=== PATIENT | male | born 1960 | race Caucasian/White ===

== ENCOUNTER 2024-03-29 08:13 | Outpatient (RCR) | payer MEDICARE, OTHER, SELFPAY ==
[2024-03-27 13:45] LABS: Basophils % (Auto) 1 % (0-2.5); Eosinophils # (Auto) 0.1 Thou/mm3 (0.0-0.5); Eosinophils % (Auto) 2 % (0-10); Hemoglobin 14.4 g/dL (13.5-16.0); Immature Granulocytes % (Auto) 0 % (0-0); Immature Granulocytes Auto 0.01 Thou/mm3 (0.00-0.00); Lymphocytes # (Auto) 0.4 Thou/mm3 (1.0-4.8); Lymphocytes % (Auto) 9 % (10-50); Mean Corpuscular HGB Conc 34.3 g/dl (31.0-37.0); Mean Corpuscular Hemoglobin 30.4 pg (25.0-35.0); Mean Corpuscular Volume 89 fL (80-100); Monocytes # (Auto) 0.6 Thou/mm3 (0.0-0.8); Monocytes % (Auto) 14 % (0-12); Neutrophils # (Auto) 3.1 Thou/mm3 (1.8-7.7); Neutrophils % (Auto) 74 % (37-80); Nucleated Red Blood Cell % 0 /100 WBC (0); Platelet Count 138 Thou/mm3 (140-440); RDW Standard Deviation 43.4 fL (35.1-43.9); Red Blood Count 4.74 Miln/mm3 (4.50-5.90); White Blood Count 4.2 Thou/mm3 (3.8-10.6)
[2024-03-27 14:09] LABS: Alanine Aminotransferase 18 U/L (10-49); Albumin, Serum 4.5 gm/dL (3.4-4.8); Albumin/Globulin Ratio 2.1 (1.2-2.2); Alkaline Phosphatase 93 U/L (46-116); Anion Gap 6 (7-16); Aspartate Amino Transferase 14 U/L (0-34); BUN/Creatinine Ratio 16 Ratio (12-20); Bilirubin,Total 0.9 mg/dL (0.3-1.2); Blood Urea Nitrogen 21 mg/dL (9-23); Calcium 9.6 mg/dL (8.3-10.6); Calcium (Corrected) 9.6 mg/dL (8.5-10.1); Carbon Dioxide 24.7 mMol/L (20.0-31.0); Chloride 109 mMol/L (98-107); Creatinine (Component) 1.3 mg/dL (0.6-1.3); Globulin 2.1 gm/dL (2.3-3.5); Glucose 89 mg/dL (74-106); Osmolality,Calculated 281 (275-295); Potassium 3.9 mMol/L (3.4-5.1); Sodium 140 mMol/L (136-145); Total Protein 6.6 gm/dL (5.7-8.2); eGFR > 60 See Note
== END 2024-04-21 23:59 | disposition home or self-care (01) ==
LOC: SCTC 08:13
PROVIDERS: Referring Provider Internal Medicine Hematology & Oncology; Visit Provider Internal Medicine Hematology & Oncology
DX: Z51.11 Encounter for antineoplastic chemotherapy (principal); C83.15 Mantle cell lymphoma, lymph nodes of inguinal region and lower limb
CPT/HCPCS: 36415; 80053; 85025; 96413; 96415; 99212; A4216; J1642; J7050; Q5119; G0463

== ENCOUNTER → 2024-05-04 | Outpatient (CLI) | payer MEDICARE, OTHER, SELFPAY ==
--- NOTE | 2024-05-04 14:00 | ECHO_ITS ---
Transthoracic Echo Report Ht (in): 66 Wt (lb): 205 Exam Location: Echo Lab Status: Preadmit Fruit Raiser: Mercedes Carnes Indications: Procedure Performed: BP: / HR: Rhythm: Sinus Technical Quality: Fair MEASUREMENTS (Male / Female) Normal Values 2D ECHO LV Diastolic Diameter PLAX 5.5 cm 4.2 - 5.9 / 3.9 - 5.3 cm LV Systolic Diameter PLAX 3.8 cm IVS Diastolic Thickness 1.3 cm 0.6 - 1.0 / 0.6 - 0.9 cm LVPW Diastolic Thickness 1.3 cm 0.6 - 1.0 / 0.6 - 0.9 cm LV Relative Wall Thickness 0.5 LVOT Diameter 2.3 cm LA Volume Index 25.8 cm?/m? 16 - 28 cm?/m? Ascending Aorta Diameter 4.0 cm M-MODE Aortic Root Diameter MM 2.7 cm LA Systolic Diameter MM 3.5 cm LA Ao Ratio MM 1.3 AV Cusp Separation MM 1.7 cm DOPPLER AV Peak Velocity 341.4 cm/s AV Peak Gradient 46.6 mmHg AV Mean Gradient 29.0 mmHg AV Velocity Time Integral 77.9 cm LVOT Peak Velocity 68.3 cm/s LVOT Peak Gradient 1.9 mmHg LVOT Velocity Time Integral 16.1 cm AV Area Cont Eq vti 0.8 cm? AV Area Cont Eq pk 0.8 cm? MV Peak Velocity 84.6 cm/s MV Peak Gradient 2.9 mmHg MV Mean Velocity 47.3 cm/s MV Mean Gradient 1.0 mmHg MV Area PHT 4.3 cm? Mitral E Point Velocity 72.8 cm/s Mitral A Point Velocity 71.3 cm/s Mitral E to A Ratio 1.0 LV E' Lateral Velocity 7.3 cm/s Mitral E to LV E' Lateral Ratio 10.0 LV E' Septal Velocity 6.6 cm/s Mitral E to LV E' Septal Ratio 11.0 TR Peak Velocity 194.0 cm/s TR Peak Gradient 15.1 mmHg FINDINGS Left Ventricle Normal left ventricular size, systolic function with no obvious regional wall motion abnormalities. Mild LVH. The ejection fraction is visually estimated at 60-65%. Right Ventricle The right ventricle is normal in size and systolic function. The estimated right ventricular systoli c pressure, 20mmHg. RAP 5. Left Atrium The left atrium is normal by two-dimensional, color flow and Doppler imaging with no structural abnormalities, no thrombus formation present. Right Atrium The right atrium is normal by two-dimensional imaging, color flow and Doppler imaging with no struct ural abnormalities, no thrombus formation present. Atrial Septum The interatrial septum appears normal with no evidence of a shunt. Aorta The aorta is normal by two-dimensional, color flow and Doppler interrogation. Mitral Valve The mitral valve is normal by two-dimensional, color flow and Doppler interrogation. There is trace mitral valve regurgitation. Aortic Valve The aortic valve is trileaflet. Moderate to severe stenosis, mean gradient 31mmHg, vmax 3.6m/s. The re is trace aortic valve regurgitation. Tricuspid Valve The tricuspid valve is normal by two-dimensional, color flow and Doppler interrogation. There is tra ce tricuspid valve regurgitation. Pulmonic Valve The pulmonic valve is normal by two-dimensional, color flow and Doppler interrogation. There is no significant pulmonic valve regurgitation. Vessels The pulmonary artery appears normal. The inferior vena cava pulmonary and hepatic veins appear melba l. Pericardium The pericardium is normal by two-dimensional imaging. There is no significant pericardial effusion. CONCLUSIONS Indication: Non-Hodgkin lymphoma and Moderate to severe AV stenosis, mean gradient 31mmHg, vmax 3.68m/s. DURAN is 0.8sq cm Normal LV size and function. Mild LVH. Estimated EF 60-65% Normal RV size and function. Trace MR, AI, TR. Jorge Alberto Tanner (Electronically Signed) Final Date: 05 May 2024 08:14
== END | disposition home or self-care (01) ==
PROVIDERS: PCP Internal Medicine; Referring Provider Internal Medicine Hematology & Oncology; Visit Provider Internal Medicine Hematology & Oncology
DX: I08.3 Combined rheumatic disorders of mitral, aortic and tricuspid valves (principal); C85.88 Other specified types of non-Hodgkin lymphoma, lymph nodes of multiple sites
CPT/HCPCS: 93306

== ENCOUNTER 2024-05-07 15:40 | Emergency (ER) | payer MEDICARE, OTHER, SELFPAY ==
[2024-05-07 15:40] VITALS: BMI 32.4
[2024-05-07 15:46] VITALS: BP 141/92; PULSE 67; RESP 17; TEMP 36.6; O2SAT 97
--- NOTE | 2024-05-07 15:47 | PD.EDSKIN ---
ED Skin Abcess FB-RME/HPI General Chief complaint: Skin/Abscess/Foreign Body Stated complaint: RASH Time Seen by Provider: 05/07/24 15:45 Arrival date/time: 05/07/24 15:40 64-year-old male with lymphoma presents to the emergency department today stating that he had lesions ongoing for the last 2 and half weeks Limitations: no limitations Related Data Home Medications ?Medication ?Instructions ?Recorded ?Confirmed ibuprofen 800 mg tablet 800 mg PO Q8H PRN Pain 06/22/23 06/22/23 Previous Rx's ?Medication ?Instructions ?Recorded clindamycin HCl 150 mg capsule 150 mg PO TID #21 caps 06/23/23 prednisone 20 mg tablet 20 mg PO QDAY #5 tabs 06/23/23 mupirocin 2 % ointment topical kit 1 applic topical TID #1 ea 12/11/23 neomycin 3.5 mg-bacitracn Zn 400 0.125 g topical QDAY 7 days #56 12/11/23 unit-polymyxin 5,000 unit/g top grams spray (Triple Antibiotic S [place]) cephalexin 500 mg capsule 500 mg PO BID 7 days #14 caps 05/07/24 sulfamethoxazole 800 1 tab PO BID 7 days #14 tabs 05/07/24 mg-trimethoprim 160 mg tablet (Bactrim DS) Allergies Allergy/AdvReac Type Severity Reaction Status Date / Time lisinopril AdvReac Mild Cough Verified 04/27/23 15:15 promethazine AdvReac Mild Flushing Verified 04/27/23 15:15 Review of Systems Review of Systems Systems Reviewed: All systems reviewed, normal except as documented Constitutional Constitutional: Reports system reviewed and no additional complaints, except as documented, Denies fever(s) and Denies headache(s) Eyes Eyes: Reports system reviewed and no additional complaints, except as documented and Denies blurry vision ENT Ears, Nose, Mouth, and Throat: Reports system reviewed and no additional complaints, except as documented, Denies headache(s), Denies nasal congestion and Denies nasal discharge Cardiovascular Cardiovascular: Reports system reviewed and no additional complaints, except as documented, Denies chest pain and Denies dyspnea Respiratory Respiratory: Reports system reviewed and no additional complaints, except as documented, Denies chest congestion, Denies cough and Denies dyspnea Gastrointestinal Gastrointestinal: Reports system reviewed and no additional complaints, except as documented and Denies abdominal pain Integumentary/Breasts Skin/Breast: Reports system reviewed and no additional complaints, except as documented, Denies rash and Reports other (Skin sores) Neurologic Neurologic: Reports system reviewed and no additional complaints, except as documented, Reports as per HPI and Denies headache(s) Past Medical History Past Medical History NEUROLOGIC: Negative Neurological Disorders CARDIAC: Negative Cardiac Disorders ED Exam General Limitations: Present no limitations General appearance: Present alert and in no apparent distress Head Head exam: Present atraumatic Eye Eye exam: Present normal appearance, PERRL and EOMI ENT ENT exam: Present normal exam, normal oropharynx and mucous membranes moist Neck Neck exam: Present normal inspection, full ROM and trachea midline Chest Chest inspection: Present normal inspection and symmetric chest wall rise Respiratory Respiratory exam: Present normal lung sounds bilaterally Cardiovascular Cardiovascular exam: Present regular rate, normal rhythm and normal heart sounds Abdominal Exam Abdominal exam: Present soft and normal bowel sounds Extremities Exam Extremities exam: Present normal inspection and full ROM Back Exam Back exam: Present normal inspection and full ROM Neurological Exam Neurological exam: Present alert, oriented X3 and CN II-XII intact Psychiatric Psychiatric exam: Present normal affect and normal mood Skin Skin exam: Present warm, dry and other (Skin sores) Course Quality Measures none Orders Category Date Time Status Wound Culture and Gram Stain Stat Lab 05/07/24 15:45 Ordered Vital Signs Vital signs: Vital Signs Temperature 98 F 05/07/24 15:46 Pulse Rate 67 05/07/24 15:46 Respiratory Rate 17 05/07/24 15:46 Blood Pressure 141/92 H 05/07/24 15:46 Pulse Oximetry (%) 97 05/07/24 15:46 Oxygen Delivery Method Room Air 05/07/24 15:46 O2 saturation 97% room air within normal limits Skin / Abscess / Foreign Body MDM Narrative MDM Narrative:: 64-year-old male with lymphoma presents to the emergency department today stating that he had lesions ongoing for the last 2 and half weeks Patient has 6 separate skin sores wound culture obtained Patient does not appear ill or toxic in no acute distress Patient discharged home with antibiotics Please follow up with your primary care doctor in the next 24-48hrs for any worsening symptoms return here immediately Patient data External records reviewed:: [facility] previous records Clinical information provided by:: patient Social determinants that could affect healthcare access:: none Patient has the following chronic illnesses:: see history How is presenting disease/condition affected by chronic disease/condition?: no chronic disease Evaluation data The following diagnostics were reviewed and interpreted by me:: lab results Lab and/or radiology exams considered but not ordered:: Wound culture sent Interpretation Summary: Wound culture sent Medications / Prescriptions Medications or Prescriptions considered but not ordered:: Given Medication administrations:: Given Rx Consultations Consultation(s) initiated? (list below): No Diagnosis Skin/Abscess Differential Diagnosis: abscess of skin or subcutaneous tissue, cellulitis and impetigo Most likely diagnosis given after review of the tests above:: Skin sores Admission Indicated Admission indicated?: not indicated Admission Request Was there a request for admission?: No Disposition Plan Disposition Plan: Discharge Discharge Attestation Discharge Attestation: The patient and all family members were given an opportunity to ask questions and understood the discharge instructions. Discharge instructions specifically effects, indications for sooner follow up or return to the emergency department, and the expected course of current diagnosis. Patient condition: Stable Discharge Plan Plan Patient Disposition: HOME (Self Care) Disposition Comment: Stable Prescriptions/Referrals Prescriptions/Med Rec: New sulfamethoxazole-trimethoprim [Bactrim DS] 800-160 mg tablet 1 tab PO BID 7 Days Qty: 14 0RF cephalexin 500 mg capsule 500 mg PO BID 7 Days Qty: 14 0RF No Action mupirocin 2 % ointment kit 1 applic topical TID Qty: 1 0RF Triple Antibiotic S [place] 3.5-400-5,000 qs-mpyp-kecf aerosol,spray 0.125 g topical QDAY 7 Days Qty: 56 1RF ibuprofen 800 mg Tablet 800 mg PO Q8H PRN (Reason: Pain) clindamycin HCl 150 mg capsule 150 mg PO TID Qty: 21 0RF prednisone 20 mg tablet 20 mg PO QDAY Qty: 5 0RF Problem List Clinical Impression: Skin ulcer Patient/Caregiver Discharge Instructions Education Materials: Wound Care Additional Instructions: Please follow up with your primary care doctor in the next 24-48hrs for any worsening symptoms return here immediately Print Language: Cambodian Stand Alone Forms: Kori Award Info., Patient Portal Info Letter PA/DIPLOMATIC INTERPRETER Supervising Physician PA/DIPLOMATIC INTERPRETER Supervising Physician: Dr. zhu
== END 2024-05-07 17:49 | disposition home or self-care (01) ==
LOC: SERX 16:09
PROVIDERS: Emergency Provider Emergency Medicine
DX: L98.499 Non-pressure chronic ulcer of skin of other sites with unspecified severity (principal)
CPT/HCPCS: 87070; 87077; 87186; 87205; 99283

== ENCOUNTER → 2024-05-30 | Outpatient (CLI) | payer MEDICARE, OTHER, SELFPAY ==
[2024-05-30 10:52] LABS: Collection Type, Urine Clean Catch; Squamous Epithelial Cell,Urine 0 /hpf (0-5)
[2024-05-30 12:10] LABS: Basophils % (Auto) 1 % (0-2.5); Eosinophils # (Auto) 0.2 Thou/mm3 (0.0-0.5); Eosinophils % (Auto) 5 % (0-10); Hematocrit 43.6 % (41.0-53.0); Hemoglobin 14.7 g/dL (13.5-16.0); Immature Granulocytes % (Auto) 0 % (0-0); Immature Granulocytes Auto 0.01 Thou/mm3 (0.00-0.00); Lymphocytes # (Auto) 0.4 Thou/mm3 (1.0-4.8); Lymphocytes % (Auto) 13 % (10-50); Mean Corpuscular HGB Conc 33.7 g/dl (31.0-37.0); Mean Corpuscular Hemoglobin 29.2 pg (25.0-35.0); Mean Corpuscular Volume 87 fL (80-100); Monocytes # (Auto) 0.7 Thou/mm3 (0.0-0.8); Monocytes % (Auto) 19 % (0-12); Neutrophils # (Auto) 2.2 Thou/mm3 (1.8-7.7); Neutrophils % (Auto) 62 % (37-80); Nucleated Red Blood Cell % 0 /100 WBC (0); Platelet Count 147 Thou/mm3 (140-440); RDW Standard Deviation 41.2 fL (35.1-43.9); Red Blood Count 5.04 Miln/mm3 (4.50-5.90); White Blood Count 3.5 Thou/mm3 (3.8-10.6)
[2024-05-30 12:13] LABS: Bilirubin,Urine Negative (Negative); Blood,Urine Negative (Negative); Clarity,Urine Clear (Clear/Hazy); Color,Urine Yellow (Lt Yel-Yel); Glucose, Urine Negative (Negative); Ketones,Urine Negative (Negative); Leukocyte Esterase,Urine Negative (Negative); Nitrite,Urine Negative (Negative); PH,Urine 6.5 (5.0-7.0); Protein,Urine Negative (Neg - Trace); RBC,Urine 4 /hpf (0-3); Urobilinogen,Urine Negative mg/dL (0.0-1.0); WBC,Urine < 1 /hpf (0-5)
[2024-05-30 12:19] LABS: Prostate Specific Antigen 1.41 ng/mL (0-4.00)
[2024-05-30 12:20] LABS: Glucose Estimated Average 100 mg/dL (80-131); Hemoglobin A1C 5.1 % Hgb (4.8-6.0)
[2024-05-30 12:23] LABS: Alanine Aminotransferase 21 U/L (10-49); Albumin, Serum 4.9 gm/dL (3.4-4.8); Albumin/Globulin Ratio 2.3 (1.2-2.2); Alkaline Phosphatase 110 U/L (46-116); Anion Gap 8 (7-16); Aspartate Amino Transferase 12 U/L (0-34); BUN/Creatinine Ratio 14 Ratio (12-20); Bilirubin,Total 0.6 mg/dL (0.3-1.2); Blood Urea Nitrogen 18 mg/dL (9-23); Calcium 9.9 mg/dL (8.3-10.6); Calcium (Corrected) 9.9 mg/dL (8.5-10.1); Carbon Dioxide 28.6 mMol/L (20.0-31.0); Cardiac Risk Estimate 4.5 RATIO (4.0-6.7); Chloride 106 mMol/L (98-107); Cholesterol 221 mg/dL (132-200); Creatinine (Component) 1.3 mg/dL (0.6-1.3); Globulin 2.1 gm/dL (2.3-3.5); Glucose 103 mg/dL (74-106); HDL Cholesterol 49 mg/dL (40-60); LDL Cholesterol,Calculated 150 mg/dL (0-130); Osmolality,Calculated 286 (275-295); Potassium 4.2 mMol/L (3.4-5.1); Sodium 143 mMol/L (136-145); Thyroid Stimulating Hormone 1.17 uIU/mL (0.55-4.78); Triglycerides 112 mg/dL (30-150); Uric Acid 7.1 mg/dL (3.7-9.2); Vitamin B12 638 pg/mL (211-911); Vitamin D 25 Hydroxy Total 12.2 ng/mL (7.3-40.2); eGFR > 60 See Note
== END | disposition home or self-care (01) ==
PROVIDERS: PCP Internal Medicine; Referring Provider Internal Medicine; Visit Provider Internal Medicine
DX: Z00.00 Encounter for general adult medical examination without abnormal findings (principal)
CPT/HCPCS: 36415; 80053; 80061; 81001; 82306; 82607; 83036; 84153; 84443; 84550; 85025

== ENCOUNTER 2024-06-06 06:59 | Outpatient (RCR) | payer MEDICARE, OTHER, SELFPAY ==
[2024-06-05 14:52] LABS: Basophils # (Auto) 0.1 Thou/mm3 (0.0-0.2); Basophils % (Auto) 1 % (0-2.5); Eosinophils # (Auto) 0.2 Thou/mm3 (0.0-0.5); Eosinophils % (Auto) 5 % (0-10); Hematocrit 43.6 % (41.0-53.0); Hemoglobin 14.8 g/dL (13.5-16.0); Immature Granulocytes % (Auto) 0 % (0-0); Immature Granulocytes Auto 0.01 Thou/mm3 (0.00-0.00); Lymphocytes # (Auto) 0.4 Thou/mm3 (1.0-4.8); Lymphocytes % (Auto) 9 % (10-50); Mean Corpuscular HGB Conc 33.9 g/dl (31.0-37.0); Mean Corpuscular Hemoglobin 29.5 pg (25.0-35.0); Mean Corpuscular Volume 87 fL (80-100); Monocytes # (Auto) 0.4 Thou/mm3 (0.0-0.8); Monocytes % (Auto) 10 % (0-12); Neutrophils # (Auto) 3.1 Thou/mm3 (1.8-7.7); Neutrophils % (Auto) 74 % (37-80); Nucleated Red Blood Cell % 0 /100 WBC (0); Platelet Count 124 Thou/mm3 (140-440); RDW Standard Deviation 41.6 fL (35.1-43.9); Red Blood Count 5.02 Miln/mm3 (4.50-5.90); White Blood Count 4.1 Thou/mm3 (3.8-10.6)
[2024-06-05 15:31] LABS: Alanine Aminotransferase 23 U/L (10-49); Albumin, Serum 4.7 gm/dL (3.4-4.8); Albumin/Globulin Ratio 2.4 (1.2-2.2); Alkaline Phosphatase 99 U/L (46-116); Anion Gap 10 (7-16); Aspartate Amino Transferase 21 U/L (0-34); BUN/Creatinine Ratio 14 Ratio (12-20); Bilirubin,Total 0.7 mg/dL (0.3-1.2); Blood Urea Nitrogen 18 mg/dL (9-23); Calcium 9.7 mg/dL (8.3-10.6); Calcium (Corrected) 9.7 mg/dL (8.5-10.1); Carbon Dioxide 26.6 mMol/L (20.0-31.0); Chloride 105 mMol/L (98-107); Creatinine (Component) 1.3 mg/dL (0.6-1.3); Glucose 121 mg/dL (74-106); Osmolality,Calculated 286 (275-295); Potassium 3.9 mMol/L (3.4-5.1); Sodium 142 mMol/L (136-145); Total Protein 6.7 gm/dL (5.7-8.2); eGFR > 60 See Note
== END 2024-06-22 23:59 | disposition home or self-care (01) ==
LOC: SCTC 06:59
PROVIDERS: PCP Internal Medicine; Referring Provider Internal Medicine; Visit Provider Internal Medicine Hematology & Oncology
DX: Z51.11 Encounter for antineoplastic chemotherapy (principal); C83.15 Mantle cell lymphoma, lymph nodes of inguinal region and lower limb; R16.1 Splenomegaly, not elsewhere classified
CPT/HCPCS: 36591; 80053; 85025; 96413; 96415; A4216; J1642; J7050; Q5119

== ENCOUNTER 2024-07-24 11:06 | Inpatient (IN) | payer MEDICARE, OTHER, SELFPAY ==
[2024-07-24] VITALS (49 sets, daily range): BP systolic 110–195; BP diastolic 58–114; PULSE 54–79; RESP 9–98; TEMP 36.4–37.2; O2SAT 91–100; BMI 33.9; BMI 32.7
--- NOTE | 2024-07-24 11:08 | XR_ITS ---
Examination: CTA carotids with intravenous contrast CTA brain, head with intravenous contrast. 2-D sagittal, coronal reconstructions. 3-D reconstructions. Exam date and time: July 24, 2024 1132 hours INDICATIONS: Stroke alert, onset slurred speech left-sided body weakness today CTDI: vol (mGy) 54.5 DLP: (mGycm) 542 Technique: Multiple CTA axial brain, head carotid images post intravenous contrast injection 75 cc, [id number]. 2-D sagittal, coronal reconstructions. 3-D reconstructions, 3-D post processing including vascular maximum intensity projection images. Low dose protocols were performed. One or more of the following dose reduction techniques were used; automated exposure control, adjustment of the mA and/or KV according to patient size, use of iterative reconstruction technique. Findings: No significant common carotid carotid bifurcation or internal carotid artery stenoses Mildly dominant left vertebral artery with no critical stenoses Intracranial vertebral arteries basilar artery and posterior cerebral branches fill with no occlusions Moderate calcification juxtasellar portions of the internal carotid arteries No large vessel occlusions involving M1 segments middle cerebral arteries middle cerebral artery trifurcation vessels or anterior cerebral arteries IMPRESSION: No significant neck arterial stenoses No cerebral large vessel arterial occlusions or thrombus noted
--- NOTE | 2024-07-24 11:08 | XR_ITS ---
Examination: CT brain head without contrast. 2-D sagittal coronal reconstructions Date and time of exam: July 24, 2024 1114 hours INDICATIONS: Stroke alert, onset slurred speech left-sided body weakness beginning 10:00 AM today CTDI: vol (mGy):54.2 DLP: (mGycm):1118 Technique: Multiple CT axial sections of the brain have been obtained, 5 mm slice thickness. Contrast has not been administered. 2-D sagittal, coronal reconstructions have been obtained Low dose protocols were performed. One or more of the following dose reduction techniques were used; automated exposure control, adjustment of the mA and/or KV according to patient size, use of iterative reconstruction technique. Findings: No significant ventricular enlargement. 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 No mass effect or midline shift Basal cisterns are not remarkable. Fourth ventricle is midline. Cranial vault intact. Impression: Negative for acute hemorrhage, mass effect or midline shift Subtle low density areas in the right parietal lobe, axial image 20, suspicious for early acute infarct in distribution of the right middle cerebral artery
--- NOTE | 2024-07-24 11:08 | EKG_ITS ---
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1960 Requested By: Alonso Black Order Number: [id number] Reading MD: Alonso Black Measurements Intervals [place] Rate: 62 P: 32 SC: 205 QRS: -41 QRSD: 140 T: 1 QT: 448 QTc: 455 Interpretive Statements SINUS RHYTHM LEFT AXIS DEVIATION [QRS AXIS < -30] INTRAVENTRICULAR CONDUCTION DELAY [130+ ms QRS DURATION] MODERATE VOLTAGE CRITERIA FOR LVH, CONSIDER NORMAL VARIANT [MEETS CRITERIA IN ONE OF: R(aVL), S(V1), R(V5), R(V5/V6)+S(V1)] Compared to ECG 07/28/2022 11:19:36 Intraventricular conduction delay now present Incomplete right bundle-branch block no longer present /store/S0/[id number]/ecg/[id number].pdf
--- NOTE | 2024-07-24 11:10 | XR_ITS ---
Examination: AP chest single view TECHNIQUE: Portable AP sitting chest single view Exam date and time: July 24, 2024 1208 hours INDICATIONS: Shortness of breath today. FINDINGS: No significant cardiac enlargement No lobar pneumonia or pulmonary edema Right lung clear Right internal jugular Port-A-Cath tip SVC IMPRESSION: No lobar pneumonia or pulmonary edema
--- NOTE | 2024-07-24 11:10 | PC.NURSE ---
PT TO CT WITH RN AND LEAN SENSEI AT BEDSIDE. PT ON CC MONITOR. STROKE ALERT WAS INITIATED ON PT'S ARRIVAL
--- NOTE | 2024-07-24 11:10 | PC.NURSE ---
PT TO CT
[2024-07-24 11:18] LABS: Basophils % (Auto) 0 % (0-2.5); Eosinophils # (Auto) 0.2 Thou/mm3 (0.0-0.5); Eosinophils % (Auto) 3 % (0-10); Hematocrit 44.7 % (41.0-53.0); Hemoglobin 15.3 g/dL (13.5-16.0); Immature Granulocytes % (Auto) 0 % (0-0); Immature Granulocytes Auto 0.03 Thou/mm3 (0.00-0.00); Lymphocytes # (Auto) 0.8 Thou/mm3 (1.0-4.8); Lymphocytes % (Auto) 11 % (10-50); Mean Corpuscular HGB Conc 34.2 g/dl (31.0-37.0); Mean Corpuscular Hemoglobin 29.3 pg (25.0-35.0); Mean Corpuscular Volume 86 fL (80-100); Monocytes # (Auto) 0.8 Thou/mm3 (0.0-0.8); Monocytes % (Auto) 12 % (0-12); Neutrophils % (Auto) 73 % (37-80); Nucleated Red Blood Cell % 0 /100 WBC (0); Platelet Count 139 Thou/mm3 (140-440); RDW Standard Deviation 43.2 fL (35.1-43.9); Red Blood Count 5.22 Miln/mm3 (4.50-5.90); White Blood Count 6.8 Thou/mm3 (3.8-10.6)
--- NOTE | 2024-07-24 11:29 | EDNOTE_ITS ---
Neuro Symptoms Deficit-RME/HPI General Chief Complaint: Neuro Symptoms/Deficit Stated Complaint: STROKE Time Seen by Provider: 07/24/24 11:08 Arrival date/time: 07/24/24 11:06 RME / HPI RME / HPI Narrative: DR. BELTRAN MAIN ED EVALUATION: This section includes all my notes and documentations, including HPI, PE, and ED course.? 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 Last PET scan normal, under the care of oncologist Dr. Chavarria, with chronic left submandibular mass presents to the Emergency Department with dizziness, slurred speech, left sided heaviness, ataxia, headache, and nausea and vomiting. Started about an hour ago. No other complaints. ROS: All negative except as documented in HPI. Physical Exam: General:? Alert and oriented.? No acute distress when remaining still.? Eyes:? Conjunctivae and lids clear. ENT:? No nasal congestion.? ? Neck:? Supple. No carotid bruit. No JVD. Heart:? RRR. Lungs:? No respiratory distress.? Good air movement.? No rhonchi, wheezing, rales.? Abdomen:? Soft and nontender.? Legs:? No clubbing, cyanosis, edema. Skin:? Warm and dry.? Neuro:? Alert and oriented X 3.? Cranial nerves II to XII grossly normal. No obvious peripheral motor deficits. I reviewed all diagnostic test results. My interpretation of the EKG is?sinus rhythm with no acute ST?T changes. My interpretation of the chest x-ray is no lobar pneumonia, pulmonary edema, or acute findings. My review of the head CT report is?subtle low density areas in the right parietal lobe. My review of the head/neck CT report is no acute findings. Blood tests unremarkable. At this point, diagnoses include Acute CVA Treatment here included Tylenol and tenecteplase. Patient started noticing improvement. I discussed the case with our telehealth neurologist and heating and ventilating drafter.? About the presentation and exam and diagnostics and treatments here.? And need of further care in the hospital. Will accept the patient. Alonso Beltran MD Related Data Home Medications ?Medication ?Instructions ?Recorded ?Confirmed ibuprofen 800 mg tablet 800 mg PO Q8H PRN Pain 06/2206/22/23 Previous Rx's ?Medication ?Instructions ?Recorded clindamycin HCl 150 mg capsule 150 mg PO TID #21 caps 06/23/23 prednisone 20 mg tablet 20 mg PO QDAY #5 tabs mupirocin 2 % ointment topical kit 1 applic topical TI D #1 ea 12/11/23 neomycin 3.5 mg-bacitracn Zn 400 0.125 g topical QDAY 7 days #56 12/11/23 unit-polymyxin 5,000 unit/g top grams spray (Triple Antibiotic [place]) Allergies Allergy/AdvReac Type Severity Reaction Status Date / Time lisinopril AdvReac Mild Cough Verified 07/24/24 11:28 promethazine AdvReac Mild Flushing Verified 07/24/24 11:28 Course Quality Measures none Orders Category Date Time Status Bedside Blood Glucose NOW Care 07/24/24 11:08 Active COVID-19 Screening Questionnaire NOW Care 07/24/24 12:27 Active Department Manager NOW Care 07/24/24 11:08 Active Continuous Pulse Oximetry NOW Care 07/24/24 11:08 Completed Decision to Admit X1 Care 07/24/24 12:27 Completed EKG (ED ONLY) *Do not use* NOW Care 07/24/24 11:08 Completed In and Out Catheter NEEDED Care 07/24/24 11:08 Active Insert IV NOW Care 07/24/24 11:08 Active NIH Stroke Scale Q4HX8,QSHIFT Care 07/24/24 11:57 Active NIH Stroke Scale now Care 07/24/24 11:08 Active NPO NOW Care 07/24/24 11:08 Active Neuro Check Q15M Care 07/24/24 11:57 Active Nurse Swallow Screen x1 Care 07/24/24 11:08 Active Vital Signs Q15M Care 07/24/24 11:57 Active Consult to Neurology / Tele-Neurology Routine Cons 07/24/24 11:[address] angio stroke protocol Stat Exams 07/24/24 11:[address] stroke protocol Stat Exams 07/24/24 11:08 Completed EKG (ED Only) Stat Exams 07/24/24 11:08 Draft XR chest 1V portable Stat Exams 07/24/24 11:10 Completed Alcohol, Blood Medical Stat Lab 07/24/24 11:13 Completed Arterial Blood Gas Stat Lab 07/24/24 11:09 Ordered B-Type Natriuretic Peptide Stat Lab 07/24/24 11:13 Completed CBC Stat Lab 07/24/24 11:13 Completed Comprehensive Metabolic Panel Stat Lab 07/24/24 11:13 Completed Drug Screen,Urine Stat Lab 07/24/24 11:08 Ordered Magnesium Stat Lab 07/24/24 11:13 Completed Partial Thromboplastin Time Stat Lab 07/24/24 11:13 Completed Prothrombin Time with INR Stat Lab 07/24/24 11:13 Completed Troponin I Stat Lab 07/24/24 11:13 Completed Acetaminophen Tab [Tylenol ES Tab] Med 07/24/24 12:15 Discontinued 1,000 mg PO X1 ONE Labetalol IV [Trandate IV] Med 07/24/24 11:08 Hold 10 mg IV Q15M PRN Labetalol IV [Trandate IV] Med 07/24/24 11:41 Active 10 mg IVP PRNMRX1 PRN Labetalol IV [Trandate IV] Med 07/24/24 11:41 Active 10 mg IVP PRNMRX1 PRN Morphine Inj Med 07/24/24 11:15 Discontinued 2 mg IVP X1 ONE Nicardipine/Ns 20Mg Ivpb [Cardene Ivpb] Med 07/24/24 11:41 Active 20 mg in 200 ml IV 5 mg/hr Ondansetron Inj [Zofran Inj] Med 07/24/24 11:08 Active 4 mg IV Q4HR PRN Sodium Chloride 0.9% 1000 ml [Ns] 1,000 ml Med 07/24/24 11:15 Active IV Q10H Tenecteplase Inj [TNKase Inj] Med 07/24/24 11:41 Discontinued 23.8 mg IV X1 ONE Tenecteplase Inj [TNKase Inj] Med 07/24/24 11:34 Discontinued 50 mg .ROUTE .STK-MED ONE Oxygen Delivery NOW RT 07/24/24 11:08 Active Vital Signs Vital signs: Vital Signs Pulse Rate 63 07/24/24 11:08 Respiratory Rate 16 07/24/24 11:08 Neuro Symptoms / Deficit MDM Narrative MDM Narrative:: ILina am scribing for and in the presence of Dr. Beltran. Patient data External records reviewed:: [facility] previous records (Reviewed last oncology note by Dr. 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 Chavarria, with chronic left submandibular mass/lymph node-tender and palpable How is presenting disease/condition affected by chronic disease/condition?: caused by Evaluation data The following diagnostics were reviewed and interpreted by me:: lab results, radiology exam(s) and EKG tracing(s) (My interpretation of the EKG is: Sinus rhythm (62 bpm) with nonspecific ST-T changes. Alonso Beltran MD) Lab and/or radiology exams considered but not ordered:: none Interpretation Summary: Acute CVA Medications / Prescriptions Medications or Prescriptions considered but not ordered:: none Medication administrations:: Medication Administration History Acetaminophen (Acetaminophen 325 Mg Tablet) 650 mg PO Q6H PRN PRN Reason: Fever >101.5 Stop: 08/23/24 12:39 Sodium Chloride (Ns) 1,000 mls @ 100 mls/hr IV Q10H NAVA Stop: 08/23/24 11:14 Last Admin: 07/24/24 12:02 Dose: 100 mls/hr Documented By: ER Nicardipine/Sodium Chloride (Cardene Ivpb) 20 mg in 200 mls @ 50 mls/hr IV .Q4H PRN; Protocol PRN Reason: Per Nicardipine Stroke Protocol Stop: 08/23/24 11:40 Labetalol HCl (Labetalol Inj 5 Mg/Ml Vial 20 Ml) 10 mg IV Q15M PRN PRN Reason: HYPER Labetalol HCl (Labetalol Inj 5 Mg/Ml Vial 20 Ml) 10 mg IVP PRNMRX1 PRN PRN Reason: SBP > 185 mmHg and/or DBP > 110 Last Admin: 07/24/24 12:18 Dose: 10 mg Documented By: ER Labetalol HCl (Labetalol Inj 5 Mg/Ml Vial 20 Ml) 10 mg IVP PRNMRX1 PRN PRN Reason: SBP > 180 mmHg or DBP > 105 Last Admin: 07/24/24 11:45 Dose: 10 mg Documented By: ER Ondansetron HCl (Ondansetron Inj 2 Mg/Ml Inj 2 Ml) 4 mg IV Q4HR PRN PRN Reason: NAUSEA OR VOMITING Stop: 08/23/24 11:07 Last Admin: 07/24/24 12:17 Dose: 4 mg Documented By: ER Discontinued Medications Acetaminophen (Acetaminophen 500 Mg Tablet) 1,000 mg PO X1 ONE Stop: 07/24/24 12:16 Last Admin: 07/24/24 12:17 Dose: 1,000 mg Documented By: ER Morphine Sulfate (Morphine Sulf Inj 10 Mg/Ml Vial) 2 mg IVP X1 ONE Stop: 07/24/24 11:16 Tenecteplase (Tenecteplase Inj 50 Mg Vial) 23.8 mg 0.25 mg/kg (23.8 mg) IV X1 ONE Stop: 07/24/24 11:42 Last Admin: 07/24/24 11:50 Dose: 23.8 mg Documented By: ER Co-signed By: DO Tenecteplase (Tenecteplase Inj 50 Mg Vial) Confirm Administered Dose 50 mg .ROUTE .STK-MED ONE Stop: 07/24/24 11:35 Last Admin: 07/24/24 11:58 Dose: Not Given Documented By: ER Non-Admin Reason: Override Medication Tylenol and Zofran and IV fluid and tenecteplase Consultations Consultation(s) initiated? (list below): Yes Consultation #1 (Physician, Specialty, Details): Discussed test HPI, PMHx, lab, radiology results and/or management with our telehealth neurologist and heating and ventilating drafter. Will admit for further evaluation and management. Accepts patient for admission. Time: 12:26 Diagnosis Neuro Differential Diagnosis: convulsions, delirium, subarachnoid hemorrhage, peripheral neuropathy, cerebrovascular accident and transient cerebral ischemia Most likely diagnosis given after review of the tests above:: Acute CVA Admission Indicated Admission indicated?: indicated Explain why admission is indicated or not indicated:: Acute CVA Admission Request Was there a request for admission?: Yes Admission Attestation Admission request attestation: Discussed case with ICU service regarding admission. Discussed patients ED course, exam findings, labs, and radiology results. The heating and ventilating drafter [agrees] to accept the patient for admission. Disposition Plan Disposition Plan: Admit Discharge Plan Plan Patient Disposition: Admit Acute Care w/in Hospital Problem List Clinical Impression: Acute CVA (cerebrovascular accident)
[2024-07-24 11:30] LABS: Partial Thromboplastin Time 22.8 Seconds (22.0-36.0); Prothrombin Time 10.5 Seconds (9.0-12.2)
[2024-07-24] MEDS: LABETALOL INJ 5 MG/ML VIAL 20 ML 10 MG IVP ×2 (11:45→12:18)
[2024-07-24 11:50] LABS: B-Type Natriuretic Peptide 40 pg/mL (0-100)
[2024-07-24] MEDS: TENECTEPLASE INJ 50 MG VIAL 23.8 MG IV (11:50)
[2024-07-24] MEDS: SODIUM CHLORIDE 0.9% 1000 ML 1,000 ML 100 ML IV (12:02)
[2024-07-24 12:05] LABS: Alanine Aminotransferase 29 U/L (10-49); Albumin, Serum 4.5 gm/dL (3.4-4.8); Alcohol, Blood Medical < 3.0 mg/dL (0-10.0); Alkaline Phosphatase 102 U/L (46-116); Anion Gap 8 (7-16); Aspartate Amino Transferase 19 U/L (0-34); BUN/Creatinine Ratio 16 Ratio (12-20); Bilirubin,Total 0.7 mg/dL (0.3-1.2); Blood Urea Nitrogen 19 mg/dL (9-23); Calcium 9.7 mg/dL (8.3-10.6); Calcium (Corrected) 9.7 mg/dL (8.5-10.1); Carbon Dioxide 25.3 mMol/L (20.0-31.0); Chloride 111 mMol/L (98-107); Creatinine (Component) 1.2 mg/dL (0.6-1.3); Estimated Creatinine Clearance 66.3 mL/min (>60); Globulin 2.2 gm/dL (2.3-3.5); Glucose 110 mg/dL (74-106); Magnesium 2.1 mg/dL (1.6-2.6); Osmolality,Calculated 290 (275-295); Sodium 144 mMol/L (136-145); Total Protein 6.7 gm/dL (5.7-8.2); Troponin I < 0.020 ng/mL (0.0-0.045); eGFR > 60 See Note
--- NOTE | 2024-07-24 12:13 | ESCONSULT_ITS ---
Tele Neuro Consultation Consultation Date 07/24/24 Most Recent Vital Signs Last Vital Signs Pulse 66 07/24/24 11:45 Resp 18 07/24/24 11:10 BP 184/105 H 07/24/24 11:45 Pulse Ox 98 07/24/24 11:10 O2 Del Method Room Air 07/24/24 11:10 Laboratory-Coagulation Panel PT 10.5 Seconds (9.0-12.2) 07/24/24 11:13 INR 1.0 (0.9-1.3) 07/24/24 11:13 APTT 22.8 Seconds (22.0-36.0) 07/24/24 11:13 Consultation Narrative [facility] Tele[facility]rology Consult Services Patient Name:???Jeffrey Alvarez Date of :???1960 Identification Number:??? Date of Service:???07/24/2024 11:07:35 Diagnosis:?I63.89 - Cerebrovascular accident (CVA) due to other mechanism ([facility]) Impression: ?64 y/o M, with history of B-cell lymphoma on rituximab, as well as HLD, presenting to hospital with abrupt onset vertiginous dizziness, left-sided heaviness and reduced fine motor control, dysarthria and ataxic gait, onset of symptoms at 10:00 AM. NIHSS is 3 (mild dysarthria, mild LUE and LLE ataxia), gait also noted to be imbalanced/ataxic. NCHCT did not show hemorrhage, questionable early ischemic changes in right parietal region. CTA head/neck without LVO. ? ?I had discussion with patient about concern for stroke, and treatment option of TNK. Discussed benefits versus risks of medication (including 5-6% risk of major hemorrhage, 2-4% risk of ICH which could be life-threatening). After excluding contraindications, and confirming platelets were over 100K and coags were normal, patient agreed to TNK administration. We did administer labetalol 10 mg IV x 1 since one of his SBP was 184, just under threshold. TNK administered at 11:50 AM. ? ?Patient to be admitted to ICU for post-TNK monitoring and further stroke evaluation. Our recommendations are outlined below. Recommendations: IV Tenecteplase recommended. I confirmed the following. (Patient name, , MRN, Blood Pressure, dose of Thrombolytic and waste, weight completed by stretcher/scale not stated weight, have ED staff inform ED MD of thrombolytic decision) Thrombolytic bolus given Without Complication. IV Tenecteplase Total Dose ? 23.8 mg Routine post Thrombolytic monitoring including neuro checks and blood pressure control during/after treatment Monitor blood pressure Check blood pressure and neuro assessment every 15 min for 2 h, then every 30 min for 6 h, and finally every hour for 16 h. Manage Blood Pressure per post Thrombolytic protocol. ? Follow designated hospital protocol for admission and post thrombolytic care ? CT brain 24 hours post Thrombolytic ? NPO until swallowing screen performed and passed ? No antiplatelet agents or anticoagulants (including heparin for DVT prophylaxis) in first 24 hours ? No Watson catheter, nasogastric tube, arterial catheter or central venous catheter for 24 hr, unless absolutely necessary ? Telemetry ? Bedside swallow evaluation ? HOB less than 30 degrees ? Euglycemia ? Avoid hyperthermia, PRN acetaminophen ? DVT prophylaxis ? Inpatient Neurology Consultation ? Stroke evaluation as per inpatient neurology recommendations Discussed with ED physician Advanced Imaging:CTA Head and Neck Completed. LVO:No Patient in not a candidate for EFFIE Metrics: Last Known Well: 07/24/2024 10:00:00 Dispatch Time: 07/24/2024 11:07:35 Arrival Time: 07/24/2024 11:06:00 Initial Response Time: 07/24/2024 11:14:02Symptoms: dizziness, imbalance, left- sided weakness. Initial patient interaction: 07/24/2024 11:18:27 NIHSS Assessment Completed: 07/24/2024 11:26:00Patient is a candidate for Thrombolytic. Thrombolytic Medical Decision: 07/24/2024 11:50:03 Needle Time: 07/24/2024 11:50:11Weight Noted by Staff: 95.3 kg I personally Reviewed the CT Head and it Showed no hemorrhage; potential subtle evidence of early ischemic changes in right parietal region Primary Provider Notified of Diagnostic Impression and Management Plan on: 07/24/2024 12:02:21 Extended thrombolytic management related to: ?? More extensive discussion on the management decision was requested by patient or family ?? Delays related to blood pressure management Thrombolytic Contraindications: Last Known Well > 4.5 hours:?No CT Head showing hemorrhage:?No Ischemic stroke within 3 months:?No Severe head trauma within 3 months:?No Intracranial/intraspinal surgery within 3 months:?No History of intracranial hemorrhage:?No Symptoms and signs consistent with an SAH:?No GI malignancy or GI bleed within 21 days:?No Coagulopathy: Platelets <100 000 /mm3, INR >1.7, aPTT>40 s, or PT >15 s:?No Treatment dose of LMWH within the previous 24 hrs:?No Use of NOACs in past 48 hours:?No Glycoprotein IIb/IIIa receptor inhibitors use:?No Symptoms consistent with infective endocarditis:?No Suspected aortic arch dissection:?No Intra-axial intracranial neoplasm:?No Thrombolytic Decision and Management Plan: Management with thrombolytic treatment was explained to the Patient and Family as was risks and benefits and alternatives to the treatment. Patient agrees with the decision to proceed with thrombolytic treatment. . All questions were answered and the Patient and Family expressed understanding of the treatment plan. History of Present Illness:Patient is a 64 year old Male. Patient was brought by private transportation with symptoms of dizziness, imbalance, left-sided weakness. Patient is able to provide history. 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 He was getting ready for work around 10:00 AM, then suddenly developed profound tinnitus in both ears, and vertiginous dizziness, with nausea and vomiting. He had associated gait imbalance, as well as impaired fine motor control of his left arm. At one point, symptoms started to ease up a bit, although he developed headache. However, symptoms then worsened again, and so he came to ER for further evaluation. Furthermore, patient reports that his speech is slurred compared to normal. Denies any history of stroke. He is treated for B-cell lymphoma, on Rituxan. ? Past Medical History: ?Hyperlipidemia ?There is no history of Hypertension ?There is no history of Diabetes Mellitus ?There is no history of Atrial Fibrillation ?There is no history of Coronary Artery Disease ?There is no history of Stroke Other PMH:? lymphoma; prior burst compression fracture Medications: No Anticoagulant use? No Antiplatelet use Reviewed EMR for current medications Allergies:? Reviewed Social History: Smoking: No Alcohol Use: No Drug Use: No Family History: There is no family history of premature cerebrovascular disease pertinent to this consultation ROS : 14 Points Review of Systems was performed and was negative except mentioned in HPI. Past Surgical History: There Is No Surgical History Contributory To Today?s Visit ? Examination: BP(172/108),?Pulse(80), 1A: Level of Consciousness - Alert; keenly responsive?+ 0 1B: Ask Month and Age - Both Questions Right?+ 0 1C: Blink Eyes & Squeeze Hands - Performs Both Tasks?+ 0 2: Test Horizontal Extraocular Movements - Normal?+ 0 3: Test Visual Soto - No Visual Loss?+ 0 4: Test Facial Palsy (Use Grimace if Obtunded) - Normal symmetry?+ 0 5A: Test Left Arm Motor Drift - No Drift for 10 Seconds?+ 0 5B: Test Right Arm Motor Drift - No Drift for 10 Seconds?+ 0 6A: Test Left Leg Motor Drift - No Drift for 5 Seconds?+ 0 6B: Test Right Leg Motor Drift - No Drift for 5 Seconds?+ 0 7: Test Limb Ataxia (FNF/Heel-Ramos) - Ataxia in 2 Limbs?+ 2 8: Test Sensation - Normal; No sensory loss?+ 0 9: Test Language/Aphasia - Normal; No aphasia?+ 0 10: Test Dysarthria - Mild-Moderate Dysarthria: Slurring but can be understood?+ 1 11: Test Extinction/Inattention - No abnormality?+ 0 NIHSS Score:?3 NIHSS Free Text :?mild ataxia of LUE and LLE ? ?gait: ataxic, appears to stumble to the left Pre-Morbid Modified [place] Scale:0 Points = No symptoms at all Spoke with :?Dr. Escobar This consult was conducted in real time using interactive audio and video technology. Patient was informed of the technology being used for this visit and agreed to proceed. Patient located in hospital and provider located at home/office setting. Patient is being evaluated for possible acute neurologic impairment and high probability of imminent or life-threatening deterioration. I spent total of 60 minutes providing care to this patient, including time for face to face visit via telemedicine, review of medical records, imaging studies and discussion of findings with providers, the patient and/or family. Dr Bi Soto [facility] For Inpatient follow-up with [facility] physician please call [facility] at . As we are not an outpatient service for any post hospital discharge needs please contact the hospital for assistance. If you have any questions for the [facility] physicians or need to reconsult for clinical or diagnostic changes please contact us via [facility] at . ?
[2024-07-24] MEDS: ACETAMINOPHEN 500 MG TABLET 1000 MG PO (12:17)
[2024-07-24] MEDS: ONDANSETRON INJ 2 MG/ML INJ 2 ML 4 MG IV (12:17)
--- NOTE | 2024-07-24 13:00 | PC.NURSE ---
Patient brought in by due to increased weakness to L arm and leg, along with dizziness that started at 1000 while patient was shaving this morning. Patient states that he struggled to get back into bed and rest for 15min. When patient got OOB the dizziness had improved, but it was still there. Upon arrival to the ED patient had n/v, increased dizziness, and minimal slur speech per patient. Dr. Escobar at bedside, code stroke initiated. Patient taken to CT. Tele neuro consulted, and TNKase 23.8 mg given at 1150. Patient stated by 1300 L sided weakness had subsided.
--- NOTE | 2024-07-24 13:02 | PD.RESHP ---
Documentation for date of: 07/24/24 HPI History of Present Illness History of present illness: 64 y/o M, with history of B-cell lymphoma on rituximab,HLD,HTN not on any meds,mod/sever , prior burst compressincame to the hospital with CC of abrupt onset vertigio, dizziness, left-sided heaviness and reduced fine motor control, dysarthria and ataxic gait, onset of symptoms at 10:00 AM while he was getting ready for work . NIHSS was 3 (mild dysarthria, mild LUE and LLE ataxia), gait also noted to be imbalanced/ataxic.He reports that his speech is slurred compared to normal .Head CT did not show hemorrhage, questionable early ischemic changes in right parietal region. CTA head/neck without LVO.IV Tenecteplase Total Dose ? 23.8 mg PMH :B-cell lymphoma on rituximab,HLD, prior burst compression fracture Medications:rituximap Allergies:?Lisinopril?cough, promethazine?flushing Social History:Smoking: No,Alcohol Use: Occasional,Drug Use: No Family History:not significant Admitted to ICU status post tPA for closer monitoring. Review of Systems Review of Systems Systems Reviewed: All systems reviewed, normal except as documented Exam Vital Signs Pulse Resp BP Pulse Ox O2 Del Method 59 L 18 167/95 H 95 Room Air 07/24/24 12:50 07/24/24 12:50 07/24/24 12:50 07/24/24 12:50 07/24/24 12:50 Narrative Exam GENERAL: Comfortable adult seen resting comfortably in hospital bed, no acute distress VITALS: All vitals were reviewed and the pulse ox is 98% on room air HEENT: Normocephalic, atraumatic. Pupils are equal and reactive. Oral mucosa is moist. NECK: Supple, nontender, no JVD CHEST: Symmetrical, atraumatic and with equal expansion ,Nontender on palpation CARDIOVASCULAR: Heart regular rhythm & rate. S1/S2. no murmur or gallop rub or extra beats. LUNGS: Clear to auscultation bilaterally with symmetrical chest rise. No laboring tachypnea or wheezing. No intercostal subcostal retraction. No rales and no rhonchi. ABDOMEN: Soft, flat, nontender to palpation, no guarding or rebound tenderness. Active and normal bowel sounds. EXTREMITIES:Moves all 4 extremities,No B/L LE edema. SKIN: Warm and dry, no jaundice or rashes noted. NEURO: Patient is AO x 3, Cranial nerves II through XII grossly intact. There is no focal neurologic deficits noted. Upper extremity power 5/5 , lower extremity power 5/5 , sensory function intact, gaid - mild wide base gait. PSYCHIATRIC: Patient is in normal mood, cooperative, no SI or HI or hallucinations. Results: Labs 07/24/24 11:13 07/24/24 11:13 Labs: Short CBC 07/24/24 Range/Units 11:13 WBC 6.8 (3.8-10.6) Thou/mm3 Hgb 15.3 (13.5-16.0) g/dL Hct 44.7 (41.0-53.0) % Plt Count 139 L (140-440) Thou/mm3 BMP 07/24/24 11:13 Sodium 144 Potassium 4.0 Chloride 111 H Carbon Dioxide 25.3 BUN 19 Creatinine 1.2 Glucose 110 H Calcium 9.7 Cardiac Enzymes 07/24/24 Range/Units 11:13 Troponin I < 0.020 (0.0-0.045) ng/mL Liver Function 07/24/24 Range/Units 11:13 Total Bilirubin 0.7 (0.3-1.2) mg/dL AST 19 (0-34) U/L ALT 29 (10-49) U/L Alkaline Phosphatase 102 (46-116) U/L Albumin 4.5 (3.4-4.8) gm/dL Quality Measures Quality Measures none Advance care planning discussed with:: patient Medications Home Medications and Allergies Home Medications ?Medication ?Instructions ?Recorded ?Confirmed ?Type ibuprofen 800 mg tablet 800 mg PO Q8H PRN Pain 06/22/23 06/22/23 History Allergies Allergy/AdvReac Type Severity Reaction Status Date / Time lisinopril AdvReac Mild Cough Verified 07/24/24 11:28 promethazine AdvReac Mild Flushing Verified 07/24/24 11:28 Visit Medications Acetaminophen (Acetaminophen 325 Mg Tablet) 650 mg PO Q6H PRN PRN Reason: Fever >101.5 Stop: 08/23/24 12:39 Sodium Chloride (Ns) 1,000 mls @ 100 mls/hr IV Q10H NAVA Stop: 08/23/24 11:14 Last Admin: 07/24/24 12:02 Dose: 100 mls/hr Nicardipine/Sodium Chloride (Cardene Ivpb) 20 mg in 200 mls @ 50 mls/hr IV .Q4H PRN; Protocol PRN Reason: Per Nicardipine Stroke Protocol Stop: 08/23/24 11:40 Labetalol HCl (Labetalol Inj 5 Mg/Ml Vial 20 Ml) 10 mg IV Q15M PRN PRN Reason: HYPER Labetalol HCl (Labetalol Inj 5 Mg/Ml Vial 20 Ml) 10 mg IVP PRNMRX1 PRN PRN Reason: SBP > 185 mmHg and/or DBP > 110 Last Admin: 07/24/24 12:18 Dose: 10 mg Labetalol HCl (Labetalol Inj 5 Mg/Ml Vial 20 Ml) 10 mg IVP PRNMRX1 PRN PRN Reason: SBP > 180 mmHg or DBP > 105 Last Admin: 07/24/24 11:45 Dose: 10 mg Ondansetron HCl (Ondansetron Inj 2 Mg/Ml Inj 2 Ml) 4 mg IV Q4HR PRN PRN Reason: NAUSEA OR VOMITING Stop: 08/23/24 11:07 Last Admin: 07/24/24 12:17 Dose: 4 mg Discontinued Medications Acetaminophen (Acetaminophen 500 Mg Tablet) 1,000 mg PO X1 ONE Stop: 07/24/24 12:16 Last Admin: 07/24/24 12:17 Dose: 1,000 mg Morphine Sulfate (Morphine Sulf Inj 10 Mg/Ml Vial) 2 mg IVP X1 ONE Stop: 07/24/24 11:16 Tenecteplase (Tenecteplase Inj 50 Mg Vial) 23.8 mg 0.25 mg/kg (23.8 mg) IV X1 ONE Stop: 07/24/24 11:42 Last Admin: 07/24/24 11:50 Dose: 23.8 mg Assessment & Plan Plan 64 y/o M, with history of B-cell lymphoma on rituximab,HLD,HTN not on any meds,mod/sever , prior burst compressincame to the hospital with CC of abrupt onset vertigo, dizziness, left-sided heaviness and reduced fine motor control, dysarthria and ataxic gait, onset of symptoms at 10:00 AM while he was getting ready for work . NIHSS was 3 (mild dysarthria, mild LUE and LLE ataxia), gait also noted to be imbalanced/ataxic.He reports that his speech is slurred compared to normal .Head CT did not show hemorrhage, questionable early ischemic changes in right parietal region. CTA head/neck without LVO.IV Tenecteplase Total Dose ? 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 23.8 mg -NPO until swallowing screen performed and passed -No antiplatelet agents or anticoagulants (including heparin for DVT prophylaxis) in first 24 hours -No Watson catheter, nasogastric tube, arterial catheter or central venous catheter for 24 hr, unless absolutely necessary -HOB less than 30 degree -Euglycemia -Avoid hyperthermia, PRN acetaminophen -DVT prophylaxis- -Inpatient Neurology Consultation -Echo ordered -Follow up TSH -Follow up MRI -Monitor blood pressure every 15 minutes for 2 hours from the start of rtPA therapy, then every 30 minutes for 6 hours, and then every hour for 16 hours,If systolic blood pressure is >180 to 230 mmHg or diastolic is >105 to 120 mmHg,Labetalol 10 mg intravenously followed by continuous infusion 2 to 8 mg CVS # Moderate/severe aortic stenosis -Following Dr. Johns outpatient, planning to do TAVR -will follow up Echo # History of hypertension but not on any medication #HLD -Started on atorvastatin 80 HS RESPI Stable GI Stable INFECTIOUS Stable HEME/ONC # History of B-cell lymphoma on remission(on home rituximab) ENDO stable Disposition: Admitted to ICU status post tPA Diet and fluids: Cardiac diet DVT prophylaxis: SCD GI prophylaxis: None CODE STATUS: Full code Discussed the patient with my attending Dr Donald Mcneil MD,PGY-3 Attending Provider Attestation/Addendum Patient seen and examined with the above resident, Arlen Mcneil MD. I agree with the findings, assessment, and plan of care as documented except for any differences below. Patient with sudden onset of disorientation and left upper extremity weakness. CT head without bleeding. No known carotid disease but aortic stenosis being followed by OP cardiology. Patient selected for tPA administration. Plan for BP control, tolerate up to 180/100. Given single dose of labetalol with good effect. Patient with partial return of function but minor cerebellar symptoms which will be hard to denote on CT. Will await MRI in AM. Follow up CT to exclude bleeding or in case of neurologic change. Patient passed bedside swallow, will initiate diet. Patient and spouse updated on plan of care at bedside. Okay to stop fluids. Hold all labs until AM. Will need statin now. DAPT when deemed okay by neurology, likely after 24 hours. CTA did exclude LVO for need for additional therapy. Likely able to transfer to medicine in AM. Total critical care time: I personally spent 35 minutes for review of physiologic parameters, directing plan of care, coordination of care with other subspecialists, and counseling patient and spouse at bedside. This is exclusive of time spent teaching housestaff or performing any separate billable procedures. Patient continues to require critical care services for accelerated hypertension with ischemic CVA. He remains at risk for increased morbidity and mortality warranting ongoing care and monitoring only available in the intensive care unit.
--- NOTE | 2024-07-24 15:12 | PC.RT ---
pt refused abg
[2024-07-24 16:57] LABS: Amphetamine/Methamp Scrn,U Negative (Negative); Barbiturate Screen,Urine Negative (Negative); Benzodiazepines Screen,Urine Negative (Negative); Benzoylecgonine Screen, Ur Negative (Negative); Fentanyl Screen,Urine Negative (Negative); Opiate Screen,Urine Negative (Negative); THC Screen,Urine Negative (Negative)
--- NOTE | 2024-07-24 17:25 | XR_ITS ---
Examination: MRI brain without intravenous contrast. Date and time of exam: July 24, 2024 1818 hrs. Indications: Stroke alert today, onset focal neurologic deficit, slurred speech left-sided body weakness beginning 10:00 AM today Technique: Multiple axial and sagittal images of the brain obtained. Siemens high-resolution 1.5 Colette short bore scanners utilized. Sagittal sections, T1-weighted, TR 500, TE 14, are performed. Axial sections proton-density and T2-weighted have been obtained. Inversion recovery axial images, TR 9, 260, TE 111, TI 2500. Diffusion weighted images, axial sections, TR 4800, TE 128, B value 1000 Axial sections, ADC map, TR 4800, TE 128 Findings: Enlargement of the sella turcica is not present. The optic chiasm and infundibular are not remarkable. Prepontine and interpeduncular cisterns are not enlarged. There is no localized enlargement of the medulla or aiden. Fourth ventricle and cerebellar tonsils appear normal in position. No subacute area of hemorrhage density is seen. Mass in the cerebellopontine angle region is not evident. Globes symmetrical. Orbital musculature including medial lateral rectus muscles do not exhibit abnormality. Diffusion-weighted images demonstrate foci restricted diffusion in the left superior vermis, axial images 9 and 8 with signal deficit on the ADC map. Increased white matter signal moderate to significant Mass effect upon the ventricular system is not identified. Impression: Multiple small acute infarcts in the posterior fossa, left superior vermis
--- NOTE | 2024-07-24 18:17 | ESCONSULT_ITS ---
HPI Data of Consult Patient: known to practice within the last 3 years Consult date: 07/24/24 Requesting Physician: Mumtaz Bennett MD Admitting Provider: Mumtaz Bennett MD Attending Provider: Jorge Alberto Tanner MD Primary Care Provider: Hector Garcia MD Consult Narrative Reason for consult: Aortic Stenosis History of present illness: Mr. 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 emergency department from home on 07/24/2024 with a chief complaint of abrupt onset of dizziness, left-sided heaviness and reduced fine motor control, dysarthria and ataxic gait. Patient reported that his symptoms started earlier today when he was shaving, reported abrupt onset symptoms, light down on bed for a little while dizziness improved and he decided to come to ED for further evaluation. He did complain of dysarthria ataxic gait, left-sided heaviness and reduced fine motor control; reported slurring of speech as well. He currently denies any chest pain, shortness of breath, dizziness, syncope, paroxysmal nocturnal dyspnea and palpitations. He reports his dizziness has resolved. Patient follows outpatient with Dr. Tanner for moderate to severe aortic stenosis, reports that he gets an echocardiogram every 3 months, he does not meet criteria for TAVR currently. Patient also had elevated cholesterol and LDL on 05/30/2024 with cholesterol 221, LDL 150 HDL 49, last hemoglobin A1c from May 2024 is 5.1. ED Vitals: On presentation in ED blood pressure 186/101, heart rate 63, respiratory rate 16, temp 97.6, O2 sat 98 on room air ED Labs: Emergency department labs significant for WBC 6.8, RBC 5.22, hemoglobin 15.3, MCV 86, MCH 29.3, MCHC 34.2 platelets 139,000, chloride 111, potassium 4, magnesium 2.1, glucose 110, BUN 19, creatinine 1.2, GFR more than 60, globulin 2.2, albumin 4.5 BNP within normal limits, troponin negative urine tox screen negative, blood alcohol level negative ED Imaging:CT scan of head negative for acute hemorrhage mass effect or midline shift, subtle low-density in right parietal lobe suspicious for early acute infarct along right MCA, head and neck CTA negative for any large vessel occlusions and chest x-ray negative for lobar pneumonia or pulmonary edema. EKG in ED shows sinus rhythm, heart rate [address]-T changes ED Treatment:Patient was given labetalol 10 mg IVP x 1 and tenecteplase per stroke protocol in ED ED course:Stroke alert was called in ED was evaluated by teleneurologist, NIHSS score 3, premorbid modified [place] 0 points, patient had no thrombolytic contraindications and decision was made to manage patient with thrombolytic, was given tenecteplase as imaging showed no contraindications either cc:: cc: Mumtaz Bennett MD Review of Systems Review of Systems Narrative Review of Systems: ROS: -CONSTITUTIONAL: Denies weight loss, fever and chills. -HEENT: Denies changes in vision and hearing. -RESPIRATORY: Denies SOB and cough. -CV: Denies palpitations and Chest Pain. -GI: Denies abdominal pain, nausea, vomiting,constipation and diarrhea. -: Denies dysuria and urinary frequency. -MSK: Denies myalgia and joint pain. -SKIN: Denies rash and pruritus. -NEUROLOGICAL: Positive for dizziness, left-sided heaviness and reduced fine motor control, dysarthria and ataxic gait -PSYCHIATRIC: Denies recent changes in mood. Denies anxiety and depression. 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 Conversational and non-toxic appearing. HEENT: Normocephalic, atraumatic, mucous membranes moist. Heart: Regular rate and rhythm, aortic stenosis murmur+ in aortic area Lungs: Clear to auscultation with no wheezing or crackles. Abdomen: Soft, nondistended, nontender, positive bowel sounds. ?No guarding or rebound tenderness. Neurologic: Alert and oriented x3, no gross neurological deficit, and patient able to move all 4 extremities. Some slurring of speech noted. Extremities: No edema. Skin: No rash or ecchymoses. Results Labs 07/25/24 04:44 07/25/24 04:44 Labs: Short CBC 07/24/24 Range/Units 11:13 WBC 6.8 (3.8-10.6) Thou/mm3 Hgb 15.3 (13.5-16.0) g/dL Hct 44.7 (41.0-53.0) % Plt Count 139 L (140-440) Thou/mm3 BMP 07/24/24 11:13 Sodium 144 Potassium 4.0 Chloride 111 H Carbon Dioxide 25.3 BUN 19 Creatinine 1.2 Glucose 110 H Calcium 9.7 Cardiac Enzymes 07/24/24 Range/Units 11:13 Troponin I < 0.020 (0.0-0.045) ng/mL Liver Function 07/24/24 Range/Units 11:13 Total Bilirubin 0.7 (0.3-1.2) mg/dL AST 19 (0-34) U/L ALT 29 (10-49) U/L Alkaline Phosphatase 102 (46-116) U/L Albumin 4.5 (3.4-4.8) gm/dL Quality Measures Quality Measures none Advance care planning discussed with:: patient Medications Home Medications and Allergies Home Medications ?Medication ?Instructions ?Recorded ?Confirmed ?Type ibuprofen 800 mg tablet 800 mg PO Q8H PRN Pain 06/2206/22/23 History Allergies Allergy/AdvReac Type Severity Reaction Status Date / Time lisinopril AdvReac Mild Cough Verified 07/24/24 11:28 promethazine AdvReac Mild Flushing Verified 07/24/24 11:28 Visit Medications Acetaminophen (Acetaminophen 325 Mg Tablet) 650 mg PO Q6H PRN PRN Reason: Fever >101.5 Stop: 08/23/24 12:39 Atorvastatin Calcium (Atorvastatin Calcium 20 Mg Tablet) 80 mg PO HS NAVA Stop: 08/23/24 20:59 Nicardipine/Sodium Chloride (Cardene Ivpb) 20 mg in 200 mls @ 50 mls/hr IV .Q4H PRN; Protocol PRN Reason: Per Nicardipine Stroke Protocol Stop: 08/23/24 11:40 Labetalol HCl (Labetalol Inj 5 Mg/Ml Vial 20 Ml) 10 mg IV Q15M PRN PRN Reason: HYPER Labetalol HCl (Labetalol Inj 5 Mg/Ml Vial 20 Ml) 10 mg IVP PRNMRX1 PRN PRN Reason: SBP > 185 mmHg and/or DBP > 110 Last Admin: 07/24/24 12:18 Dose: 10 mg Labetalol HCl (Labetalol Inj 5 Mg/Ml Vial 20 Ml) 10 mg IVP PRNMRX1 PRN PRN Reason: SBP > 180 mmHg or DBP > 105 Last Admin: 07/24/24 11:45 Dose: 10 mg Ondansetron HCl (Ondansetron Inj 2 Mg/Ml Inj 2 Ml) 4 mg IV Q4HR PRN PRN Reason: NAUSEA OR VOMITING Stop: 08/23/24 11:07 Last Admin: 07/24/24 12:17 Dose: 4 mg Discontinued Medications Acetaminophen (Acetaminophen 500 Mg Tablet) 1,000 mg PO X1 ONE Stop: 07/24/24 12:16 Last Admin: 07/24/24 12:17 Dose: 1,000 mg Atorvastatin Calcium (Atorvastatin Calcium 20 Mg Tablet) 40 mg PO HS NAVA Stop: 08/23/24 20:59 Sodium Chloride (Ns) 1,000 mls @ 100 mls/hr IV Q10H NAVA Stop: 08/23/24 11:14 Last Admin: 07/24/24 12:02 Dose: 100 mls/hr Morphine Sulfate (Morphine Sulf Inj 10 Mg/Ml Vial) 2 mg IVP X1 ONE Stop: 07/24/24 11:16 Tenecteplase (Tenecteplase Inj 50 Mg Vial) 23.8 mg 0.25 mg/kg (23.8 mg) IV X1 ONE Stop: 07/24/24 11:42 Last Admin: 07/24/24 11:50 Dose: 23.8 mg Assessment & Plan Plan Assessment and plan: Summary: Mr. 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 emergency department from home on 07/24/2024 with a chief complaint of abrupt onset of dizziness, left- sided heaviness and reduced fine motor control, dysarthria and ataxic gait. Patient admitted to hospital for acute CVA status post TNK management. # Moderate to severe aortic stenosis Patient has history of moderate to severe aortic stenosis, follows cardiology outpatient, did not meet criteria for TAVR, is scheduled for echocardiogram every 3 months, compliant with follow-up follows closely. He denies any syncope/presyncopal episode, patient's current symptom likely secondary to CVA. He has murmur auscultated on physical exam. Echocardiogram from 05/04/2024 shows Moderate to severe AV stenosis, mean gradient 31mmHg, vmax 3.68m/s. DURAN is 0.8sq cm Normal LV size and function. Mild LVH. Estimated EF 60-65% Normal RV size and function. Trace MR, AI, TR. Plan: -Follow TTE with bubble study -Will consider JODIE if patient has stroke on MRI -Continue outpatient workup for close monitoring # Hyperlipidemia Had elevated cholesterol and LDL on 05/30/2024 with cholesterol 221, LDL 150 HDL 49, last hemoglobin A1c from May 2024 is 5.1. ASCVD 2013 risk calculator 12.7% risk of cardiovascular event in the next 10 years, recommended statin therapy, as patient has acute CVA high intensity statin recommended Recommendations: -Start high intensity statin therapy # Hypertension On presentation blood pressure 186/101, had acute CVA status post tenecteplase Labetalol IV as needed parameters SBP more than 180/diastolic blood pressure more than 105 # Acute cerebrovascular accident status post TNK Patient presented with abrupt onset of dizziness, left-sided heaviness reduced fine motor control dysarthria and ataxic gait CT scan of head negative for acute hemorrhage mass effect or midline shift, subtle low-density in right parietal lobe suspicious for early acute infarct along right MCA, head and neck CTA negative for any large vessel occlusions and chest x-ray negative for lobar pneumonia or pulmonary edema. EKG in ED showed sinus rhythm, heart rate [address]-T changes Recommendations: -Neurology following, management per primary team -Holter monitoring outpatient to rule out arrhythmias # Mantle cell lymphoma in remission Patient follows Dr Chen outpatient on rituximab Has history of pleurodesis, surgeries for necrotic lymph node removal. Case discussed with Attending Dr. Tanner. Silvia Rod PGY1 Disclaimer: This note was dictated by speech recognition. Minor errors in annealing oven operator may be present due to voice recognition software. Attending Provider Attestation/Addendum I have personally seen and examined the patient separately on the above date of service and discussed the plan of care with the resident. I reviewed the resident Dr. Silvia Rod consultation and agree with the resident findings and plan in the note above and have also edited the documentation to reflect my findings and plan. Patient well-known to me from the onset of his and he has moderate to severe aortic stenosis with last echocardiogram showing V-max of 3.7 m/s and a mean gradient of 32 mmHg and a valve area of 0.8 cm?. Patient also does have a history of mantle cell lymphoma in remission along with some hypertension and hyperlipidemia. Unfortunately patient presented with stroke like symptoms with dizziness, left-sided heaviness as well as and dysarthria, unstable gait. Patient received TNK CT head as well as CT head was negative at the present point of time. Patient admitted for stroke workup and MRI has been ordered. Echo was ordered with bubble study and if bubble study is positive or if the patient has multifocal infarcts in different lobes than patient will need a JODIE for further workup Will reevaluate aortic valve stenosis at the present point of time the unlikely it would be the cause of stroke. Patient is having regular echocardiograms every 3 months to evaluate his progression for the severe aortic stenosis If the patient fits all the criteria for severe aortic stenosis based on the new echo will start the patient for workup versus TAVR as outpatient. Blood pressure is mildly elevated at the present point of time and continue permissive hypertension given the presentation of stroke. After 24 hours patient should be started on afterload reduction with ARB's for high blood pressure. Continue statin for hyperlipidemia as well as present stroke. Neurology consulted and patient should be on antiplatelet given the stroke. Management of rest of the medical conditions as per primary team and other consultants. Thank you for the consult and allowing me to participate in the care of the patient. Cardiology will continue to follow. There is a high probability of sudden, clinically significant or life threatening deterioration in the patient condition which required the highest level of physician preparedness to intervene urgently. I have personally spent 65 minutes of critical care time, exclusive of time spent on any procedures, in evaluation and management of this critically ill patient. Jorge Alberto Tanner M.D. Interventional Cardiology
[2024-07-24] MEDS: ATORVASTATIN CALCIUM 20 MG TABLET 80 MG PO (21:17)
--- NOTE | 2024-07-24 22:35 | PD.NEUROPROG ---
Documentation for date of: 07/24/24 Subjective Subjective Interval history: Patient was seen in ICU today at the bedside while he was eating dinner. He stated that numbness, lack of coordination in the left upper extremity and gait steadiness are all improving after the tenecteplase. Denies any headache or dizziness any longer. Exam - Neurology Vital Signs Temp Pulse Resp BP Pulse Ox O2 Del Method 99.0 F 71 17 122/74 97 Room Air 07/24/24 20:01 07/24/24 21:00 07/24/24 21:00 07/24/24 21:00 07/24/24 21:00 07/24/24 16:00 Narrative Exam GENERAL APPEARANCE: Well hydrated, well-nourished in no acute distress. HEENT: Normocephalic, atraumatic, extraocular movements intact. Pupils: Equal reacting to light and accommodation NECK: Supple, no JVD or bruits. CARDIOVASULAR: Heart: S1, S2 heard, regular without S3-S4 or murmur no rubs or gallops. LUNGS/CHEST: Clear to auscultation bilaterally. No rails, rhonchi, or wheezing. Normal inspection. ABDOMEN: Soft, nontender, with normal bowel sounds. No pulsatile masses. No rebound, rigidity, or guarding. Normal inspection and palpation. EXTREMITIES: Normal inspection and palpation. No edema, clubbing or cyanosis. SKIN: Warm and dry without rashes. Normal inspection. MUSCULOSKELETAL: No cervical, thoracic, lumbar or midline bony tenderness. Normal inspection. NEURO: Alert, awake and oriented x3. Cranial nerves: II through XII grossly intact. Speech and language: Normal with no dysarthria or dysphasia. Motor system: Tone and bulk: Normal: Strength: 5 out of 5 in all 4 extremities; No pronator drift noted. Deep tendon reflexes: 2+ bilaterally symmetrical. Plantar reflex: Downgoing bilaterally. Sensory system: Intact to all modalities of sensation bilaterally. Coordination: Intact to phjjrt-[id number] and [id number] test bilaterally. No ataxia, no dysmetria, or dysdiadochokinesia noted. No intention tremors noted. Gait: Normal but walked with a wide-based gait to prevent imbalance. No signs of meningeal irritation noted. PSYCHIATRIC: Normal mood and affect. Objective Labs 07/25/24 04:44 07/25/24 04:44 Labs: Laboratory Results - last 24 hr 07/24/24 07/24/24 11:13 16:32 WBC 6.8 RBC 5.22 Hgb 15.3 Hct 44.7 MCV 86 MCH 29.3 MCHC 34.2 RDW Std Deviation 43.2 Plt Count 139 L Neut % (Auto) 73 Lymph % (Auto) 11 [place] % (Auto) 12 Eos % (Auto) 3 Baso % (Auto) 0 Neut # (Auto) 5.0 Lymph # (Auto) 0.8 L [place] # (Auto) 0.8 Eos # (Auto) 0.2 Baso # (Auto) 0.0 Immature Gran # (Auto) 0.03 H Absolute Nucleated RBC 0.00 Immature Gran % 0 Nucleated RBC % 0 PT 10.5 INR 1.0 APTT 22.8 Sodium 144 Potassium 4.0 Chloride 111 H Carbon Dioxide 25.3 Anion Gap 8 BUN 19 Creatinine 1.2 Estim Creat Clear Calc 66.3 eGFR > 60 BUN/Creatinine Ratio 16 Glucose 110 H Calculated Osmolality 290 Calcium 9.7 Corrected Calcium 9.7 Magnesium 2.1 Total Bilirubin 0.7 AST 19 ALT 29 Alkaline Phosphatase 102 Troponin I < 0.020 B-Natriuretic Peptide 40 Total Protein 6.7 Albumin 4.5 Globulin 2.2 L Albumin/Globulin Ratio 2.0 Urine Opiates Screen Negative Urine Fentanyl Screen Negative Ur Barbiturates Screen Negative U Amphetamin/Meth Scrn Negative U Benzodiazepines Scrn Negative U Cocaine Metab Screen Negative U Marijuana (THC) Screen Negative Ethyl Alcohol < 3.0 Assessment & Plan Assessment and plan (1) Acute CVA (cerebrovascular accident): Status: Acute Assessment and plan: Significant improvement noted after tenecteplase, close to baseline Neurological exam: Afocal other than minor gait ataxia MRI brain showed acute infarction in the posterior fossa and left cerebellar vermis Will start Plavix after 24 hours of tenecteplase along with statin. PT evaluation for ambulation safety to be sure. Add 81 mg of aspirin upon discharge to take for 21 days. (2) B-cell non-Hodgkin lymphoma: Status: Chronic Assessment and plan: Stable and is being monitored closely. (3) Aortic stenosis: Status: Chronic Assessment and plan: Followed by cardiology closely, needs aortic valve replacement sometime soon
[2024-07-25] VITALS (69 sets, daily range): BP systolic 109–153; BP diastolic 58–98; PULSE 54–70; RESP 7–97; TEMP 36.3–37.3; O2SAT 88–99; BMI 32.3
[2024-07-25 05:14] LABS: Basophils % (Auto) 1 % (0-2.5); Eosinophils # (Auto) 0.1 Thou/mm3 (0.0-0.5); Eosinophils % (Auto) 2 % (0-10); Hematocrit 40.6 % (41.0-53.0); Hemoglobin 13.8 g/dL (13.5-16.0); Immature Granulocytes % (Auto) 0 % (0-0); Immature Granulocytes Auto 0.02 Thou/mm3 (0.00-0.00); Lymphocytes # (Auto) 0.4 Thou/mm3 (1.0-4.8); Lymphocytes % (Auto) 7 % (10-50); Mean Corpuscular Hemoglobin 29.4 pg (25.0-35.0); Mean Corpuscular Volume 87 fL (80-100); Monocytes # (Auto) 0.7 Thou/mm3 (0.0-0.8); Monocytes % (Auto) 12 % (0-12); Neutrophils # (Auto) 4.9 Thou/mm3 (1.8-7.7); Neutrophils % (Auto) 78 % (37-80); Nucleated Red Blood Cell % 0 /100 WBC (0); Platelet Count 111 Thou/mm3 (140-440); RDW Standard Deviation 44.5 fL (35.1-43.9); Red Blood Count 4.69 Miln/mm3 (4.50-5.90); White Blood Count 6.3 Thou/mm3 (3.8-10.6)
[2024-07-25 06:24] LABS: Alanine Aminotransferase 21 U/L (10-49); Albumin/Globulin Ratio 2.1 (1.2-2.2); Alkaline Phosphatase 89 U/L (46-116); Anion Gap 8 (7-16); Aspartate Amino Transferase 11 U/L (0-34); BUN/Creatinine Ratio 14 Ratio (12-20); Bilirubin,Total 0.6 mg/dL (0.3-1.2); Blood Urea Nitrogen 18 mg/dL (9-23); Calcium 9.3 mg/dL (8.3-10.6); Calcium (Corrected) 9.3 mg/dL (8.5-10.1); Carbon Dioxide 26.3 mMol/L (20.0-31.0); Cardiac Risk Estimate 3.7 RATIO (4.0-6.7); Chloride 110 mMol/L (98-107); Cholesterol 170 mg/dL (132-200); Creatinine (Component) 1.3 mg/dL (0.6-1.3); Estimated Creatinine Clearance 60.3 mL/min (>60); Globulin 1.9 gm/dL (2.3-3.5); Glucose 106 mg/dL (74-106); HDL Cholesterol 46 mg/dL (40-60); LDL Cholesterol,Calculated 111 mg/dL (0-130); Osmolality,Calculated 288 (275-295); Phosphorous 3.4 mg/dL (2.4-5.1); Potassium 4.2 mMol/L (3.4-5.1); Sodium 144 mMol/L (136-145); Thyroid Stimulating Hormone 1.07 uIU/mL (0.55-4.78); Total Protein 5.9 gm/dL (5.7-8.2); Triglycerides 66 mg/dL (30-150); eGFR > 60 See Note
--- NOTE | 2024-07-25 08:49 | PD.RESPRO ---
Documentation for date of: 07/25/24 Subjective Subjective Interval history: Patient seen and examined today, reports significant improvement in symptoms complains of some residual fine motor changes in left extremity and mild dysarthria. Patient's MRI showed multiple acute infarcts in Posterior fossa, left. Firmness repeat CT head 24 hours after TNKase showed interval acute hemorrhage mass effect or midline shift. Patient will be scheduled for JODIE later today. Exam Vital Signs Temp Pulse Resp BP Pulse Ox O2 Del Method 99.2 F 60 18 145/85 H 97 Room Air 07/25/24 04:00 07/25/24 07:02 07/25/24 07:02 07/25/24 08:00 07/25/24 08:00 07/24/24 16:00 Narrative Exam Physical Exam General: Awake and in no acute distress. Conversational and non-toxic appearing. HEENT: Normocephalic, atraumatic, mucous membranes moist. Heart: Regular rate and rhythm, aortic stenosis murmur+ in aortic area Lungs: Clear to auscultation with no wheezing or crackles. Abdomen: Soft, nondistended, nontender, positive bowel sounds. ?No guarding or rebound tenderness. Neurologic: Alert and oriented x3, no gross neurological deficit, and patient able to move all 4 extremities. Extremities: No edema. Skin: No rash or ecchymoses. Objective Labs 07/25/24 04:44 07/25/24 04:44 Labs: Laboratory Results - last 24 hr 07/24/24 07/24/24 07/25/24 11:13 16:32 04:44 WBC 6.8 6.3 RBC 5.22 4.69 Hgb 15.3 13.8 Hct 44.7 40.6 L MCV 86 87 MCH 29.3 29.4 MCHC 34.2 34.0 RDW Std Deviation 43.2 44.5 H Plt Count 139 L 111 L D Neut % (Auto) 73 78 Lymph % (Auto) 11 7 L [place] % (Auto) 12 12 Eos % (Auto) 3 2 Baso % (Auto) 0 1 Neut # (Auto) 5.0 4.9 Lymph # (Auto) 0.8 L 0.4 L [place] # (Auto) 0.8 0.7 Eos # (Auto) 0.2 0.1 Baso # (Auto) 0.0 0.0 Immature Gran # (Auto) 0.03 H 0.02 H Absolute Nucleated RBC 0.00 0.00 Immature Gran % 0 0 Nucleated RBC % 0 0 PT 10.5 INR 1.0 APTT 22.8 Sodium 144 144 Potassium 4.0 4.2 Chloride 111 H 110 H Carbon Dioxide 25.3 26.3 Anion Gap 8 8 BUN 19 18 Creatinine 1.2 1.3 Estim Creat Clear Calc 66.3 60.3 L eGFR > 60 > 60 BUN/Creatinine Ratio 16 14 Glucose 110 H 106 Calculated Osmolality 290 288 Calcium 9.7 9.3 Corrected Calcium 9.7 9.3 Phosphorus 3.4 Magnesium 2.1 2.0 Total Bilirubin 0.7 0.6 AST 19 11 ALT 29 21 Alkaline Phosphatase 102 89 Troponin I < 0.020 B-Natriuretic Peptide 40 Total Protein 6.7 5.9 Albumin 4.5 4.0 D Globulin 2.2 L 1.9 L Albumin/Globulin Ratio 2.0 2.1 Triglycerides 66 Cholesterol 170 LDL Cholesterol, Calc 111 HDL Cholesterol 46 Cholesterol/HDL Ratio 3.7 L TSH 1.07 Urine Opiates Screen Negative Urine Fentanyl Screen Negative Ur Barbiturates Screen Negative U Amphetamin/Meth Scrn Negative U Benzodiazepines Scrn Negative U Cocaine Metab Screen Negative U Marijuana (THC) Screen Negative Ethyl Alcohol < 3.0 Quality Measures Quality Measures none Advance care planning discussed with:: patient and spouse Assessment & Plan Assessment Current Active Medications: Generic Name Dose Route Start Last Admin Trade Name Freq PRN Reason Stop Dose Admin Acetaminophen 650 mg 07/24/24 12:40 Acetaminophen 325 Mg Tablet PO 08/23/24 12:39 Q6H PRN Fever >101.5 Atorvastatin Calcium 40 mg 07/25/24 21:00 Atorvastatin Calcium 20 Mg Tablet PO 08/24/24 20:59 HS NAVA Nicardipine/Sodium Chloride 20 mg in 200 mls @ 50 mls/hr 07/24/24 11:41 Cardene Ivpb IV 08/23/24 11:40 .Q4H PRN Per Nicardipine Stroke Protocol Protocol 5 MG/HR Labetalol HCl 10 mg 07/24/24 11:08 Labetalol Inj 5 Mg/Ml Vial 20 Ml IV Q15M PRN HYPER Labetalol HCl 10 mg 07/24/24 11:41 07/24/24 12:18 Labetalol Inj 5 Mg/Ml Vial 20 Ml IVP 10 mg [id number] PRN Administration SBP > 185 mmHg and/or DBP > 110 Labetalol HCl 10 mg 07/24/24 11:41 07/24/24 11:45 Labetalol Inj 5 Mg/Ml Vial 20 Ml IVP 10 mg [id number] PRN Administration SBP > 180 mmHg or DBP > 105 Ondansetron HCl 4 mg 07/24/24 11:08 07/24/24 12:17 Ondansetron Inj 2 Mg/Ml Inj 2 Ml IV 08/23/24 11:07 4 mg Q4HR PRN Administration NAUSEA OR VOMITING Plan Summary: Mr. Alvarez is a 64-year-old male with past medical history of mantle cell lymphoma on rituximab, pleurodesis, hyperlipidemia and moderate to severe aortic stenosis who presented to [facility] emergency department from home on 07/24/2024 with a chief complaint of abrupt onset of dizziness, left-sided heaviness and reduced fine motor control, dysarthria and ataxic gait. Patient admitted to hospital for acute CVA status post TNK management. # Moderate to severe aortic stenosis Patient has history of moderate to severe aortic stenosis, follows cardiology outpatient, did not meet criteria for TAVR, is scheduled for echocardiogram every 3 months, compliant with follow-up follows closely. He denies any syncope/presyncopal episode, patient's current symptom likely secondary to CVA. He has murmur auscultated on physical exam. Echocardiogram from 05/04/2024 shows Moderate to severe AV stenosis, mean gradient 31mmHg, vmax 3.68m/s. DURAN is 0.8sq cm Normal LV size and function. Mild LVH. Estimated EF 60-65% Normal RV size and function. Trace MR, AI, TR. Patient denies any kind of swallowing problems or any kind of esophageal interventions or previous surgeries. Patient denies any kind of gastric ulcers bleeding and any other hematemesis or hematochezia. Patient denies any issues with anesthesia previously. Patient explained all the risks, benefits and alternatives of JODIE including the risk of perforation, bleeding, respiratory failure secondary to sedation, injury to teeth gums esophagus and stomach. Patient understands all risks and benefits and provided consent for the procedure. We will keep him n.p.o. overnight and plan for JODIE in the morning. Plan: -NPO currently, scheduled for JODIE -Follow TTE with bubble study -Follow JODIE with bubble study -Will consider outpatient TAVR workup if JODIE shows significant aortic stenosis -Continue outpatient workup for close monitoring # Hyperlipidemia Had elevated cholesterol and LDL on 05/30/2024 with cholesterol 221, LDL 150 HDL 49, last hemoglobin A1c from May 2024 is 5.1. ASCVD 2013 risk calculator 12.7% risk of cardiovascular event in the next 10 years, recommended statin therapy, as patient has acute CVA high intensity statin recommended Recommendations: -Continue atorvastatin 40 mg at bedtime # Hypertension On presentation blood pressure 186/101, had acute CVA status post tenecteplase Blood pressure continues to remain elevated, 132/85, will benefit from antihypertensive therapy. Recommendation: Consider starting patient on losartan for afterload reduction # Acute cerebrovascular accident status post TNK # Multiple small acute infarcts posterior fossa, left superior vermis Patient presented with abrupt onset of dizziness, left-sided heaviness reduced fine motor control dysarthria and ataxic gait CT scan of head negative for acute hemorrhage mass effect or midline shift, subtle low-density in right parietal lobe suspicious for early acute infarct along right MCA, head and neck CTA negative for any large vessel occlusions and chest x-ray negative for lobar pneumonia or pulmonary edema. EKG in ED showed sinus rhythm, heart rate [address]-T changes MRI shows multiple small infarcts posterior fossa, left piriformis Recommendations: -Neurology following, management per primary team -Holter monitoring outpatient to rule out arrhythmias -Patient is on Plavix p.o. currently, neurology recommends discharging patient on aspirin Plavix for 21 days. # Mantle cell lymphoma in remission Patient follows Dr Chen outpatient on rituximab Has history of pleurodesis, surgeries for necrotic lymph node removal. Case discussed with Attending Dr. Tanner. Silvia Rod PGY1 Disclaimer: This note was dictated by speech recognition. Minor errors in quenching car operator may be present due to voice recognition software. Attending Provider Attestation/Addendum I have personally seen and examined the patient separately on the above date of service and discussed the plan of care with the resident. I reviewed the resident Dr. Silvia Rod consultation progress note and agree with the resident findings and plan in the note above and have also edited the documentation to reflect my findings and plan. Jorge Alberto Tanner M.D. Interventional Cardiology
--- NOTE | 2024-07-25 12:00 | XR_ITS ---
Examination: CT brain head without contrast. 2-D sagittal coronal reconstructions Date and time of exam:July 25, 2024 1236 hours INDICATIONS: Stroke alert July 24, 2024, onset focal neurologic deficit, slurred speech, left-sided body weakness, post thrombolytic therapy CTDI: vol (mGy):52.6 DLP: (mGycm):1131 Technique: Multiple CT axial sections of the brain have been obtained, 5 mm slice thickness. Contrast has not been administered. 2-D sagittal, coronal reconstructions have been obtained Low dose protocols were performed. One or more of the following dose reduction techniques were used; automated exposure control, adjustment of the mA and/or KV according to patient size, use of iterative reconstruction technique. Findings: No significant ventricular enlargement. Old infarct left cerebellar hemisphere Intra-axial or extra-axial hemorrhage density is not seen. No mass effect or midline shift Basal cisterns are not remarkable. Fourth ventricle is midline. Cranial vault intact. Impression: No interval acute hemorrhage, mass effect or midline shift
[2024-07-25 12:30] LABS: Glucose Estimated Average 100 mg/dL (80-131); Hemoglobin A1C 5.1 % Hgb (4.8-6.0)
--- NOTE | 2024-07-25 13:30 | PC.PT ---
PT eval only. Patient is I with transfers and ambulation without AD.
--- NOTE | 2024-07-25 13:46 | PC.SS ---
Patient's spouse provided patient's POA medical and Living Will. Copy scanned into patient's EMR. Hard copy placed in the patient's physical chart. Bedside nurse updated.
--- NOTE | 2024-07-25 13:48 | PC.SS ---
Patient to be downgraded to Tele today.
--- NOTE | 2024-07-25 13:57 | ECHO_ITS ---
Transesophageal Echo Report Ht (in): 66 Wt (lb): 201 Exam Location: Portable Status: Inpatient Mandarin Tutor: ANGELIQUE Martínez^^^^ Indications: Procedure Performed: BP: 163 / 88 HR: 77 Rhythm: Sinus Technical Quality: Excellent MEASUREMENTS 2D ECHO Aortic Root Diameter 3.8 cm DOPPLER AV Peak Velocity 319.8 cm/s AV Peak Gradient 40.9 mmHg AV Mean Gradient 40.7 mmHg AV Velocity Time Integral 104.3 cm (Male / Female) Normal Values FINDINGS Left Ventricle Normal left ventricular size, wall thickness, systolic function with no obvious regional wall motion abnormalities.. The ejection fraction is visually estimated at 55-60 %. Right Ventricle The right ventricle is normal in size and systolic function. The estimated right ventricular systolic pressure, 25 mmHg. Left Atrium The left atrium is normal by two-dimensional, color flow and Doppler imaging with no structural abnormalities, no thrombus formation present. Right Atrium The right atrium is normal by two-dimensional imaging, color flow and Doppler imaging with no structural abnormalities, no thrombus formation present. Atrial Appendages The left atrial appendage appears normal with no evidence for thrombus. Atrial Septum The interatrial septum is normal to color flow Doppler and agitated saline imaging. Aorta The aorta is normal by two-dimensional, color flow and Doppler interrogation. Mitral Valve Mild mitral regurgitation. Aortic Valve Severe aortic valve stenosis, mean gradient 40.7 mmHg. Mild aortic valve regurgitation. Tricuspid Valve There is mild tricuspid valve regurgitation. Pulmonic Valve The pulmonic valve is normal by two-dimensional, color flow and Doppler interrogation. There is no significant pulmonic valve regurgitation. Vessels The pulmonary artery appears normal. The inferior vena cava pulmonary and hepatic veins appear normal. Pericardium The pericardium is normal by two-dimensional imaging. There is no significant pericardial effusion. CONCLUSIONS Indication: Stroke No evidence of any PFO or ASD. There was no LA or FANNIE thrombus. Severe aortic stenosis noted with a V-max of 4 m/s, mean PG of 39 mmHg and a peak PG of 65 mmHg. DURAN 0.8 cm?. Possible bicuspid P1 versus bicuspid valve with fused normal right cusps. Moderate to severe calcification of aortic valve. Normal LV size and function with an EF of around 55 to 60%. Normal RV size and function. Trace TR and mild MR. No pericardial effusion. Minumal atheromatous plaque noted in the arch of aorta and descending aorta. Jorge Alberto Anumandla (Electronically Signed) Final Date: 25 July 2024 23:19
--- NOTE | 2024-07-25 14:27 | PC.SS ---
SERVICE DESK ASSOCIATE conducted bedside contact with the patient conduct initial assessment and to discuss discharge planning.? Patient confirmed demographic information. ?Patient resides at home with spouse, Landy Junior .? Patient is currently employed.? Patient does not utilize any form of DME to assist with ambulation.? Patient does not utilize home oxygen.? Patient describes the ability to complete ADL?s independently.? Patient?s medical surrogate decision maker is spouse, Landy Junior.? Patient?s PCP is Dr. Garcia.? Patient does not participate with dialysis.? Patient?s oncologist is Dr. Chen.? Plan is for the patient to return home at the time of discharge.? Family will provide transportation on behalf of the patient. No discharge needs identified by the patient.? No further intervention required at this time, medical social consultant will be available to address any further concerns.? Next of Kin: Landy Junior D/C Plan: Home
[2024-07-25] MEDS: fentaNYL CIT INJ 50 mCg/ML AMP 2ML 150 MCG IVP (14:43)
[2024-07-25] MEDS: MIDAZOLAM INJ 1 MG/ML VIAL 2 ML 6 MG IV (14:43)
[2024-07-25] MEDS: BENZOCAINE 20% (Hurricaine) SPRAY 1 DOSE TOP (14:46)
--- NOTE | 2024-07-25 15:44 | ESPR_ITS ---
Documentation for date of: 07/25/24 Subjective Subjective Interval history: Patient seen and examined at bedside. He is a 64-year-old male with a past medical history of B-cell lymphoma, moderate/severe aortic stenosis, hyperlipidemia and hypertension who presented to the ED on 07/24/2024 with left-sided heaviness, dysarthria and ataxic gait. Head CTA showed some suspicion for acute infarcts of the right MCA and the patient got TNK per protocol. Admitted to the ICU for monitoring status post TNK. No acute overnight events. Patient reports doing better, has no complaints and most of the symptoms are resolved completely. MRI was done which showed multiple small acute infarcts in the posterior fossa and left superior vermis. Evaluated by neurology, recommends to start Plavix and statin, 24 hours after TNKase given. Repeat head CT per protocol. Echocardiogram with bubble study done, pending results, however cardiology performed a JODIE, no PFO but bicuspid aortic valve. Patient is stable to be downgraded to floors for further management and discharge planning. Exam Vital Signs Temp Pulse Resp BP Pulse Ox O2 Del Method 97.4 F 64 17 132/85 H 97 Room Air 07/25/24 12:00 07/25/24 13:30 07/25/24 12:00 07/25/24 12:00 07/25/24 13:30 07/25/24 12:00 Narrative Exam GENERAL: AAOX3 NEURO: GEOTECHNICAL ENGINEER grossly intact, moves extremities x4. Strength preserved in bilateral upper and lower extremities-5/5, no loss of sensation, no nystagmus, no intention tremor. HEENT: Moist mucosa. Eyes open, symmetrical, & clear CARDIO: No chest pain on palpation. Systolic ejection murmur in 2nd ICS PULM: No noted coughing/dyspnea. Lungs CTA B/L GI: Abdomen soft, nondistended, no pain on palpation. BSx4 URO/FLOORING MACHINE OPERATOR:: No further abnormalities noted. SKIN/MSK/EXT: No wounds/rashes/edema/amputations, no pain on palpation. Pedal pulses present B/L Objective Labs 07/26/24 05:10 07/26/24 05:10 Labs: Laboratory Results - last 24 hr 07/24/24 07/25/24 16:32 04:44 WBC 6.3 RBC 4.69 Hgb 13.8 Hct 40.6 L MCV 87 MCH 29.4 MCHC 34.0 RDW Std Deviation 44.5 H Plt Count 111 L D Neut % (Auto) 78 Lymph % (Auto) 7 L Brewster % (Auto) 12 Eos % (Auto) 2 Baso % (Auto) 1 Neut # (Auto) 4.9 Lymph # (Auto) 0.4 L [place]ster # (Auto) 0.7 Eos # (Auto) 0.1 Baso # (Auto) 0.0 Immature Gran # (Auto) 0.02 H Absolute Nucleated RBC 0.00 Immature Gran % 0 Nucleated RBC % 0 Sodium 144 Potassium 4.2 Chloride 110 H Carbon Dioxide 26.3 Anion Gap 8 BUN 18 Creatinine 1.3 Estim Creat Clear Calc 60.3 L eGFR > 60 BUN/Creatinine Ratio [address] Glu mg/dL 100 Hemoglobin A1c 5.1 Calculated Osmolality 288 Calcium 9.3 Corrected Calcium 9.3 Phosphorus 3.4 Magnesium 2.0 Total Bilirubin 0.6 AST 11 ALT 21 Alkaline Phosphatase 89 Total Protein 5.9 Albumin 4.0 D Globulin 1.9 L Albumin/Globulin Ratio 2.1 Triglycerides 66 Cholesterol 170 LDL Cholesterol, Calc 111 HDL Cholesterol 46 Cholesterol/HDL Ratio 3.7 L TSH 1.07 Urine Opiates Screen Negative Urine Fentanyl Screen Negative Ur Barbiturates Screen Negative U Amphetamin/Meth Scrn Negative U Benzodiazepines Scrn Negative U Cocaine Metab Screen Negative U Marijuana (THC) Screen Negative Quality Measures Quality Measures none Advance care planning discussed with:: other Assessment & Plan Assessment Current Active Medications: Generic Name Dose Route Start Last Admin Trade Name Freq PRN Reason Stop Dose Admin Acetaminophen 650 mg 07/24/24 12:40 Acetaminophen 325 Mg Tablet PO 08/23/24 12:39 Q6H PRN Fever >101.5 Atorvastatin Calcium 40 mg 07/25/24 21:00 Atorvastatin Calcium 20 Mg Tablet PO 08/24/24 20:59 HS NAVA Clopidogrel Bisulfate 75 mg 07/25/24 12:30 Clopidogrel Bisulfate 75 Mg Tablet PO 08/24/24 12:29 QDAY NAVA Labetalol HCl 10 mg 07/24/24 11:41 07/24/24 11:45 Labetalol Inj 5 Mg/Ml Vial 20 Ml IVP 10 mg [id number] PRN Administration SBP > 180 mmHg or DBP > 105 Ondansetron HCl 4 mg 07/24/24 11:08 07/24/24 12:17 Ondansetron Inj 2 Mg/Ml Inj 2 Ml IV 08/23/24 11:07 4 mg Q4HR PRN Administration NAUSEA OR VOMITING Plan Summary: The patient is a 64-year-old male with a past medical history of B- cell lymphoma, moderate/severe aortic stenosis, hyperlipidemia and hypertension who presented to the ED on 07/24/2024 with left-sided heaviness, dysarthria and ataxic gait. Neuro #Acute CVA The patient presented after a couple hours history of abrupt onset vertigo, dizziness, left-sided heaviness and dysarthria with ataxic gait. He reports his symptoms started at about 10 AM. Teleneuro was consulted and stroke protocol initiated in the ED, NIHSS was [address] was negative. As the patient was still in the window, he received TNK and was admitted to the ICU for close monitoring status post TNK. MRI showed multiple small acute infarcts in the posterior fossa and superior vermis. Lipid panel, LDL-111, TSH normal, A1c 5.1 Evaluated by neurology, recommends to start Plavix and statin 24 hours after TNK, physical therapy and to add aspirin upon discharge. Cardiology performed a JODIE procedure, no PFO, shows bicuspid aortic valve. Physical therapy evaluated, no further interventions needed Plan: -Clopidogrel 75 mg -Atorvastatin 40 mg at bedtime -Echocardiogram ordered, pending results -Pending repeat head CT status post TNK -Add aspirin 81 mg upon discharge Cardiovascular #Moderate/severe aortic stenosis The patient has a history of aortic stenosis and is being followed by extruder operator horizontal Dr. Tanner. Transthoracic echocardiogram pending with a JODIE was done which showed a bicuspid aortic valve with calcifications. Plan: -Cardiology consulted, pressure recommendations -Continue outpatient follow-up #History of hypertension Patient has a history of hypertension but is not on any medications. Blood pressure in the ICU with in the 140s to 150s. Will hold off on antihypertensives for now. #Hyperlipidemia Lipid panel done on this admission, LDL-111 Plan: -Atorvastatin 40 mg at bedtime Health maintenance: Dispo: Downgraded to telemetry Diet: Cardiac DVT: SCDs Watson: None Lines: Peripheral PT: Ordered, completed Code: Full Case was discussed with attending physician, Dr Donald Conti MD PGY-1 Disclaimer: This note was dictated by speech recognition. Minor errors in world travel counselor may be present due to voice recognition software. Attending Provider Attestation/Addendum Patient seen and examined with above resident, Ismael Conti MD. I agree with the findings, assessment, and plan of care as documented except for any differences below. Patient continues to show neurologic improvement. Will complete follow-up imaging as per protocol. Start on aspirin and plavix at the discretion of neurology. Patient will continue to require statin given history of hyperlipidemia as well as cerebrovascular accident. Patient was ambulated by physical therapy and showed no focal deficits with continued improvement in his ataxic gait. MRI imaging confirmed presence of posterior circulation infarct affecting the cerebellum. Patient with significant history of aortic stenosis and cardiology has been following the patient and agreed to perform JODIE while the patient is in the intensive care unit today. Procedure went uneventful with significant likely fusing of cusps versus bicuspid valve of the aortic valve with future need for TAVR anticipated. He will need to complete workup as an outpatient to coordinate this at outside facility. Patient and updated on plan of care. Transition to medicine later today after he recovers from sedation for procedure. Total critical care time: I personally spent 35 minutes for review of physiologic parameters, directing plan of care throughout the day, coordination of care with other subspecialties, and counseling patient and family at bedside. This is exclusive of time spent teaching housestaff or performing separate billable procedures. Patient continues to require critical care services for acute ischemic CVA. Patient remains at risk for further morbidity and mortality warranting close monitoring and care only available in the intensive care unit.
--- NOTE | 2024-07-25 16:30 | ECHO_ITS ---
Transthoracic Echo Report Ht (in): 66 Wt (lb): 201 Exam Location: [facility] Status: Inpatient [employer] Officer: ANGELIQUE Martínez^^^^ Indications: Procedure Performed: BP: 109 / 58 HR: 63 Rhythm: Sinus Technical Quality: Good MEASUREMENTS (Male / Female) Normal Values 2D ECHO LV Diastolic Diameter PLAX 5.3 cm 4.2 - 5.9 / 3.9 - 5.3 cm LV Systolic Diameter PLAX 3.7 cm IVS Diastolic Thickness 1.0 cm 0.6 - 1.0 / 0.6 - 0.9 cm LVPW Diastolic Thickness 1.3 cm 0.6 - 1.0 / 0.6 - 0.9 cm LV Relative Wall Thickness 0.4 LVOT Diameter 1.8 cm Aortic Root Diameter 3.1 cm LA Systolic Diameter LX 3.3 cm 3.0 - 4.0 / 2.7 - 3.8 cm LV Ejection Fraction MOD BP 69.9 % >= 55 % LV Cardiac Index MOD BP 2757.4 cm?/min?m? LV Ejection Fraction MOD 4C 63.3 % LV Cardiac Index MOD 4C 3353.5 cm?/min?m? LV Ejection Fraction 4C AL 63.9 % LV Cardiac Index 4C AL 3467.5 cm?/min?m? LV Ejection Fraction MOD 2C 69.4 % LV Cardiac Index MOD 2C 1779.1 cm?/min?m? LV Ejection Fraction 2C AL 72.8 % LV Cardiac Index 2C AL 1894.0 cm?/min?m? LA Volume Index 24.1 cm?/m? 16 - 28 cm?/m? Ascending Aorta Diameter 3.2 cm DOPPLER AV Peak Velocity 384.8 cm/s AV Peak Gradient 59.2 mmHg AV Mean Gradient 40.5 mmHg AV Velocity Time Integral 102.9 cm LVOT Peak Velocity 79.8 cm/s LVOT Peak Gradient 2.5 mmHg LVOT Velocity Time Integral 22.2 cm LVOT Cardiac Index 1700.6 cm?/min?m? AV Area Cont Eq vti 0.5 cm? AV Area Cont Eq pk 0.5 cm? MV Area PHT 4.1 cm? MR Peak Velocity 301.0 cm/s MR Peak Gradient 36.2 mmHg Mitral E Point Velocity 70.8 cm/s Mitral A Point Velocity 70.1 cm/s Mitral E to A Ratio 1.0 LV E' Lateral Velocity 6.0 cm/s Mitral E to LV E' Lateral Ratio 11.9 LV E' Septal Velocity 8.4 cm/s Mitral E to LV E' Septal Ratio 8.5 TR Peak Velocity 224.0 cm/s TR Peak Gradient 20.1 mmHg PV Peak Velocity 74.6 cm/s PV Peak Gradient 2.2 mmHg RVOT Peak Velocity 44.7 cm/s FINDINGS Left Ventricle Normal left ventricular size, wall thickness, systolic function with no obvious regional wall motion abnormalities. There is grade II diastolic dysfunction of the left ventricle (pseudonormal filling pattern). The left ventricular ejection fraction is normal, estimated at 55-60%. Right Ventricle The right ventricle is normal in size and systolic function. The estimated right ventricular systolic pressure, 25 mmHg. Left Atrium The left atrium is normal by two-dimensional, color flow and Doppler imaging with no structural abnormalities, no thrombus formation present. Right Atrium The right atrium is normal by two-dimensional imaging, color flow and Doppler imaging with no structural abnormalities, no thrombus formation present. Atrial Septum The interatrial septum is normal to color flow Doppler and agitated saline imaging. Aorta The aorta is normal by two-dimensional, color flow and Doppler interrogation. Mitral Valve Mild mitral regurgitation. Mild mitral annular calcification. Aortic Valve Severe aortic valve stenosis, mean gradient 40.5 mmHg, DURAN 0.55 cm?. Severe thickening of the aortic valve leaflets. Diffuse calcification of the aortic valve. Tricuspid Valve There is mild tricuspid valve regurgitation. Pulmonic Valve Trivial pulmonic valve regurgitation. Vessels The pulmonary artery appears normal. The inferior vena cava pulmonary and hepatic veins appear normal. Pericardium The pericardium is normal by two-dimensional imaging. There is no significant pericardial effusion. CONCLUSIONS Indication: Stroke with bubble study Bubble study negative for any PFO or ASD. Consider JODIE if high index of clinical suspicion. Normal LV size and function with an EF of 55 to 60%. Mild LVH. Grade 2 diastolic dysfunction. Normal RV size and function. Normal RVSP of 25 mmHg. Mild MR with mild MAC. Mild TR. Moderate to severe calcification of the aortic valve. Severe aortic stenosis with a V-max of around 3.9-4 m/s. Mean PG of 44 mmHg. Max PG of 8 mmHg. DURAN 0.8 cm? Jorge Alberto Gibbonsumannaeem (Electronically Signed) Final Date: 25 July 2024 23:23
[2024-07-25] MEDS: CLOPIDOGREL BISULFATE 75 MG TABLET PO (17:34)
--- NOTE | 2024-07-25 17:51 | PD.RESPRO ---
Documentation for date of: 07/25/24 Subjective Subjective Interval history: A 64-year-old male with past medical history of hypertension, hyperlipidemia, aortic stenosis, mantle cell lymphoma who presented to the ED on 07/24/2024 with left-sided heaviness, dysarthria and ataxic gait. Head CTA showed suspicion for acute infarcts of the right MCA and the patient got TNK per protocol. Admitted to the ICU for monitoring status post TNK. Patient was seen and examined at the bedside. Still complaining of mild difficulty and feeling rigidity while walking. Worked with the physical therapy. Dr. Tanner was consulted for JODIE in view of microvascular infarcts noted on MRI. JODIE was done and as the patient is clinically stable, downgraded to floors for further management. Vitals are stable. Labs showed mild thrombocytopenia Will monitor patient's clinical condition for tonight and planning for discharge tomorrow. Exam Vital Signs Temp Pulse Resp BP Pulse Ox O2 Del Method 97.4 F 64 17 132/85 H 97 Room Air 07/25/24 12:00 07/25/24 13:30 07/25/24 12:00 07/25/24 12:00 07/25/24 13:30 07/25/24 12:00 Narrative Exam General: Awake. HEENT: Normocephalic, atraumatic, mucous membranes moist. Heart: Regular rate and rhythm. Ejection systolic murmur best heard at pulmonary area Lungs: Clear to auscultation with no wheezing or crackles. Abdomen: Soft, nondistended, nontender, positive bowel sounds. ?No guarding or rebound tenderness. Neurologic: Alert and oriented x3 and patient able to move all 4 extremities. Extremities: No edema. Skin: No rash or ecchymoses. Objective Labs 07/26/24 05:10 07/26/24 05:10 Labs: Laboratory Results - last 24 hr 07/25/24 04:44 WBC 6.3 RBC 4.69 Hgb 13.8 Hct 40.6 L MCV 87 MCH 29.4 MCHC 34.0 RDW Std Deviation 44.5 H Plt Count 111 L D Neut % (Auto) 78 Lymph % (Auto) 7 L Conway % (Auto) 12 Eos % (Auto) 2 Baso % (Auto) 1 Neut # (Auto) 4.9 Lymph # (Auto) 0.4 L [place] # (Auto) 0.7 Eos # (Auto) 0.1 Baso # (Auto) 0.0 Immature Gran # (Auto) 0.02 H Absolute Nucleated RBC 0.00 Immature Gran % 0 Nucleated RBC % 0 Sodium 144 Potassium 4.2 Chloride 110 H Carbon Dioxide 26.3 Anion Gap 8 BUN 18 Creatinine 1.3 Estim Creat Clear Calc 60.3 L eGFR > 60 BUN/Creatinine Ratio [address] Glu mg/dL 100 Hemoglobin A1c 5.1 Calculated Osmolality 288 Calcium 9.3 Corrected Calcium 9.3 Phosphorus 3.4 Magnesium 2.0 Total Bilirubin 0.6 AST 11 ALT 21 Alkaline Phosphatase 89 Total Protein 5.9 Albumin 4.0 D Globulin 1.9 L Albumin/Globulin Ratio 2.1 Triglycerides 66 Cholesterol 170 LDL Cholesterol, Calc 111 HDL Cholesterol 46 Cholesterol/HDL Ratio 3.7 L TSH 1.07 Quality Measures Quality Measures none Advance care planning discussed with:: patient Assessment & Plan Assessment Current Active Medications: Generic Name Dose Route Start Last Admin Trade Name Freq PRN Reason Stop Dose Admin Acetaminophen 650 mg 07/24/24 12:40 Acetaminophen 325 Mg Tablet PO 08/23/24 12:39 Q6H PRN Fever >101.5 Atorvastatin Calcium 40 mg 07/25/24 21:00 Atorvastatin Calcium 20 Mg Tablet PO 08/24/24 20:59 HS NAVA Clopidogrel Bisulfate 75 mg 07/25/24 12:30 07/25/24 17:34 Clopidogrel Bisulfate 75 Mg Tablet PO 08/24/24 12:29 75 mg QDAY NAVA Administration Labetalol HCl 10 mg 07/24/24 11:41 07/24/24 11:45 Labetalol Inj 5 Mg/Ml Vial 20 Ml IVP 10 mg PRNMRX1 PRN Administration SBP > 180 mmHg or DBP > 105 Ondansetron HCl 4 mg 07/24/24 11:08 07/24/24 12:17 Ondansetron Inj 2 Mg/Ml Inj 2 Ml IV 08/23/24 11:07 4 mg Q4HR PRN Administration NAUSEA OR VOMITING Plan A 64-year-old male with past medical history of hypertension, hyperlipidemia, aortic stenosis, mantle cell lymphoma who presented to the ED on 07/24/2024 with left-sided heaviness, dysarthria and ataxic gait. Head CTA showed suspicion for acute infarcts of the right MCA and the patient got TNK per protocol. Admitted to the ICU for monitoring status post TNK. #Acute CVA -patient presented to the ED with history of sudden onset dizziness, left-sided heaviness, dysarthria and difficulty in gait -All the symptoms started at 10 AM and patient presented to the hospital within 1 hour -Teleneuro was consulted and stroke protocol was initiated -NIHSS score was [address] was negative -Patient was given TNK and admitted in the ICU for further monitoring -MRI brain showed multiple small acute infarcts in the posterior fossa and superior vermis -Patient underwent JODIE procedure, no PFO, shows bicuspid aortic valve. -Physical therapy evaluated, no further interventions needed Plan: -Dr. Sin is following up with the patient -Clopidogrel 75 mg -Atorvastatin 40 mg at bedtime -Echocardiogram ordered, pending results -Repeat head CT status post TNK -negative for hemorrhage, infarcts -Add aspirin 81 mg upon discharge #Moderate/severe aortic stenosis -Patient was diagnosed with aortic stenosis 3 years ago -Since then following up with Dr. Tanner. -JODIE was done which showed a bicuspid aortic valve with calcifications. Plan: -Recommended TAVR on outpatient basis -Continue outpatient follow-up #History of hypertension -Patient had history of hypertension and and stopped medication as his blood pressures are well-controlled Plan -Will continue to monitor blood pressures and add medications if needed #Hyperlipidemia Lipid panel done on this admission, LDL-111 Plan: -Atorvastatin 40 mg at bedtime #Mantle cell lymphoma -Patient was diagnosed with mantle cell lymphoma 3 years ago -Completed chemotherapy sessions and is on yearly infusion of rituximab -Recommend to follow-up on outpatient basis with oncologist Hospital Maintenance: Dispo: Telemetry DVT ppx: SCD GI ppx: Not needed Diet: Regular IV lines: Peripheral Code status: Full code Patient plan of care was discussed with the attending physician, Dr. Radha Meadows, PGY1 Attending Provider Attestation/Addendum Patient seen and examined with resident physician Dr. Neville. Note reviewed, agree with findings and recommendations. Patient with pH disturbance and stroke. Received tPA. Went for JODIE and bubble study which was negative. Will follow him overnight and possible discharge tomorrow.
[2024-07-25] MEDS: ATORVASTATIN CALCIUM 20 MG TABLET 40 MG PO (20:05)
--- NOTE | 2024-07-25 23:09 | ESPR_ITS ---
Documentation for date of: 07/25/24 Subjective Subjective Interval history: Patient was seen in telemetry today at the bedside while he was trying to go to sleep. He stated that numbness, lack of coordination in the left upper extremity and gait unsteadiness have all resolved and is back to baseline. Denies any headache or dizziness any longer. Exam - Neurology Vital Signs Temp Pulse Resp BP Pulse Ox O2 Del Method 98.1 F 63 24 H 137/89 H 98 Room Air 07/25/24 20:36 07/25/24 20:36 07/25/24 20:36 07/25/24 20:36 07/25/24 20:36 07/25/24 20:36 Narrative Exam GENERAL APPEARANCE: Well hydrated, well-nourished in no acute distress. HEENT: Normocephalic, atraumatic, extraocular movements intact. Pupils: Equal reacting to light and accommodation NECK: Supple, no JVD or bruits. CARDIOVASULAR: Heart: S1, S2 heard, regular without S3-S4 or murmur no rubs or gallops. LUNGS/CHEST: Clear to auscultation bilaterally. No rails, rhonchi, or wheezing. Normal inspection. ABDOMEN: Soft, nontender, with normal bowel sounds. No pulsatile masses. No rebound, rigidity, or guarding. Normal inspection and palpation. EXTREMITIES: Normal inspection and palpation. No edema, clubbing or cyanosis. SKIN: Warm and dry without rashes. Normal inspection. MUSCULOSKELETAL: No cervical, thoracic, lumbar or midline bony tenderness. Normal inspection. NEURO: Alert, awake and oriented x3. Cranial nerves: II through XII grossly intact. Speech and language: Normal with no dysarthria or dysphasia. Motor system: Tone and bulk: Normal: Strength: 5 out of 5 in all 4 extremities; No pronator drift noted. Deep tendon reflexes: 2+ bilaterally symmetrical. Plantar reflex: Downgoing bilaterally. Sensory system: Intact to all modalities of sensation bilaterally. Coordination: Intact to [id number] and [id number] test bilaterally. No ataxia, no dysmetria, or dysdiadochokinesia noted. No intention tremors noted. Gait: Normal without gait ataxia. No signs of meningeal irritation noted. PSYCHIATRIC: Normal mood and affect. Objective Labs 07/26/24 05:10 07/26/24 05:10 Labs: Laboratory Results - last 24 hr 07/25/24 04:44 WBC 6.3 RBC 4.69 Hgb 13.8 Hct 40.6 L MCV 87 MCH 29.4 MCHC 34.0 RDW Std Deviation 44.5 H Plt Count 111 L D Neut % (Auto) 78 Lymph % (Auto) 7 L [place] % (Auto) 12 Eos % (Auto) 2 Baso % (Auto) 1 Neut # (Auto) 4.9 Lymph # (Auto) 0.4 L [place] # (Auto) 0.7 Eos # (Auto) 0.1 Baso # (Auto) 0.0 Immature Gran # (Auto) 0.02 H Absolute Nucleated RBC 0.00 Immature Gran % 0 Nucleated RBC % 0 Sodium 144 Potassium 4.2 Chloride 110 H Carbon Dioxide 26.3 Anion Gap 8 BUN 18 Creatinine 1.3 Estim Creat Clear Calc 60.3 L eGFR > 60 BUN/Creatinine Ratio [address] Glu mg/dL 100 Hemoglobin A1c 5.1 Calculated Osmolality 288 Calcium 9.3 Corrected Calcium 9.3 Phosphorus 3.4 Magnesium 2.0 Total Bilirubin 0.6 AST 11 ALT 21 Alkaline Phosphatase 89 Total Protein 5.9 Albumin 4.0 D Globulin 1.9 L Albumin/Globulin Ratio 2.1 Triglycerides 66 Cholesterol 170 LDL Cholesterol, Calc 111 HDL Cholesterol 46 Cholesterol/HDL Ratio 3.7 L TSH 1.07 Assessment & Plan Assessment and plan (1) Acute CVA (cerebrovascular accident): Status: Acute Assessment and plan: Significant improvement noted after tenecteplase back to baseline Neurological exam: Afocal MRI brain showed acute infarction in the posterior fossa and left cerebellar vermis Will start Plavix along with statin. Add 81 mg of aspirin upon discharge to take for 21 days. Follow-up with the transesophageal echocardiogram report (2) B-cell non-Hodgkin lymphoma: Status: Chronic Assessment and plan: Stable and is being monitored closely. (3) Aortic stenosis: Status: Chronic Assessment and plan: Followed by cardiology closely, needs aortic valve replacement sometime soon
[2024-07-26] VITALS: BP 128/81; PULSE 54; PULSE 57; RESP 19; TEMP 37.2; O2SAT 97
[2024-07-26 04:00] VITALS: BP 133/85; PULSE 58; PULSE 64; RESP 20; TEMP 36.4; O2SAT 97
[2024-07-26 06:01] LABS: Basophils % (Auto) 1 % (0-2.5); Eosinophils # (Auto) 0.2 Thou/mm3 (0.0-0.5); Eosinophils % (Auto) 3 % (0-10); Hemoglobin 14.2 g/dL (13.5-16.0); Immature Granulocytes % (Auto) 0 % (0-0); Immature Granulocytes Auto 0.02 Thou/mm3 (0.00-0.00); Lymphocytes # (Auto) 0.5 Thou/mm3 (1.0-4.8); Lymphocytes % (Auto) 8 % (10-50); Mean Corpuscular HGB Conc 34.6 g/dl (31.0-37.0); Mean Corpuscular Hemoglobin 29.8 pg (25.0-35.0); Mean Corpuscular Volume 86 fL (80-100); Monocytes # (Auto) 0.7 Thou/mm3 (0.0-0.8); Monocytes % (Auto) 11 % (0-12); Neutrophils # (Auto) 4.8 Thou/mm3 (1.8-7.7); Neutrophils % (Auto) 77 % (37-80); Nucleated Red Blood Cell % 0 /100 WBC (0); Platelet Count 137 Thou/mm3 (140-440); Red Blood Count 4.77 Miln/mm3 (4.50-5.90); White Blood Count 6.2 Thou/mm3 (3.8-10.6)
[2024-07-26 06:22] LABS: Alanine Aminotransferase 18 U/L (10-49); Albumin/Globulin Ratio 2.1 (1.2-2.2); Alkaline Phosphatase 92 U/L (46-116); Anion Gap 7 (7-16); Aspartate Amino Transferase 10 U/L (0-34); BUN/Creatinine Ratio 14 Ratio (12-20); Bilirubin,Total 0.7 mg/dL (0.3-1.2); Blood Urea Nitrogen 17 mg/dL (9-23); Calcium 9.2 mg/dL (8.3-10.6); Calcium (Corrected) 9.2 mg/dL (8.5-10.1); Carbon Dioxide 25.7 mMol/L (20.0-31.0); Chloride 109 mMol/L (98-107); Creatinine (Component) 1.2 mg/dL (0.6-1.3); Estimated Creatinine Clearance 64.7 mL/min (>60); Globulin 1.9 gm/dL (2.3-3.5); Glucose 96 mg/dL (74-106); Osmolality,Calculated 284 (275-295); Potassium 4.2 mMol/L (3.4-5.1); Sodium 142 mMol/L (136-145); Total Protein 5.9 gm/dL (5.7-8.2); eGFR > 60 See Note
[2024-07-26 07:15] VITALS: PULSE 62; RESP 18; RESP 97
[2024-07-26] MEDS: CLOPIDOGREL BISULFATE 75 MG TABLET PO (07:57)
--- NOTE | 2024-07-26 07:57 | PC.NURSE ---
Addendum entered by Heaven Ortega RN 07/26/24 10:01: Dr. Garcia advised patient to returnt to work in a week and a half or when advised by all providers, pt. states I will come back to work in a week and a half no matter whate. Original Note: Dr. Garcia at bedside and talked to patient about discharge plans and meds. Pt. aware to follow up wtih Dr. Pacheco Jerez and verbalizes appointment date and time already established. Pt. also aware to follow up with Dr. Garcia within 1-[address] Sin within 2-3 weeks. Pt. aware of medications for discharge: Lipitor 40 mg PO HS, Plavix 75 mg PO Daily, and Aspirin 81 mg PO Daily for 21 days. Pt. aware to get aspirin over the counter. pt. agrees to information.
[2024-07-26 08:00] VITALS: BP 154/93; PULSE 57; PULSE 68; RESP 18; TEMP 36.7; O2SAT 94
--- NOTE | 2024-07-26 08:28 | ESPR_ITS ---
Documentation for date of: 07/26/24 Subjective Subjective Interval history: Patient seen and examined today, reports significant improvement in symptoms denies any residual symptoms JODIE showed Severe aortic stenosis noted with a V-max of 4 m/s, mean PG of 39 mmHg and a peak PG of 65 mmHg. DURAN 0.8 cm?.Possible bicuspid P1 versus bicuspid valve with fused normal right cusps. Moderate to severe calcification of aortic valve. Normal LV size and function with an EF of around 55 to 60%. Normal RV size and function. Trace TR and mild MR. No pericardial effusion. Minumal atheromatous plaque noted in the arch of aorta and descending aorta. Follow up in office in 1 week to start outpatient TAVR workup. Exam Vital Signs Temp Pulse Resp BP Pulse Ox O2 Del Method 98.1 F 57 L 18 154/93 H 94 L Room Air 07/26/24 08:00 07/26/24 08:00 07/26/24 08:00 07/26/24 08:00 07/26/24 08:00 07/26/24 08:00 Narrative Exam Physical Exam General: Awake and in no acute distress. Conversational and non-toxic appearing. HEENT: Normocephalic, atraumatic, mucous membranes moist. Heart: Regular rate and rhythm, aortic stenosis murmur+ in aortic area Lungs: Clear to auscultation with no wheezing or crackles. Abdomen: Soft, nondistended, nontender, positive bowel sounds. ?No guarding or rebound tenderness. Neurologic: Alert and oriented x3, no gross neurological deficit, and patient able to move all 4 extremities. Extremities: No edema. Skin: No rash or ecchymoses. Objective Labs 07/26/24 05:10 07/26/24 05:10 Labs: Laboratory Results - last 24 hr 07/25/24 07/26/24 04:44 05:10 WBC 6.2 RBC 4.77 Hgb 14.2 Hct 41.0 MCV 86 MCH 29.8 MCHC 34.6 RDW Std Deviation 43.0 Plt Count 137 L D Neut % (Auto) 77 Lymph % (Auto) 8 L [place] % (Auto) 11 Eos % (Auto) 3 Baso % (Auto) 1 Neut # (Auto) 4.8 Lymph # (Auto) 0.5 L [place] # (Auto) 0.7 Eos # (Auto) 0.2 Baso # (Auto) 0.0 Immature Gran # (Auto) 0.02 H Absolute Nucleated RBC 0.00 Immature Gran % 0 Nucleated RBC % 0 Sodium 142 Potassium 4.2 Chloride 109 H Carbon Dioxide 25.7 Anion Gap 7 BUN 17 Creatinine 1.2 Estim Creat Clear Calc 64.7 eGFR > 60 BUN/Creatinine Ratio [address] Glu mg/dL 100 Hemoglobin A1c 5.1 Calculated Osmolality 284 Calcium 9.2 Corrected Calcium 9.2 Total Bilirubin 0.7 AST 10 ALT 18 Alkaline Phosphatase 92 Total Protein 5.9 Albumin 4.0 Globulin 1.9 L Albumin/Globulin Ratio 2.1 Quality Measures Quality Measures none Advance care planning discussed with:: patient Assessment & Plan Assessment Current Active Medications: Generic Name Dose Route Start Last Admin Trade Name Freq PRN Reason Stop Dose Admin Acetaminophen 650 mg 07/24/24 12:40 Acetaminophen 325 Mg Tablet PO 08/23/24 12:39 Q6H PRN Fever >101.5 Atorvastatin Calcium 40 mg 07/25/24 21:00 07/25/24 20:05 Atorvastatin Calcium 20 Mg Tablet PO 08/24/24 20:59 40 mg HS NAVA Administration Clopidogrel Bisulfate 75 mg 07/25/24 12:30 07/26/24 07:57 Clopidogrel Bisulfate 75 Mg Tablet PO 08/24/24 12:29 75 mg QDAY NAVA Administration Labetalol HCl 10 mg 07/24/24 11:41 07/24/24 11:45 Labetalol Inj 5 Mg/Ml Vial 20 Ml IVP 10 mg PRNMRX1 PRN Administration SBP > 180 mmHg or DBP > 105 Ondansetron HCl 4 mg 07/24/24 11:08 07/24/24 12:17 Ondansetron Inj 2 Mg/Ml Inj 2 Ml IV 08/23/24 11:07 4 mg Q4HR PRN Administration NAUSEA OR VOMITING Plan Summary: Mr. Alvarez is a 64-year-old male with past medical history of mantle cell lymphoma on rituximab, pleurodesis, hyperlipidemia and moderate to severe aortic stenosis who presented to [facility] emergency department from home on 07/24/2024 with a chief complaint of abrupt onset of dizziness, left- sided heaviness and reduced fine motor control, dysarthria and ataxic gait. Patient admitted to hospital for acute CVA status post TNK management. # Moderate to severe aortic stenosis Patient has history of moderate to severe aortic stenosis, follows cardiology outpatient, did not meet criteria for TAVR, is scheduled for echocardiogram every 3 months, compliant with follow-up follows closely. He denies any syncope/presyncopal episode, patient's current symptom likely secondary to CVA. He has murmur auscultated on physical exam. TTE 07/25/2024: Bubble study negative for any PFO or ASD. Consider JODIE if high index of clinical suspicion. Normal LV size and function with an EF of 55 to 60%. Mild LVH. Grade 2 diastolic dysfunction. Normal RV size and function. Normal RVSP of 25 mmHg. Mild MR with mild MAC. Mild TR. Moderate to severe calcification of the aortic valve. Severe aortic stenosis with a V-max of around 3.9-4 m/s. Mean PG of 44 mmHg. Max PG of 8 mmHg. DURAN 0.8 cm? JODIE 07/25/2024: No evidence of any PFO or ASD. There was no LA or FANNIE thrombus. Severe aortic stenosis noted with a V-max of 4 m/s, mean PG of 39 mmHg and a peak PG of 65 mmHg. DURAN 0.8 cm?. Possible bicuspid P1 versus bicuspid valve with fused normal right cusps. Moderate to severe calcification of aortic valve. Normal LV size and function with an EF of around 55 to 60%. Normal RV size and function. Trace TR and mild MR. No pericardial effusion. Minumal atheromatous plaque noted in the arch of aorta and descending aorta. Plan: -Outpatient TAVR workup, follow up in a week. -Continue outpatient workup for close monitoring # Hyperlipidemia Had elevated cholesterol and LDL on 05/30/2024 with cholesterol 221, LDL 150 HDL 49, last hemoglobin A1c from May 2024 is 5.1. ASCVD 2013 risk calculator 12.7% risk of cardiovascular event in the next 10 years, recommended statin therapy, as patient has acute CVA high intensity statin recommended Recommendations: -Continue atorvastatin 40 mg at bedtime # Hypertension On presentation blood pressure 186/101, had acute CVA status post tenecteplase Blood pressure continues to remain elevated, 132/85, will benefit from antihypertensive therapy. Recommendation: Consider starting patient on losartan for afterload reduction # Acute cerebrovascular accident status post TNK # Multiple small acute infarcts posterior fossa, left superior vermis Patient presented with abrupt onset of dizziness, left-sided heaviness reduced fine motor control dysarthria and ataxic gait CT scan of head negative for acute hemorrhage mass effect or midline shift, subtle low-density in right parietal lobe suspicious for early acute infarct along right MCA, head and neck CTA negative for any large vessel occlusions and chest x-ray negative for lobar pneumonia or pulmonary edema. EKG in ED showed sinus rhythm, heart rate [address]-T changes MRI shows multiple small infarcts posterior fossa, left piriformis Recommendations: -Neurology following, management per primary team -Holter monitoring outpatient to rule out arrhythmias -Patient is on Plavix p.o. currently, neurology recommends discharging patient on aspirin Plavix for 21 days. # Mantle cell lymphoma in remission Patient follows Dr Chen outpatient on rituximab Has history of pleurodesis, surgeries for necrotic lymph node removal. Case discussed with Attending Dr. Tanner. Silvia Rod PGY1 Disclaimer: This note was dictated by speech recognition. Minor errors in carton packaging machine operator may be present due to voice recognition software. Attending Provider Attestation/Addendum I have personally seen and examined the patient separately on the above date of service and discussed the plan of care with the resident. I reviewed the resident Dr. Silvia Rod consultation progress note and agree with the resident findings and plan in the note above and have also edited the documentation to reflect my findings and plan. Jorge Alberto Tanner M.D. Interventional Cardiology
--- NOTE | 2024-07-26 08:40 | ESDS_ITS ---
Planned Discharge Date 07/26/24 DS: Providers Provider Date of admission: 07/24/24 12:40 Primary care physician: Hector Garcia MD Admitting Provider: Mumtaz Bennett MD Attending Provider on Admission: Mumtaz Bennett MD Consults: 07/24/24 11:08 Consult to Neurology / Tele-Neurology Routine Comment: Consulting Provider: [facility] 07/24/24 12:44 Consult to Neurology / Tele-Neurology Routine Comment: Consulting Provider: Julio C Sin 07/24/24 15:14 Referral Physical Therapy Routine Comment: Physician Instructions: 07/24/24 16:25 Consult to Cardiology Routine Comment: Consulting Provider: Jorge Alberto Tanner Attending Provider on DC: Jamin Meadows MD Discharging Provider: Jamin Meadows MD DS: Diagnosis Problem List Completed Was Problem List Reviewed/Reconciled?: Yes Hospital Course Hospital Course Hospital course: A 64-year-old male with past medical history of hypertension, hyperlipidemia, aortic stenosis, mantle cell lymphoma who presented to the ED on 07/24/2024 with left-sided heaviness, dysarthria and ataxic gait that started 1 hour before admission and admitted for acute stroke. Labs done showed mild thrombocytopenia, rest of the labs are within normal limits. CT head done at the time of admission showed negative for acute hemorrhage, mass effect and midline shift. Subtle low-density areas in the right parietal lobe, suspicious for early acute infarct in the distribution of the right middle cerebral artery. Head/neck CTA showed no significant neck arterial stenosis, no cerebral large vessel arterial occlusions or thrombus. Chest x-ray did not show any infiltrates. EKG showed normal sinus rhythm without ST-T wave changes. Brain MRI showed multiple small acute infarcts in posterior fossa, left superior vermis. Hospital course: Patient underwent thrombolysis as he came within the window period and later admitted in the ICU for 24-hour monitoring. Rest of the hospital course was unremarkable. Patient was treated with clopidogrel and atorvastatin during the hospital stay. Physical therapy was done Repeat head CT for post thrombolytic therapy showed no interval acute h emorrhage, mass effect or midline shift. Echo showed normal LV size with EF of 55 to 60% with grade 2 diastolic dysfunction, moderate to severe calcification of aortic valve, DURAN 0.8 cm?, bubble study negative for PFO or ASD. JODIE did not show any evidence of PFO/ASD. Patient was discharged to hospital with the following medications and recommendations -Follow-up with PCP within 1 week of discharge. -Atorvastatin 40 Mg at bedtime, clopidogrel 75 Mg p.o. daily -Continue aspirin for 21 days -Follow-up with Dr. Tanner for follow-up of aortic stenosis -Follow-up with Dr. Sin for stroke -Return to ED if symptoms persist or return Patient plan of care was discussed with the attending physician, Dr. Radha Meadows, PGY1 Status at Discharge Cognitive/behavioral status at discharge: Stable Functional status at discharge: independent ambulation Overall status at discharge: patient is back to baseline Time Spent with Patient Time attestation: Total time spent providing and/or coordinating discharge services: Time spent: Greater than 30 minutes Exam Vital Signs Temp Pulse Resp BP Pulse Ox O2 Del Method 98.1 F 57 L 18 154/93 H 94 L Room Air 07/26/24 08:00 07/26/24 08:00 07/26/24 08:00 07/26/24 08:00 07/26/24 08:00 07/26/24 08:00 Narrative Exam General: Awake. HEENT: Normocephalic, atraumatic, mucous membranes moist. Heart: Regular rate and rhythm, no murmurs. Lungs: Clear to auscultation with no wheezing or crackles. Abdomen: Soft, nondistended, nontender, positive bowel sounds. ?No guarding or rebound tenderness. Neurologic: Alert and oriented x3, no gross neurological deficit, and patient able to move all 4 extremities. Extremities: No edema. Skin: No rash or ecchymoses. Discharge Plan Plan Patient Disposition: HOME (Self Care) Patient condition on transfer: Stable Care Plan Goals: -Follow-up with PCP within 1 week of discharge. -Atorvastatin 40 Mg at bedtime, clopidogrel 75 Mg p.o. daily -Continue aspirin for 21 days -Follow-up with Dr. Tanner for follow-up of aortic stenosis -Follow-up with Dr. Sin for stroke -Return to ED if symptoms persist or return Prescriptions/Referrals Prescriptions/Med Rec: New atorvastatin 20 mg Tablet 40 mg PO HS Qty: 30 0RF clopidogrel 75 mg Tablet 75 mg PO QDAY Qty: 30 0RF No Action mupirocin 2 % ointment kit 1 applic topical TID Qty: 1 0RF Triple Antibiotic [place] 3.5-400-5,000 nd-evqy-ayim aerosol,spray 0.125 g topical QDAY 7 Days Qty: 56 1RF ibuprofen 800 mg Tablet 800 mg PO Q8H PRN (Reason: Pain) clindamycin HCl 150 mg capsule 150 mg PO TID Qty: 21 0RF prednisone 20 mg tablet 20 mg PO QDAY Qty: 5 0RF Referrals: Jorge Alberto Tanner MD [Physician] - Hector Garcia MD [Primary Care Provider] - Patient/Caregiver Discharge Instructions Discharge Activity: activity as tolerated Other Discharge Activity Instructions:: Follow up with Dr. Garcia in 1-2 weeks. Follow up with Dr. Haja Diallo- 1 week. [phone] Sin in 2-3 weeks. Call for appointment date and time. Education Materials: Aortic Stenosis, Discharge Instructions for Stroke Print Language: Danish Activity Restrictions/Additional Instructions: f/u with me in 1-2 weeks f/u with dr. Haja diallo- 2-3 weeks f/u with neurology 2-3 weeks Stand Alone Forms: Kori Award Info., Patient Portal Info Letter Discharge Order Discharge Orders: Discharge (Routine); Ordered 07/26/24 Ordered By: Hector Garcia Quality Discharge Quality Measures VTE prophylaxis MD Attestestation MD Attestation Patient seen and examined with resident physician Dr. Neville. Note reviewed, agree with findings and recommendations. Patient will be discharged on Plavix, high intensity statin, aspirin. Follow-up with myself, Dr. Pacheco Diallo, Dr. Sin in 1 to 2 weeks.
--- NOTE | 2024-07-26 09:11 | PC.NURSE ---
Pt. self removed child monitor. Pt. aware that monitor box should stay on until time of DC, waiting for DC orders. Pt. states I took it off, I am ready to go home.
[2024-07-26 09:42] VITALS: BP 140/88; PULSE 68; RESP 16; TEMP 36.6; O2SAT 94
--- NOTE | 2024-07-26 09:53 | PC.NURSE ---
Called pt. to remind about getting aspirin 81 mg over the counter to take for [address] Garcia.
[2024-07-26 10:25] VITALS: BP 140/88; PULSE 80; RESP 20; TEMP 37.1; O2SAT 96
== END 2024-07-26 09:42 | disposition home or self-care (01) | DRG 62 ==
LOC: SERX 12:33 → SERHOLD 12:55 → S2SX 14:24 → S2NX 07-25 16:55
PROVIDERS: Student in an Organized Health Care Education/Training Program; Admitting Provider Internal Medicine Critical Care Medicine; Emergency Provider Emergency Medicine; PCP Internal Medicine; Visit Provider Internal Medicine Critical Care Medicine
DX: I63.9 Cerebral infarction, unspecified (principal); C83.1A Mantle cell lymphoma, in remission; G81.94 Hemiplegia, unspecified affecting left nondominant side; R26.0 Ataxic gait; R47.1 Dysarthria and anarthria; E78.5 Hyperlipidemia, unspecified; H93.13 Tinnitus, bilateral; I35.0 Nonrheumatic aortic (valve) stenosis; D69.6 Thrombocytopenia, unspecified; Q23.81 Bicuspid aortic valve; R47.81 Slurred speech; I10 Essential (primary) hypertension; I35.8 Other nonrheumatic aortic valve disorders; R26.9 Unspecified abnormalities of gait and mobility; Z86.73 Personal history of transient ischemic attack (TIA), and cerebral infarction without residual deficits; Z79.02 Long term (current) use of antithrombotics/antiplatelets; Z79.899 Other long term (current) drug therapy; Z88.8 Allergy status to other drugs, medicaments and biological substances; R29.703 NIHSS score 3
CPT/HCPCS: 36415; 36600; 70450; 70496; 70498; 70551; 71045; 80053; 80061; 80307; 80320; 82803; 83036; 83735; 83880; 84100; 84443; 84484; 85025; 85610; 85730; 87081; 93005; 93306; 93312; 96374; 96375; 97162; 99285; A4649; J2250; J2405; J3010; J3101; J3490; J7030; Q9967; A9270; G0480; J1920

== ENCOUNTER 2024-07-30 13:29 | Outpatient (RCR) | payer MEDICARE, OTHER, SELFPAY ==
--- NOTE | 2024-08-12 22:30 | CTCFLWUP_ITS ---
Patient: JEFFREY ALVAREZ : 1960 Page 5 of 7 FOLLOW UP NOTE DATE OF SERVICE: 07/30/2024 NAME: JEFFREY ALVAREZ ACCOUNT: [id number] : 1960 AGE: 64 INTERVAL HISTORY: Patient diagnosed with aortic stenosis and want to get his heart valve replaced. Patient requesting to be off treatment to help with heart issues. ONCOLOGY HISTORY: DIAGNOSIS: Other specified types of non-Hodgkin lymphoma, lymph nodes of multiple sites [ICD10] C85.88 Mantle cell lymphoma stage IV disease. Ki-67 less than 30%. Bone marrow involvement more than 90%. SOX11 positive. TP53 mutation not detected. Currently on maintenance rituximab (03/31/2023?? planned for 2 years ) S/p 6 cycles of Bendamustine and rituximab (08/17/2022 - 01/28/2023). Pleural effusion resolved with pleurodesis. Aortic stenosis, being followed by Dr. Alex Jerez and planned for TAVR DATE OF DIAGNOSIS: 07/22/2022 STAGE/TNM: Mantle cell lymphoma stage IV TREATMENT HISTORY: Care?Plan Start?Date Cycle Day Intent Rituxan?375?+?Bendamustine?90?Aura 08/09/2022 1 28 Palliative Rituximab?375mg/m*2?maint?q?2month?for?3?yrs?Mantle?ceel?lymphoma 03/31/2023 1 60 Palliative HISTORY OF PRESENT ILLNESS: Jeffrey Alvarez is a 64-year-old ENG speaking male without significant past medical history was seen by his primary care doctor yesterday who noticed diffuse lymphadenopathy, splenomegaly as well as lymphocytosis. 07/22/2022: WBC 22.6, absolute lymphocyte count 16.7, hemoglobin 7.3, MCV 90, platelets 71,000, nucleated RBCs 0.05, creatinine 1.7, T. bili 0.6, ferritin 43, B12 305, TSH 2.10 07/23/2022: Flow cytometry of the peripheral blood Neotype analysis CLL profile? 07/26/2022: Right inguinal lymph node excision biopsy? 08/02/2022:Bone marrow biopsy and aspiration? 09/30/2022: PET/CT scan. Compared with August 05, 2022: Significant treatment response with decrease in neck, supraclavicular, mediastinal, axillary, abdominal and pelvic lymphadenopathy. Patient had multiple left-sided pleurodesis done for recurrent pleural effusion. 01/28/2023: Completed 6 cycles of Bendamustine and rituximab. 03/31/2023: Mr. Alvarez is started on maintenance rituximab. 06/02/2023: PET/CT scan? OTHER MEDICAL HISTORY/CONDITIONS: T12 compression fx - 2003 Mantle cell lymphoma - Denies ?Clone Other Med Hx? FAMILY HISTORY: Mother:?DCIS?-?age?50 ?Clone Family Hx? 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 Tobacco?Use:?Denies ETOH?Use:?Socailly Drug?Note:?Denies Social?History?Note:?Lives?with? ?Clone Social Hx? MEDICATIONS: 1. aspirin - 81 mg 1 tab Daily 2. famotidine - 10 mg 1 tab Daily 3. Plavix - 75 mg 1 tab Daily 4. simvastatin - 40 mg 1 tab Daily?[place]ra Meds? Medications Last Reconciled by Prachi Pardo MA on 07/30/2024 ALLERGIES: lisinopril; promethazine HCl REVIEW OF SYSTEMS: A complete 14-point review of systems was performed and is negative except as noted in interval history. PHYSICAL EXAMINATION: VITAL SIGNS: Temperature?99.2, B/P?128/78, Oxygen?Saturation?97% Weight?207.2?lbs PAIN: 0 - No pain GENERAL APPEARANCE: Appears well, in no apparent distress, appropriately interactive. HEENT: Normocephalic, no temporal wasting, normal conjunctiva, no scleral icterus, normal hearing, lips without lesions, neck normal range of motion. CARDIOVASCULAR: Not assessed. PULMONARY: Normal respiratory effort, no respiratory distress or use of accessory muscles, speaking in full sentences, no tachypnea. EXTREMITIES: No pedal edema or cyanosis. SKIN: Normal skin appearance. NEUROLOGIC: Alert and oriented x4. PSHYCHIATRIC: Appropriate affect, mood normal, behavior normal, intact thought and speech. LABORATORY DATA: I have personally reviewed and interpreted each of the patient?s relevant lab tests, abnormal findings are below: Date 07/25/24 07/26/24 ??WHITE?BLOOD?COUNT?(Thou/mm3) 6.3 6.2 ??RED?BLOOD?COUNT?(Miln/mm3) 4.69 4.77 ??HEMOGLOBIN?(gm/dl) 13.8 14.2 ??HEMATOCRIT?(%) 40.6?L 41.0 ??PLATELET?COUNT?(Thou/mm3) 111?L 137?L ??NEUTROPHILS?%,?AUTO?(%) 78 77 ??LYMPH?%,?AUTO?(%) 7?L 8?L ??NEUTROPHILS,?AUTO?(Thou/mm3) 4.9 4.8 ??GLUCOSE,RANDOM?(mg/dL) 106 96 ??BLOOD?UREA?NITROGEN?(mg/dL) 18 17 ??CREATININE?(mg/dL) 1.30 1.20 ??SODIUM?(mmol/L) 144 142 ??POTASSIUM?(mmol/L) 4.2 4.2 ??CHLORIDE?(mmol/L) 110?H 109?H ??CrCl?(CandG)?(ml/min) 60.20 65.21 ??AST/SGOT?(Unit/L) 11 10 ??ALT/SGPT?(Unit/L) 21 18 ??ALKALINE?PHOSPHATASE?(Unit/L) 89 92 ??BILIRUBIN,?TOTAL?(mg/dL) 0.6 0.7 ??PROTEIN?TOTAL?(gm/dl) 5.9 5.9 ??ALBUMIN,?SERUM?(gm/dl) 4.0 4.0 ??GLOBULIN?(gm/dl) 1.9?L 1.9?L ??ALBUMIN/GLOBULIN?RATIO 2.1 2.1 ??CALCIUM,?SERUM?(mg/dL) 9.3 9.2 ??CALCIUM?SERUM?(CORRECTED)?(mg/dL) 9.3 9.2 ASSESSMENT/PLAN: . Mantle cell lymphoma stage IV disease. Ki-67 less than 30%. Bone marrow involvement more than 90%. SOX11 positive. TP53 mutation not detected.. S/p 6 cycles of Rituxan and Bendamustine (6 08/10/2022?01/28/2023). Last PET/CT scan was done on June 02, 2023 which did not show any evidence of recurrence as documented above. Mr. Alvarez is clinically doing well without any complaints. Currently on maintenance rituximab started on 03/31/2023 Had malignant pleural effusion on the left side and was treated with pleurex The lymphadenopathy has dramatically decreased in size. Splenomegaly is decreased almost half. Peripheral blood lymphocytosis is resolved. Continue maintenance rituximab as per treatment plan for a total of 2 years till 03/2025 . No clinical eveidence of recurrence As aortic stenosis and need valve replacement will hold rituximab until after the procedure ORDERS: Hold the rituximab RETURN TO CLINIC: I will see him back in the clinic in 2 months. BILLING AND COMPLIANCE: I reviewed external records from providers outside my specialty as summarized above. I spent a total of 50 minutes on this patient?s care on the day of their visit excluding time spent related to any billed procedures. This time includes time spent with the patient as well as time spent documenting in the medical record, reviewing patients records and tests, obtaining history, placing orders, communicating with other healthcare professionals, counseling the patient, family or caregiver, and/or care coordination for the diagnoses above. Electronically Signed by: Ishmael Chen MD T: 10:28 PM CC: PCP: Hector Garcia Referring: Hector Garcia This document was completed utilizing speech recognition software. Grammatical errors, random word insertions, pronoun errors, and incomplete sentences are an occasional consequence of this system due to software limitations, ambient noise, and hardware issues. Any formal questions or concerns about the content, text or information contained within the body of this dictation should be directly addressed to the provider for clarification.
== END 2024-08-20 23:59 | disposition home or self-care (01) ==
LOC: SCTC 13:29
PROVIDERS: PCP Internal Medicine; Referring Provider Internal Medicine; Visit Provider Internal Medicine Hematology & Oncology
DX: Z08 Encounter for follow-up examination after completed treatment for malignant neoplasm (principal); Z85.72 Personal history of non-Hodgkin lymphomas; I35.0 Nonrheumatic aortic (valve) stenosis
CPT/HCPCS: 99212; G0463

== ENCOUNTER 2024-10-03 10:29 | Outpatient (RCR) | payer MEDICARE, OTHER, SELFPAY ==
[2024-10-02 11:56] LABS: Basophils % (Auto) 1 % (0-2.5); Eosinophils # (Auto) 0.1 Thou/mm3 (0.0-0.5); Eosinophils % (Auto) 2 % (0-10); Hematocrit 39.3 % (41.0-53.0); Immature Granulocytes % (Auto) 0 % (0-0); Immature Granulocytes Auto 0.02 Thou/mm3 (0.00-0.00); Lymphocytes # (Auto) 0.5 Thou/mm3 (1.0-4.8); Lymphocytes % (Auto) 9 % (10-50); Mean Corpuscular HGB Conc 35.6 g/dl (31.0-37.0); Mean Corpuscular Hemoglobin 29.7 pg (25.0-35.0); Mean Corpuscular Volume 83 fL (80-100); Monocytes # (Auto) 0.5 Thou/mm3 (0.0-0.8); Monocytes % (Auto) 10 % (0-12); Neutrophils % (Auto) 78 % (37-80); Nucleated Red Blood Cell % 0 /100 WBC (0); Platelet Count 148 Thou/mm3 (140-440); RDW Standard Deviation 42.4 fL (35.1-43.9); Red Blood Count 4.71 Miln/mm3 (4.50-5.90); White Blood Count 5.1 Thou/mm3 (3.8-10.6)
[2024-10-02 12:26] LABS: Alanine Aminotransferase 41 U/L (10-49); Albumin, Serum 4.6 gm/dL (3.4-4.8); Albumin/Globulin Ratio 2.6 (1.2-2.2); Alkaline Phosphatase 116 U/L (46-116); Anion Gap 10 (7-16); Aspartate Amino Transferase 23 U/L (0-34); BUN/Creatinine Ratio 16 Ratio (12-20); Bilirubin,Total 0.7 mg/dL (0.3-1.2); Blood Urea Nitrogen 19 mg/dL (9-23); Calcium 9.3 mg/dL (8.3-10.6); Calcium (Corrected) 9.3 mg/dL (8.5-10.1); Carbon Dioxide 24.9 mMol/L (20.0-31.0); Chloride 111 mMol/L (98-107); Creatinine (Component) 1.2 mg/dL (0.6-1.3); Globulin 1.8 gm/dL (2.3-3.5); Glucose 111 mg/dL (74-106); Osmolality,Calculated 293 (275-295); Potassium 3.7 mMol/L (3.4-5.1); Sodium 146 mMol/L (136-145); Total Protein 6.4 gm/dL (5.7-8.2); eGFR > 60 See Note
--- NOTE | 2024-10-11 14:16 | CTCFLWUP_ITS ---
Patient: JEFFREY ALVAREZ : 1960 Page 5 of 7 FOLLOW UP NOTE DATE OF SERVICE: 10/03/2024 NAME: JEFFREY ALVAREZ ACCOUNT: [id number] : 1960 AGE: 64 INTERVAL HISTORY: Patient diagnosed with aortic stenosis and want to get his heart valve replaced. Patient requesting to be off treatment to help with heart issues. Patient have not yet completed his heart treatment and want to defer chemo appointments ONCOLOGY HISTORY: DIAGNOSIS: Other specified types of non-Hodgkin lymphoma, lymph nodes of multiple sites [ICD10] C85.88 Mantle cell lymphoma stage IV disease. Ki-67 less than 30%. Bone marrow involvement more than 90%. SOX11 positive. TP53 mutation not detected. Currently on maintenance rituximab (03/31/2023?? planned for 2 years ) S/p 6 cycles of Bendamustine and rituximab (08/17/2022 - 01/28/2023). Pleural effusion resolved with pleurodesis. Aortic stenosis, being followed by Dr. Alex Jerez and planned for TAVR DATE OF DIAGNOSIS: 07/22/2022 STAGE/TNM: Mantle cell lymphoma stage IV TREATMENT HISTORY: Care?Plan Start?Date Cycle Day Intent Rituxan?375?+?Bendamustine?90?Aura 08/09/2022 1 28 Palliative Rituximab?375mg/m*2?maint?q?2month?for?3?yrs?Mantle?ceel?lymphoma 03/31/2023 1 60 Palliative HISTORY OF PRESENT ILLNESS: Jeffrey Alvarez is a 64-year-old ENG speaking male without significant past medical history was seen by his primary care doctor yesterday who noticed diffuse lymphadenopathy, splenomegaly as well as lymphocytosis. 07/22/2022: WBC 22.6, absolute lymphocyte count 16.7, hemoglobin 7.3, MCV 90, platelets 71,000, nucleated RBCs 0.05, creatinine 1.7, T. bili 0.6, ferritin 43, B12 305, TSH 2.10 07/23/2022: Flow cytometry of the peripheral blood Neotype analysis CLL profile? 07/26/2022: Right inguinal lymph node excision biopsy? 08/02/2022:Bone marrow biopsy and aspiration? 09/30/2022: PET/CT scan. Compared with August 05, 2022: Significant treatment response with decrease in neck, supraclavicular, mediastinal, axillary, abdominal and pelvic lymphadenopathy. Patient had multiple left-sided pleurodesis done for recurrent pleural effusion. 01/28/2023: Completed 6 cycles of Bendamustine and rituximab. 03/31/2023: Mr. Alvarez is started on maintenance rituximab. 06/02/2023: PET/CT scan? 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 Tobacco?Use:?Denies ETOH?Use:?Socailly Drug?Note:?Denies Social?History?Note:?Lives?with? MEDICATIONS: 1. famotidine - 10 mg 1 tab Daily 2. Plavix - 75 mg 1 tab Daily 3. simvastatin - 40 mg 1 tab Daily Medications Last Reconciled by Prachi Pardo MA on 10/03/2024 ALLERGIES: lisinopril; promethazine HCl REVIEW OF SYSTEMS: A complete 14-point review of systems was performed and is negative except as noted in interval history. PHYSICAL EXAMINATION: VITAL SIGNS: Temperature?99.1, B/P?152/88, Oxygen?Saturation?96% Weight?203.6?lbs (Change?since?10/02/24:?0?lbs) PAIN: 0 - No pain ECOG Performance Status: None GENERAL APPEARANCE: Appears well, in no apparent distress, appropriately interactive. HEENT: Normocephalic, no temporal wasting, normal conjunctiva, no scleral icterus, normal hearing, lips without lesions, neck normal range of motion. CARDIOVASCULAR: Not assessed. PULMONARY: Normal respiratory effort, no respiratory distress or use of accessory muscles, speaking in full sentences, no tachypnea. EXTREMITIES: No pedal edema or cyanosis. SKIN: Normal skin appearance. NEUROLOGIC: Alert and oriented x4. PSHYCHIATRIC: Appropriate affect, mood normal, behavior normal, intact thought and speech. LABORATORY DATA: I have personally reviewed and interpreted each of the patient?s relevant lab tests, abnormal findings are below: Date 10/02/24 10/04/24 ??WHITE?BLOOD?COUNT?(Thou/mm3) 5.1 7.0 ??RED?BLOOD?COUNT?(Miln/mm3) 4.71 4.97 ??HEMOGLOBIN?(gm/dl) 14.0 15.0 ??HEMATOCRIT?(%) 39.3?L 44.0 ??PLATELET?COUNT?(Thou/mm3) 148 162 ??NEUTROPHILS?%,?AUTO?(%) 78 80 ??LYMPH?%,?AUTO?(%) 9?L 7?L ??NEUTROPHILS,?AUTO?(Thou/mm3) 4.0 5.6 ??GLUCOSE,RANDOM?(mg/dL) 111?H 107?H ??BLOOD?UREA?NITROGEN?(mg/dL) 19 21 ??CREATININE?(mg/dL) 1.20 1.30 ??SODIUM?(mmol/L) 146?H 146?H ??POTASSIUM?(mmol/L) 3.7 4.8 ??CHLORIDE?(mmol/L) 111?H 111?H ??CrCl?(CandG)?(ml/min) 65.09 60.08 ??AST/SGOT?(Unit/L) 23 ? ??ALT/SGPT?(Unit/L) 41 ? ??ALKALINE?PHOSPHATASE?(Unit/L) 116 ? ??BILIRUBIN,?TOTAL?(mg/dL) 0.7 ? ??PROTEIN?TOTAL?(gm/dl) 6.4 ? ??ALBUMIN,?SERUM?(gm/dl) 4.6 ? ??GLOBULIN?(gm/dl) 1.8?L ? ??ALBUMIN/GLOBULIN?RATIO 2.6?H ? ??CALCIUM,?SERUM?(mg/dL) 9.3 9.2 ??CALCIUM?SERUM?(CORRECTED)?(mg/dL) 9.3 ? ASSESSMENT/PLAN: . Mantle cell lymphoma stage IV disease. Ki-67 less than 30%. Bone marrow involvement more than 90%. SOX11 positive. TP53 mutation not detected.. S/p 6 cycles of Rituxan and Bendamustine (6 08/10/2022?01/28/2023). Last PET/CT scan was done on June 02, 2023 which did not show any evidence of recurrence as documented above. Mr. Alvarez is clinically doing well without any complaints. Currently on maintenance rituximab started on 03/31/2023 Had malignant pleural effusion on the left side and was treated with pleurex The lymphadenopathy has dramatically decreased in size. Splenomegaly is decreased almost half. Peripheral blood lymphocytosis is resolved. Continue maintenance rituximab as per treatment plan for a total of 2 years till 03/2025 . No clinical eveidence of recurrence As aortic stenosis and need valve replacement will hold rituximab until after the procedure ORDERS: Order # Description [id number] Follow Up Appointment [id number] Follow Up Appointment [id number] Follow Up Appointment [id number] Follow Up Appointment [id number] Follow Up Appointment [id number] Follow Up Appointment [id number] Follow Up Appointment [id number] Follow Up Appointment [id number] Follow Up Appointment [id number] Follow Up Appointment RETURN TO CLINIC: 2 months once all cardiac work is completed BILLING AND COMPLIANCE: I reviewed external records from providers outside my specialty as summarized above. I spent a total of 50 minutes on this patient?s care on the day of their visit excluding time spent related to any billed procedures. This time includes time spent with the patient as well as time spent documenting in the medical record, reviewing patients records and tests, obtaining history, placing orders, communicating with other healthcare professionals, counseling the patient, family or caregiver, and/or care coordination for the diagnoses above. Electronically Signed by: {Object.Sanct_ID*PnP.NameFL@M}, {Object.Sanct_ID*PnP.Suffix@U} D: {Object.Sanct_Date} T: {Object.Sanct_Time} CC: PCP: No Primary/family, Physician Referring: Ishmael Chen This document was completed utilizing speech recognition software. Grammatical errors, random word insertions, pronoun errors, and incomplete sentences are an occasional consequence of this system due to software limitations, ambient noise, and hardware issues. Any formal questions or concerns about the content, text or information contained within the body of this dictation should be directly addressed to the provider for clarification.
== END 2024-10-20 23:59 | disposition home or self-care (01) ==
LOC: SCTC 10:29
PROVIDERS: Referring Provider Internal Medicine Hematology & Oncology; Visit Provider Internal Medicine Hematology & Oncology
DX: I35.0 Nonrheumatic aortic (valve) stenosis (principal); C83.15 Mantle cell lymphoma, lymph nodes of inguinal region and lower limb
CPT/HCPCS: 36415; 80053; 85025; 99212; G0463

== ENCOUNTER 2024-10-05 08:36 | Day surgery (SDC) | payer MEDICARE, OTHER, SELFPAY ==
[2024-10-03 14:50] VITALS: BMI 33.0
--- NOTE | 2024-10-04 07:00 | EKG_ITS ---
[facility] Test Date: 2024-10-04 Pat Name: JULIET GAGNON Department: Room: - Gender: Male Felt Checker: RENEE : 1960 Requested By: Jorge Alberto Tanner Order Number: [id number] Reading MD: Jorge Alberto Tanner Measurements Intervals [place] Rate: 57 P: 31 MN: 200 QRS: 30 QRSD: 126 T: 29 QT: 429 QTc: 419 Interpretive Statements SINUS BRADYCARDIA POSSIBLE RIGHT VENTRICULAR CONDUCTION DELAY [RSR (QR) IN V1/V2] Compared to ECG 07/24/2024 12:01:52 Sinus rhythm no longer present Left-axis deviation no longer present Intraventricular conduction delay no longer present /store/S0/[id number]/ecg/[id number].pdf
[2024-10-04 10:26] LABS: Basophils % (Auto) 0 % (0-2.5); Eosinophils # (Auto) 0.2 Thou/mm3 (0.0-0.5); Eosinophils % (Auto) 2 % (0-10); Immature Granulocytes % (Auto) 0 % (0-0); Immature Granulocytes Auto 0.02 Thou/mm3 (0.00-0.00); Lymphocytes # (Auto) 0.5 Thou/mm3 (1.0-4.8); Lymphocytes % (Auto) 7 % (10-50); Mean Corpuscular HGB Conc 34.1 g/dl (31.0-37.0); Mean Corpuscular Hemoglobin 30.2 pg (25.0-35.0); Mean Corpuscular Volume 89 fL (80-100); Monocytes # (Auto) 0.7 Thou/mm3 (0.0-0.8); Monocytes % (Auto) 10 % (0-12); Neutrophils # (Auto) 5.6 Thou/mm3 (1.8-7.7); Neutrophils % (Auto) 80 % (37-80); Nucleated Red Blood Cell % 0 /100 WBC (0); Platelet Count 162 Thou/mm3 (140-440); RDW Standard Deviation 45.1 fL (35.1-43.9); Red Blood Count 4.97 Miln/mm3 (4.50-5.90)
[2024-10-04 10:34] LABS: Anion Gap 7 (7-16); BUN/Creatinine Ratio 16 Ratio (12-20); Blood Urea Nitrogen 21 mg/dL (9-23); Calcium 9.2 mg/dL (8.3-10.6); Carbon Dioxide 28.5 mMol/L (20.0-31.0); Chloride 111 mMol/L (98-107); Creatinine (Component) 1.3 mg/dL (0.6-1.3); Estimated Creatinine Clearance 60.5 mL/min (>60); Glucose 107 mg/dL (74-106); Osmolality,Calculated 293 (275-295); Potassium 4.8 mMol/L (3.4-5.1); Sodium 146 mMol/L (136-145); eGFR > 60 See Note
[2024-10-04 10:51] LABS: Partial Thromboplastin Time 24.2 Seconds (22.0-36.0); Prothrombin Time 10.5 Seconds (9.0-12.2)
[2024-10-05] VITALS (12 sets, daily range): BP systolic 118–155; BP diastolic 67–99; PULSE 61–68; RESP 12–25; TEMP 36.6–36.9; O2SAT 98–99
[2024-10-05] MEDS: HEPARIN SOD LOCK SYR 100 UNIT/ML 500 UNIT INTRACATH (14:44)
--- NOTE | 2024-10-05 16:42 | PC.NURSE ---
1100 patient is awake, alert, breathing unlabored, s/p LHC, RHC dr Tanner, TR band present to right wrist, no bleedng or hematoma noted, venous sheath present to left groin, no bleeding noted. report received from Madeleine GALICIA, patient to recover for 3 hrs, and 1hr post TR band removal. May remove venous sheath at 1200, continue home medications. 1110 pt void 750ml via urinal 1208 Report given to Katie GALICIA 1252 Report received from Katie GALICIA, Venous sheath has been removed at 1214 with manual pressure applied, dressing to left groin dry with no bleeding or hematoma. 1333 Report given to Lindsey GALICIA 1422 report received from Lindsey GALICIA, TR band has been removed at 1355. Right wrist covered with tegaderm and coban, no bleeding or hematoma noted. 1445 pt has port a cath to right chest, heparin inserted, port de accesses. band aid applied 1500 patient awake,alert, breathing unlabored, dressing to left groin and right wrist dry with no bleeding or hematoma. discharge instructions given to patient and Landy, patient discharged home in wheelchair with all belongings.
--- NOTE | 2024-10-05 17:49 | ESOP_ITS ---
Cardiac Cath Procedure Procedure Name Date of procedure: 10/05/2024 SHELL MOLD BONDER: Jorge Alberto Tanner MD PROCEDURE PERFORMED: 1. Left and right heart cardiac catheterization including right, left coronary angiograms and left ventriculogram 2. Ultrasound-guided access of the right radial artery 3. Conscious sedation for 30 minutes. Procedure Narrative HISTORY AND INDICATIONS: A 64-year-old male with a past medical history of severe aortic stenosis, small pericardial effusion, mantle cell lymphoma stage IV disease with more than 90% bone marrow involvement with diffuse lymphadenopathy splenomegaly as well as lymphocytosis s/p 1 cycle of chemotherapy with Bendamustine and Rituxan complicated with tumor lysis syndrome as well as neutropenic fever, recent recurrent left pleural effusion requiring multiple thoracocentesis [6 times] awaiting Port-A-Cath and left Pleurx placement, anemia requiring multiple blood transfusions previously. Patient is planned to have an aortic valve replacement and was recommended a cardiac catheterization in preparation for procedure. [facility] was brought in for an elective left and right cardiac catheterization. Patient was explained the risk benefits and alternatives of performing a left heart cardiac catheterization including the risk of bleeding, heart attack, stroke and in detail and the agreeable for the procedure. Consent signed, placed in the chart and H&P updated. DESCRIPTION OF PROCEDURE: The patient was brought to the cardiac catheterization lab and all asceptic precautions were followed. Patient was given 1 Mg of Versed and 50 mcg of fentanyl for moderate conscious sedation. 2 mL of lidocaine was given in the right wrist. The right radial artery was accessed via the ultrasound guidance as well as micropuncture technique. A 6 Romanian glide sheath was introduced. We then used a 5 Romanian TIG 4 catheter to perform the left and right coronary angiograms as well as a left ventriculogram which showed the following findings. 1. Left ventricular ejection fraction was normal at 60 to 65% without any re gional wall motion abnormalities. LVEDP was eleavted at 45 mmHg. There was no significant transvalvular aortic gradient. 2. Right dominant circulation 3. Left main artery is a large-caliber vessel without any significant stenosis. 4. LAD is a large sized artery with a medium size diagonal and without show any significant disease. 5. LCx is a large sized artery with medium OM1 and small OM2 without any significant disease. 6. RCA is a large artery with medium RPDA and RPL without any significant disease. Serial measurements of right atrium, right ventricle, pulmonary artery and pulmonary capillary wedge were taken severely with normal respiration as well as at end expiration as noted below. We then used a 6 Romanian TIG 4 catheter to perform the left and right coronary angiogram as well as a left ventriculogram which showed the following findings. RHC findings: Mean right atrial pressure was mmHg. Right atrial pressure was 2/3 mmHg. Pulmonary artery pressure was 14/8 mmHg with a mean of 11 mmHg. Mean pulmonary capillary wedge pressure was 7 mmHg. TPG was 3 mmHg Pulmonary artery PA saturation was 71.7%.? Arterial saturation was 91.8% on room air. Cardiac output was 5.9 L/min and cardiac index was normal at 3.2 L/min/m? A radial band was used to achieve the hemostasis of the right radial artery access. Patient will be monitored in the cardiac concrete placement equipment operator for the next 2 to 3 hours and will be discharged home / telemetry later today if hemodynamically stable. Complications: None Specimens: None Blood loss: Estimated 5-10 ml Summary/findings: 1. LHC showed normal coronaries without any angiographically significant obstruction and few luminal irregularities. 2. LVEF is normal at 60-65%. 3. LVEDP at ... mm hg. No significant transvalvular aortic gradient. 4. Right heart pressures with mean RA of 3 mm hg, mean PA of 11 mmhg and mean PCWP at 7 mm hg. 5. Normal Cardiac ouput and cardiac index Recommendations: 1. Recommend diuresis with lasix 40 mg IV BID and keep net negative 1-2 liters everyday. 2. Recommend aggressive risk factor modification and aggressive medical treatment 3. Recommended no lifting more than 5 pounds for next 7-10 days. Jorge Alberto Tanner MD Interventional Cardiology.
== END 2024-10-05 15:00 | disposition home or self-care (01) ==
PROVIDERS: PCP Internal Medicine; Referring Provider Internal Medicine Cardiovascular Disease; Visit Provider Internal Medicine Cardiovascular Disease
PROC: (CPT 93460; principal; 2024-10-05 08:45)
DX: I25.10 Atherosclerotic heart disease of native coronary artery without angina pectoris (principal); I35.0 Nonrheumatic aortic (valve) stenosis; C83.19 Mantle cell lymphoma, extranodal and solid organ sites; I25.2 Old myocardial infarction; D61.810 Antineoplastic chemotherapy induced pancytopenia; Z68.33 Body mass index [BMI] 33.0-33.9, adult; J90 Pleural effusion, not elsewhere classified; R16.1 Splenomegaly, not elsewhere classified; R59.0 Localized enlarged lymph nodes; Z01.810 Encounter for preprocedural cardiovascular examination
CPT/HCPCS: 93460; 36415; 80048; 85025; 85347; 85610; 85730; 93005; 99152; 99153; A4649; C1753; C1769; C1887; C1894; J0153; J0171; J0282; J0461; J1642; J1643; J2250; J2310; J3010; J3490; Q9967; J2305

== ENCOUNTER 2024-11-13 14:56 | Outpatient (RCR) | payer MEDICARE, OTHER, SELFPAY ==
--- NOTE | 2024-11-15 00:01 | CTCFLWUP_ITS ---
Patient: JEFFREY ALVAREZ : 1960 Page 5 of 7 FOLLOW UP NOTE DATE OF SERVICE: 11/13/2024 NAME: JEFFREY ALVAREZ ACCOUNT: [id number] : 1960 AGE: 64 INTERVAL HISTORY: Patient completed CABG and Aortic valve replacement is cleared by cardiology to start treatment with ritauxin ONCOLOGY HISTORY:?[facility] Hx? DIAGNOSIS: Other specified types of non-Hodgkin lymphoma, lymph nodes of multiple sites [ICD10] C85.88 Mantle cell lymphoma stage IV disease. Ki-67 less than 30%. Bone marrow involvement more than 90%. SOX11 positive. TP53 mutation not detected. Currently on maintenance rituximab (03/31/2023?? planned for 2 years ) S/p 6 cycles of Bendamustine and rituximab (08/17/2022 - 01/28/2023). Pleural effusion resolved with pleurodesis. Aortic stenosis, being followed by Dr. Alex Jerez and planned for TAVR DATE OF DIAGNOSIS: 07/22/2022 STAGE/TNM: Mantle cell lymphoma stage IV TREATMENT HISTORY: Care?Plan Start?Date Cycle Day Intent Rituxan?375?+?Bendamustine?90?Aura 08/09/2022 1 28 Palliative Rituximab?375mg/m*2?maint?q?2month?for?3?yrs?Mantle?ceel?lymphoma 03/31/2023 1 60 Palliative HISTORY OF PRESENT ILLNESS: Jeffrey Alvarez is a 64-year-old ENG speaking male without significant past medical history was seen by his primary care doctor yesterday who noticed diffuse lymphadenopathy, splenomegaly as well as lymphocytosis. 07/22/2022: WBC 22.6, absolute lymphocyte count 16.7, hemoglobin 7.3, MCV 90, platelets 71,000, nucleated RBCs 0.05, creatinine 1.7, T. bili 0.6, ferritin 43, B12 305, TSH 2.10 07/23/2022: Flow cytometry of the peripheral blood Neotype analysis CLL profile? 07/26/2022: Right inguinal lymph node excision biopsy? 08/02/2022:Bone marrow biopsy and aspiration? 09/30/2022: PET/CT scan. Compared with August 05, 2022: Significant treatment response with decrease in neck, supraclavicular, mediastinal, axillary, abdominal and pelvic lymphadenopathy. Patient had multiple left-sided pleurodesis done for recurrent pleural effusion. 01/28/2023: Completed 6 cycles of Bendamustine and rituximab. 03/31/2023: Mr. Alvarez is started on maintenance rituximab. 06/02/2023: PET/CT scan? 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 Tobacco?Use:?Denies ETOH?Use:?Socailly Drug?Note:?Denies Social?History?Note:?Lives?with? MEDICATIONS: 1. Plavix - 75 mg 1 tab Daily?Palabra Meds? Medications Last Reconciled by Prachi Pardo MA on 10/03/2024 ALLERGIES: lisinopril; promethazine HCl REVIEW OF SYSTEMS: A complete 14-point review of systems was performed and is negative except as noted in interval history. PHYSICAL EXAMINATION:?Clone[facility] PE? VITAL SIGNS: Temperature?99, B/P?123/79, Oxygen?Saturation?98% Weight?203.6?lbs (Change?since?11/01/24:?3.8?lbs) PAIN: 1 - Between no and mild pain ECOG Performance Status: 0 - Asymptomatic and fully active GENERAL APPEARANCE: Appears well, in no apparent distress, appropriately interactive. HEENT: Normocephalic, no temporal wasting, normal conjunctiva, no scleral icterus, normal hearing, lips without lesions, neck normal range of motion. CARDIOVASCULAR: Not assessed. PULMONARY: Normal respiratory effort, no respiratory distress or use of accessory muscles, speaking in full sentences, no tachypnea. EXTREMITIES: No pedal edema or cyanosis. SKIN: Normal skin appearance. NEUROLOGIC: Alert and oriented x4. PSHYCHIATRIC: Appropriate affect, mood normal, behavior normal, intact thought and speech. LABORATORY DATA: I have personally reviewed and interpreted each of the patient?s relevant lab tests, abnormal findings are below: Date 10/02/24 10/04/24 ??WHITE?BLOOD?COUNT?(Thou/mm3) 5.1 7.0 ??RED?BLOOD?COUNT?(Miln/mm3) 4.71 4.97 ??HEMOGLOBIN?(gm/dl) 14.0 15.0 ??HEMATOCRIT?(%) 39.3?L 44.0 ??PLATELET?COUNT?(Thou/mm3) 148 162 ??NEUTROPHILS?%,?AUTO?(%) 78 80 ??LYMPH?%,?AUTO?(%) 9?L 7?L ??NEUTROPHILS,?AUTO?(Thou/mm3) 4.0 5.6 ??GLUCOSE,RANDOM?(mg/dL) 111?H 107?H ??BLOOD?UREA?NITROGEN?(mg/dL) 19 21 ??CREATININE?(mg/dL) 1.20 1.30 ??SODIUM?(mmol/L) 146?H 146?H ??POTASSIUM?(mmol/L) 3.7 4.8 ??CHLORIDE?(mmol/L) 111?H 111?H ??CrCl?(CandG)?(ml/min) 65.09 60.08 ??AST/SGOT?(Unit/L) 23 ? ??ALT/SGPT?(Unit/L) 41 ? ??ALKALINE?PHOSPHATASE?(Unit/L) 116 ? ??BILIRUBIN,?TOTAL?(mg/dL) 0.7 ? ??PROTEIN?TOTAL?(gm/dl) 6.4 ? ??ALBUMIN,?SERUM?(gm/dl) 4.6 ? ??GLOBULIN?(gm/dl) 1.8?L ? ??ALBUMIN/GLOBULIN?RATIO 2.6?H ? ??CALCIUM,?SERUM?(mg/dL) 9.3 9.2 ??CALCIUM?SERUM?(CORRECTED)?(mg/dL) 9.3 ? ASSESSMENT/PLAN:?[facility]/Plan? . Mantle cell lymphoma stage IV disease. Ki-67 less than 30%. Bone marrow involvement more than 90%. SOX11 positive. TP53 mutation not detected.. S/p 6 cycles of Rituxan and Bendamustine (6 08/10/2022?01/28/2023). Last PET/CT scan was done on June 02, 2023 which did not show any evidence of recurrence as documented above. Mr. Alvarez is clinically doing well without any complaints. Currently on maintenance rituximab started on 03/31/2023 Had malignant pleural effusion on the left side and was treated with pleurex The lymphadenopathy has dramatically decreased in size. Splenomegaly is decreased almost half. Peripheral blood lymphocytosis is resolved. Continue maintenance rituximab as per treatment plan for a total of 2 years till 03/2025 . No clinical eveidence of recurrence As patient is healing well from CABG and valve repslcement . Will start treatment ORDERS: Order # Description [id number] Follow Up Appointment [id number] Follow Up Appointment [id number] Follow Up Appointment [id number] Follow Up Appointment [id number] Follow Up Appointment [id number] Follow Up Appointment [id number] Follow Up Appointment [id number] Follow Up Appointment [id number] Follow Up Appointment [id number] Follow Up Appointment RETURN TO CLINIC: BILLING AND COMPLIANCE: I reviewed external records from providers outside my specialty as summarized above. I spent a total of 50 minutes on this patient?s care on the day of their visit excluding time spent related to any billed procedures. This time includes time spent with the patient as well as time spent documenting in the medical record, reviewing patients records and tests, obtaining history, placing orders, communicating with other healthcare professionals, counseling the patient, family or caregiver, and/or care coordination for the diagnoses above. Electronically Signed by: Ishmael Chen MD T: 11:59 PM CC: PCP: Hector Garcia Referring: Hector Garcia This document was completed utilizing speech recognition software. Grammatical errors, random word insertions, pronoun errors, and incomplete sentences are an occasional consequence of this system due to software limitations, ambient noise, and hardware issues. Any formal questions or concerns about the content, text or information contained within the body of this dictation should be directly addressed to the provider for clarification.
== END 2024-11-19 23:59 | disposition home or self-care (01) ==
LOC: SCTC 14:56
PROVIDERS: PCP Internal Medicine; Referring Provider Internal Medicine; Visit Provider Internal Medicine Hematology & Oncology
DX: Z45.2 Encounter for adjustment and management of vascular access device (principal); C83.15 Mantle cell lymphoma, lymph nodes of inguinal region and lower limb
CPT/HCPCS: 36591; 71046; 96523; 99212; A4216; J1642; G0463

== ENCOUNTER → 2024-11-13 | Outpatient (CLI) | payer MEDICARE, OTHER, SELFPAY ==
--- NOTE | 2024-11-13 16:26 | XR_ITS ---
Examination: PA lateral chest 2 views TECHNIQUE: Upright PA and lateral chest 2 views Date and time: November 13, 2024, 1646 hours Comparison July 24, 2024 INDICATIONS: Diagnosis of the specified types of non-Hodgkin's lymphoma FINDINGS: Mild prominence left ventricle Aortic valve replacement. CABG. Right internal jugular Port-A-Cath tip satisfactory position SVC. No pneumonia or pulmonary edema Stable blunting of the left lateral costophrenic angle No mediastinal lymphadenopathy identified IMPRESSION: No mediastinal lymphadenopathy. No pneumonia, pulmonary edema, or pulmonary nodules
== END | disposition home or self-care (01) ==
PROVIDERS: PCP Internal Medicine; Referring Provider Internal Medicine Hematology & Oncology; Visit Provider Internal Medicine Hematology & Oncology
DX: C85.88 Other specified types of non-Hodgkin lymphoma, lymph nodes of multiple sites (principal)
CPT/HCPCS: 71046

== ENCOUNTER → 2024-12-05 | Outpatient (CLI) | payer MEDICARE, OTHER, SELFPAY ==
[2024-12-05 09:27] LABS: Alanine Aminotransferase 23 U/L (10-49); Albumin, Serum 4.2 gm/dL (3.4-4.8); Alkaline Phosphatase 139 U/L (46-116); Aspartate Amino Transferase 16 U/L (0-34); Bilirubin,Direct 0.1 mg/dL (0.0-0.3); Bilirubin,Total 0.4 mg/dL (0.3-1.2); Cardiac Risk Estimate 3.0 RATIO (4.0-6.7); Cholesterol 115 mg/dL (132-200); HDL Cholesterol 38 mg/dL (40-60); LDL Cholesterol,Calculated 66 mg/dL (0-130); Total Protein 6.2 gm/dL (5.7-8.2); Triglycerides 56 mg/dL (30-150)
== END | disposition home or self-care (01) ==
LOC: COPL 08:31
PROVIDERS: PCP Internal Medicine; Referring Provider Internal Medicine; Visit Provider Internal Medicine
DX: E78.5 Hyperlipidemia, unspecified (principal)
CPT/HCPCS: 36415; 80061; 80076

== ENCOUNTER 2024-12-18 06:57 | Outpatient (RCR) | payer MEDICARE, OTHER, SELFPAY ==
[2024-12-17 13:48] LABS: Basophils # (Auto) 0.0 Thou/mm3 (0.0-0.2); Basophils % (Auto) 1 % (0-2.5); Eosinophils # (Auto) 0.1 Thou/mm3 (0.0-0.5); Eosinophils % (Auto) 2 % (0-10); Hematocrit 38.7 % (41.0-53.0); Hemoglobin 11.8 g/dL (13.5-16.0); Immature Granulocytes Auto 0.01 Thou/mm3 (0.00-0.00); Lymphocytes # (Auto) 0.5 Thou/mm3 (1.0-4.8); Lymphocytes % (Auto) 10 % (10-50); Mean Corpuscular HGB Conc 30.5 g/dl (31.0-37.0); Mean Corpuscular Hemoglobin 27.3 pg (25.0-35.0); Mean Corpuscular Volume 89 fL (80-100); Monocytes # (Auto) 0.7 Thou/mm3 (0.0-0.8); Monocytes % (Auto) 13 % (0-12); Neutrophils # (Auto) 3.7 Thou/mm3 (1.8-7.7); Neutrophils % (Auto) 73 % (37-80); Nucleated Red Blood Cell # 0.00 Thou/mm3 (0.00-0.00); Nucleated Red Blood Cell % 0 /100 WBC (0); Platelet Count 222 Thou/mm3 (140-440); RDW Standard Deviation 46.4 fL (35.1-43.9); Red Blood Count 4.33 Miln/mm3 (4.50-5.90); White Blood Count 5.1 Thou/mm3 (3.8-10.6)
[2024-12-17 14:01] LABS: Uric Acid 6.3 mg/dL (3.7-9.2)
[2024-12-17 14:09] LABS: Alanine Aminotransferase 18 U/L (10-49); Albumin, Serum 4.3 gm/dL (3.4-4.8); Albumin/Globulin Ratio 2.2 (1.2-2.2); Alkaline Phosphatase 134 U/L (46-116); Anion Gap 10 (7-16); Aspartate Amino Transferase 20 U/L (0-34); BUN/Creatinine Ratio 13 Ratio (12-20); Bilirubin,Total 0.5 mg/dL (0.3-1.2); Blood Urea Nitrogen 17 mg/dL (9-23); Calcium 9.3 mg/dL (8.3-10.6); Calcium (Corrected) 9.3 mg/dL (8.5-10.1); Carbon Dioxide 25.0 mMol/L (20.0-31.0); Chloride 110 mMol/L (98-107); Creatinine (Component) 1.3 mg/dL (0.6-1.3); Globulin 2.0 gm/dL (2.3-3.5); Glucose 89 mg/dL (74-106); LDH (Lactate Dehydrogenase) 214 U/L (120-246); Osmolality,Calculated 289 (275-295); Potassium 3.9 mMol/L (3.4-5.1); Sodium 145 mMol/L (136-145); Total Protein 6.3 gm/dL (5.7-8.2); eGFR > 60 See Note
== END 2024-12-20 23:59 | disposition home or self-care (01) ==
LOC: SCTC 06:57
PROVIDERS: PCP Internal Medicine; Referring Provider Internal Medicine; Visit Provider Internal Medicine Hematology & Oncology
DX: Z51.11 Encounter for antineoplastic chemotherapy (principal); C83.15 Mantle cell lymphoma, lymph nodes of inguinal region and lower limb; Z95.2 Presence of prosthetic heart valve
CPT/HCPCS: 36415; 80053; 83615; 84550; 85025; 96413; 96415; A4216; J1642; J7040; J7050; Q5119

== ENCOUNTER → 2025-01-09 | Day surgery (SDC) | payer MEDICARE, OTHER, SELFPAY ==
[2025-01-09] VITALS (11 sets, daily range): BP systolic 131–167; BP diastolic 68–99; PULSE 63–72; RESP 14–20; TEMP 36.4; O2SAT 96–100; BMI 33.0
--- NOTE | 2025-01-09 09:01 | EKG_ITS ---
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
[2025-01-09 09:19] LABS: Basophils # (Auto) 0.1 Thou/mm3 (0.0-0.2); Basophils % (Auto) 1 % (0-2.5); Eosinophils # (Auto) 0.2 Thou/mm3 (0.0-0.5); Eosinophils % (Auto) 3 % (0-10); Hematocrit 44.4 % (41.0-53.0); Hemoglobin 13.7 g/dL (13.5-16.0); Immature Granulocytes Auto 0.02 Thou/mm3 (0.00-0.00); Lymphocytes # (Auto) 0.6 Thou/mm3 (1.0-4.8); Lymphocytes % (Auto) 12 % (10-50); Mean Corpuscular HGB Conc 30.9 g/dl (31.0-37.0); Mean Corpuscular Hemoglobin 27.6 pg (25.0-35.0); Mean Corpuscular Volume 89 fL (80-100); Monocytes # (Auto) 0.7 Thou/mm3 (0.0-0.8); Monocytes % (Auto) 14 % (0-12); Neutrophils # (Auto) 3.5 Thou/mm3 (1.8-7.7); Neutrophils % (Auto) 70 % (37-80); Nucleated Red Blood Cell # 0.00 Thou/mm3 (0.00-0.00); Nucleated Red Blood Cell % 0 /100 WBC (0); Platelet Count 142 Thou/mm3 (140-440); RDW Standard Deviation 51.1 fL (35.1-43.9); Red Blood Count 4.97 Miln/mm3 (4.50-5.90); White Blood Count 5.0 Thou/mm3 (3.8-10.6)
[2025-01-09 09:39] LABS: Anion Gap 9 (7-16); BUN/Creatinine Ratio 13 Ratio (12-20); Blood Urea Nitrogen 16 mg/dL (9-23); Calcium 10.0 mg/dL (8.3-10.6); Carbon Dioxide 27.1 mMol/L (20.0-31.0); Chloride 115 mMol/L (98-107); Creatinine (Component) 1.2 mg/dL (0.6-1.3); Glucose 106 mg/dL (74-106); Osmolality,Calculated 301 (275-295); Potassium 5.0 mMol/L (3.4-5.1); Sodium 151 mMol/L (136-145); eGFR > 60 See Note
[2025-01-09 09:59] LABS: INR 1.0 (0.9-1.3); Partial Thromboplastin Time 22.8 Seconds (22.0-36.0); Prothrombin Time 10.6 Seconds (9.0-12.2)
[2025-01-09] MEDS: SODIUM CHLORIDE 0.45 % 500 ML 100 ML IV (13:54)
--- NOTE | 2025-01-09 13:57 | PC.NURSE ---
SURGICAL SITE TO RIGHT GROIN AREA ASYMPTOMATIC, NO ACTIVE BLEEDING, NO HEMATOMA NOTED ON RIGHT GROIN AREA. RIGHT FEMORAL PULSE NOTED WITH NO CHANGES IN STRENGTH AND QUALITY UPON PALPATION (normal), RIGHT DORSALIS PEDIS PULSE NOTED WITH NO CHANGES STRENGTH AND QUALITY (weak). DISTAL CAPILLARY REFILL <3 SECONDS (Right Toes). NO NOTED CHANGES IN COLOR OR TEMPERATURE ON RIGHT LOWER EXTREMITY. PATIENT DENIES GENERAL AND LOCALIZED PAIN. NO TINGLING OR NUMBNESS FELT TO RIGHT LOWER EXTREMITY. NO LOSS IN SENSATION TO RIGHT LOWER EXTREMITY. SURGICAL SITE COVERED WITH GAUZE AND TAGADERM DRESSING, WHICH REMAINS IN PLACE, DRY, AND INTACT. WILL CONTINUE TO MONITOR.
--- NOTE | 2025-01-09 14:45 | PC.NURSE ---
TR band removed at this time. Surgical site asymptomatic, no active bleeding, no hematoma noted on right upper extremity or around the surgical site. Capillary refill < 3 seconds. No noted changes in color or temperature on right upper extremity. Patient denies general and localized pain, no loss in sensation, no tingling or numbness felt to right upper extremity. Tagaderm and Coban wrap applied. Will continue to monitor
[2025-01-09] MEDS: HEPARIN SOD 500 UNIT IV (16:56)
--- NOTE | 2025-01-15 16:58 | ESOP_ITS ---
Cardiac Cath Procedure Procedure Name Date of procedure: 01/09/[address] RECORDING MONITOR: Jorge Alberto Tanner MD PROCEDURE PERFORMED: 1. Left heart cardiac catheterization- Left and right coronary angiograms with LVEDP measurement and left ventriculogram 2. Ultrasound-guided access of the right radial artery 3. Conscious sedation for 30 minutes.. Procedure Narrative HISTORY AND INDICATIONS: Patient was explained the risk benefits and alternatives of performing a left heart cardiac catheterization including the risk of bleeding, heart attack, stroke and in detail and the agreeable for the procedure. Consent signed, placed in the chart and H&P updated. DESCRIPTION OF PROCEDURE: The patient was brought to the cardiac catheterization lab and all asceptic precautions were followed. Patient was given 1 Mg of Versed and 50 mcg of fentanyl for moderate conscious sedation. 2 mL of lidocaine was given in the right wrist. The right radial artery was accessed via the ultrasound guidance as well as micropuncture technique. A 6 Mongolian glide sheath was introduced. We then used a 5 Mongolian TIG 4 catheter to perform the left and right coronary angiograms as well as a left ventriculogram which showed the following findings. 1. Left ventricular ejection fraction was normal at 60 to 65% without any regional wall motion abnormalities. LVEDP was normal at 9 mmHg. There was no significant transvalvular aortic gradient. 2. Right dominant circulation 3. Left main artery is a large-caliber vessel gives rise to LAD, LCX and without any significant disease. 4. LAD is a large sized artery, gives rise to a medium size diagonal and without show any significant disease. 5. LCx is a large sized artery, gives rise to a medium OM1 and small OM2 without any significant disease. 6. RCA is a large artery, gives rise to a medium RPDA and RPL without any significant disease. A radial band was used to achieve the hemostasis of the right radial artery access. Patient will be monitored in the cardiac paint stock clerk for the next 2 to 3 hours and will be discharged home / telemetry later today if hemodynamically stable. Complications: None Specimens: None Blood loss: Estimated 5-10 ml Summary/findings: 1. Abnornal Stress test: LHC showed normal coronaries with only minimal luminal irregularities and no angiographically significant obstruction. 2. LVEF normal at 60-65% and LVEDP normal at 10 mmHg. No significant transvalvular aortic gradient. Recommendations: 1. Recommend aggressive medical treatment and aggressive risk factor modification. 2. Recommended no lifting more than 5 pounds for next 7-10 days and follow up in my office in 7 days. Jorge Alberto Tanner MD Interventional Cardiology.
== END | disposition home or self-care (01) ==
PROVIDERS: PCP Internal Medicine; Referring Provider Internal Medicine Cardiovascular Disease; Visit Provider Internal Medicine Cardiovascular Disease
PROC: (CPT 93458; principal; 2025-01-09 11:30)
DX: I25.119 Atherosclerotic heart disease of native coronary artery with unspecified angina pectoris (principal); I35.0 Nonrheumatic aortic (valve) stenosis; Z95.3 Presence of xenogenic heart valve; Z95.1 Presence of aortocoronary bypass graft; D61.810 Antineoplastic chemotherapy induced pancytopenia; E66.9 Obesity, unspecified; R00.1 Bradycardia, unspecified
CPT/HCPCS: 93458; 36415; 80048; 85025; 85610; 85730; 93005; 99152; 99153; A4649; C1769; C1887; C1894; J0360; J0461; J1642; J1643; J2250; J2312; J2371; J3010; J3490; J7030; Q9967; C1725

== ENCOUNTER 2025-01-17 10:32 | Outpatient (RCR) | payer MEDICARE, OTHER, SELFPAY ==
[2025-01-16 12:36] LABS: Basophils # (Auto) 0.0 Thou/mm3 (0.0-0.2); Basophils % (Auto) 1 % (0-2.5); Eosinophils # (Auto) 0.1 Thou/mm3 (0.0-0.5); Eosinophils % (Auto) 3 % (0-10); Hematocrit 41.6 % (41.0-53.0); Hemoglobin 13.3 g/dL (13.5-16.0); Immature Granulocytes Auto 0.01 Thou/mm3 (0.00-0.00); Lymphocytes # (Auto) 0.5 Thou/mm3 (1.0-4.8); Lymphocytes % (Auto) 13 % (10-50); Mean Corpuscular HGB Conc 32.0 g/dl (31.0-37.0); Mean Corpuscular Hemoglobin 27.9 pg (25.0-35.0); Mean Corpuscular Volume 87 fL (80-100); Monocytes # (Auto) 0.5 Thou/mm3 (0.0-0.8); Monocytes % (Auto) 13 % (0-12); Neutrophils # (Auto) 2.6 Thou/mm3 (1.8-7.7); Neutrophils % (Auto) 70 % (37-80); Nucleated Red Blood Cell # 0.00 Thou/mm3 (0.00-0.00); Nucleated Red Blood Cell % 0 /100 WBC (0); Platelet Count 147 Thou/mm3 (140-440); RDW Standard Deviation 48.7 fL (35.1-43.9); Red Blood Count 4.77 Miln/mm3 (4.50-5.90); White Blood Count 3.7 Thou/mm3 (3.8-10.6)
[2025-01-16 12:50] LABS: Uric Acid 6.3 mg/dL (3.7-9.2)
[2025-01-16 12:57] LABS: Alanine Aminotransferase 24 U/L (10-49); Albumin, Serum 4.2 gm/dL (3.4-4.8); Albumin/Globulin Ratio 2.3 (1.2-2.2); Alkaline Phosphatase 115 U/L (46-116); Anion Gap 7 (7-16); Aspartate Amino Transferase 16 U/L (0-34); BUN/Creatinine Ratio 13 Ratio (12-20); Bilirubin,Total 0.8 mg/dL (0.3-1.2); Blood Urea Nitrogen 16 mg/dL (9-23); Calcium 9.9 mg/dL (8.3-10.6); Calcium (Corrected) 9.9 mg/dL (8.5-10.1); Carbon Dioxide 26.6 mMol/L (20.0-31.0); Chloride 113 mMol/L (98-107); Creatinine (Component) 1.2 mg/dL (0.6-1.3); Globulin 1.8 gm/dL (2.3-3.5); Glucose 139 mg/dL (74-106); LDH (Lactate Dehydrogenase) 206 U/L (120-246); Osmolality,Calculated 295 (275-295); Potassium 4.4 mMol/L (3.4-5.1); Sodium 147 mMol/L (136-145); Total Protein 6.0 gm/dL (5.7-8.2); eGFR > 60 See Note
--- NOTE | 2025-01-21 23:10 | CTCFLWUP_ITS ---
Patient: JEFFREY ALVAREZ : 1960 Page 5 of 7 FOLLOW UP NOTE DATE OF SERVICE: 01/17/2025 NAME: JEFFREY ALVAREZ ACCOUNT: [id number] : 1960 AGE: 64 INTERVAL HISTORY: Patient completed CABG and Aortic valve replacement. Patient resumed his Rituxan. He is doing well and have no complaints ONCOLOGY HISTORY: DIAGNOSIS: Other specified types of non-Hodgkin lymphoma, lymph nodes of multiple sites [ICD10] C85.88 Mantle cell lymphoma stage IV disease. Ki-67 less than 30%. Bone marrow involvement more than 90%. SOX11 positive. TP53 mutation not detected. Currently on maintenance rituximab (03/31/2023?? planned for 2 years ) S/p 6 cycles of Bendamustine and rituximab (08/17/2022 - 01/28/2023). Pleural effusion resolved with pleurodesis. Aortic stenosis, being followed by Dr. Alex Jerez and planned for TAVR DATE OF DIAGNOSIS: 07/22/2022 STAGE/TNM: Mantle cell lymphoma stage IV TREATMENT HISTORY: Care?Plan Start?Date Cycle Day Intent Rituxan?375?+?Bendamustine?90?Aura 08/09/2022 1 28 Palliative Rituximab?375mg/m*2?maint?q?2month?for?3?yrs?Mantle?ceel?lymphoma 03/31/2023 1 60 Palliative HISTORY OF PRESENT ILLNESS: Jeffrey Alvarez is a 64-year-old ENG speaking male without significant past medical history was seen by his primary care doctor yesterday who noticed diffuse lymphadenopathy, splenomegaly as well as lymphocytosis. 07/22/2022: WBC 22.6, absolute lymphocyte count 16.7, hemoglobin 7.3, MCV 90, platelets 71,000, nucleated RBCs 0.05, creatinine 1.7, T. bili 0.6, ferritin 43, B12 305, TSH 2.10 07/23/2022: Flow cytometry of the peripheral blood Neotype analysis CLL profile? 07/26/2022: Right inguinal lymph node excision biopsy? 08/02/2022:Bone marrow biopsy and aspiration? 09/30/2022: PET/CT scan. Compared with August 05, 2022: Significant treatment response with decrease in neck, supraclavicular, mediastinal, axillary, abdominal and pelvic lymphadenopathy. Patient had multiple left-sided pleurodesis done for recurrent pleural effusion. 01/28/2023: Completed 6 cycles of Bendamustine and rituximab. 03/31/2023: Mr. Alvarez is started on maintenance rituximab. 06/02/2023: PET/CT scan? 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 Tobacco?Use:?Denies ETOH?Use:?Socailly Drug?Note:?Denies Social?History?Note:?Lives?with? MEDICATIONS: 1. Plavix - 75 mg 1 tab Daily Medications Last Reconciled by Prachi Garnett MD on 01/17/2025 ALLERGIES: lisinopril; promethazine HCl REVIEW OF SYSTEMS: A complete 14-point review of systems was performed and is negative except as noted in interval history. PHYSICAL EXAMINATION: VITAL SIGNS: Temperature?97.4, B/P?143/73, Oxygen?Saturation?93% Weight?204?lbs (Change?since?01/16/25:?-1.6?lbs) PAIN: 0 - No pain ECOG Performance Status: 0 - Asymptomatic and fully active GENERAL APPEARANCE: Appears well, in no apparent distress, appropriately interactive. HEENT: Normocephalic, no temporal wasting, normal conjunctiva, no scleral icterus, normal hearing, lips without lesions, neck normal range of motion. CARDIOVASCULAR: Not assessed. PULMONARY: Normal respiratory effort, no respiratory distress or use of accessory muscles, speaking in full sentences, no tachypnea. EXTREMITIES: No pedal edema or cyanosis. SKIN: Normal skin appearance. NEUROLOGIC: Alert and oriented x4. PSHYCHIATRIC: Appropriate affect, mood normal, behavior normal, intact thought and speech. LABORATORY DATA: I have personally reviewed and interpreted each of the patient?s relevant lab tests, abnormal findings are below: Date 01/09/25 01/16/25 ??WHITE?BLOOD?COUNT?(Thou/mm3) 5.0 3.7?L ??RED?BLOOD?COUNT?(Miln/mm3) 4.97 4.77 ??HEMOGLOBIN?(gm/dl) 13.7 13.3?L ??HEMATOCRIT?(%) 44.4 41.6 ??PLATELET?COUNT?(Thou/mm3) 142 147 ??NEUTROPHILS?%,?AUTO?(%) 70 70 ??LYMPH?%,?AUTO?(%) 12 13 ??NEUTROPHILS,?AUTO?(Thou/mm3) 3.5 2.6 ??GLUCOSE,RANDOM?(mg/dL) ? 139?H ??BLOOD?UREA?NITROGEN?(mg/dL) ? 16 ??CREATININE?(mg/dL) ? 1.20 ??SODIUM?(mmol/L) ? 147?H ??POTASSIUM?(mmol/L) ? 4.4 ??CHLORIDE?(mmol/L) ? 113?H ??CrCl?(CandG)?(ml/min) ? 65.40 ??AST/SGOT?(Unit/L) ? 16 ??ALT/SGPT?(Unit/L) ? 24 ??ALKALINE?PHOSPHATASE?(Unit/L) ? 115 ??BILIRUBIN,?TOTAL?(mg/dL) ? 0.8 ??PROTEIN?TOTAL?(gm/dl) ? 6.0 ??ALBUMIN,?SERUM?(gm/dl) ? 4.2 ??GLOBULIN?(gm/dl) ? 1.8?L ??ALBUMIN/GLOBULIN?RATIO ? 2.3?H ??CALCIUM,?SERUM?(mg/dL) ? 9.9 ??CALCIUM?SERUM?(CORRECTED)?(mg/dL) ? 9.9 ??LDH,?TOTAL?(Unit/L) ? 206 ASSESSMENT/PLAN: . Mantle cell lymphoma stage IV disease. Ki-67 less than 30%. Bone marrow involvement more than 90%. SOX11 positive. TP53 mutation not detected.. S/p 6 cycles of Rituxan and Bendamustine (6 08/10/2022?01/28/2023). Last PET/CT scan was done on June 02, 2023 which did not show any evidence of recurrence as documented above. Mr. Alvarez is clinically doing well without any complaints. Currently on maintenance rituximab started on 03/31/2023 Had malignant pleural effusion on the left side and was treated with pleurex The lymphadenopathy has dramatically decreased in size. Splenomegaly is decreased almost half. Peripheral blood lymphocytosis is resolved. Continue maintenance rituximab as per treatment plan for a total of 2 years till 03/2025 . Will give 1 extra dose as patient missed secondary to his cardiac issues No clinical eveidence of recurrence Continue treatment Advised to remain up-to-date on vaccination ORDERS: Order # Description [id number] Follow Up 6 Month + Comprehensive Metabolic Panel - 12 + CBC with Auto Diff + Uric Acid, Serum [id number] Lactate Dehydrogenase (LDH) RETURN TO CLINIC: I reviewed the diagnosis, prognosis, and recommended treatment/procedure options with the patient (and/or their legal business services sales representative), including the potential benefits, risks, side effects and alternative therapies. We also discussed the option of no treatment and the possibility of clinical trial participation, if applicable. All questions were addressed, and they demonstrated understanding. They provided informed consent to proceed with the proposed plan of care. BILLING AND COMPLIANCE: I reviewed external records from providers outside my specialty as summarized above. I spent a total of 50 minutes on this patient?s care on the day of their visit excluding time spent related to any billed procedures. This time includes time spent with the patient as well as time spent documenting in the medical record, reviewing patients records and tests, obtaining history, placing orders, communicating with other healthcare professionals, counseling the patient, family or caregiver, and/or care coordination for the diagnoses above. Electronically Signed by: Ishmael Chen MD T: 11:08 PM CC: PCP: Hector Garcia Referring: Hector Garcia This document was completed utilizing speech recognition software. Grammatical errors, random word insertions, pronoun errors, and incomplete sentences are an occasional consequence of this system due to software limitations, ambient noise, and hardware issues. Any formal questions or concerns about the content, text or information contained within the body of this dictation should be directly addressed to the provider for clarification.
== END 2025-01-20 23:59 | disposition home or self-care (01) ==
LOC: SCTC 10:32
PROVIDERS: PCP Internal Medicine; Referring Provider Internal Medicine; Visit Provider Internal Medicine Hematology & Oncology
DX: Z08 Encounter for follow-up examination after completed treatment for malignant neoplasm (principal); Z85.72 Personal history of non-Hodgkin lymphomas; Z92.21 Personal history of antineoplastic chemotherapy
CPT/HCPCS: 36415; 80053; 83615; 84550; 85025; 99212; G0463

== ENCOUNTER 2025-02-20 07:11 | Outpatient (RCR) | payer MEDICARE, OTHER, SELFPAY | END 2025-03-22 23:59 | disposition home or self-care (01) | LOC: SCTC 07:11 | PROVIDERS: PCP Internal Medicine; Referring Provider Internal Medicine Hematology & Oncology; Visit Provider Internal Medicine Hematology & Oncology | DX: Z51.11 Encounter for antineoplastic chemotherapy (principal); C83.15 Mantle cell lymphoma, lymph nodes of inguinal region and lower limb | CPT/HCPCS: 96413; 96415; A4216; J1642; J7040; J7050; Q5119 ==

== ENCOUNTER → 2025-04-03 | Outpatient (CLI) | payer MEDICARE, OTHER, SELFPAY ==
[2025-04-03 08:48] LABS: Collection Type, Urine Clean Catch; Squamous Epithelial Cell,Urine 0 /hpf (0-5)
[2025-04-03 09:26] LABS: Basophils # (Auto) 0.0 Thou/mm3 (0.0-0.2); Basophils % (Auto) 1 % (0-2.5); Bilirubin,Urine Negative (Negative); Blood,Urine Negative (Negative); Clarity,Urine Clear (Clear/Hazy); Color,Urine Yellow (Lt Yel-Yel); Eosinophils # (Auto) 0.1 Thou/mm3 (0.0-0.5); Eosinophils % (Auto) 5 % (0-10); Glucose, Urine Negative (Negative); Hematocrit 45.0 % (41.0-53.0); Hemoglobin 14.9 g/dL (13.5-16.0); Immature Granulocytes Auto 0.00 Thou/mm3 (0.00-0.00); Ketones,Urine Negative (Negative); Leukocyte Esterase,Urine Negative (Negative); Lymphocytes # (Auto) 0.4 Thou/mm3 (1.0-4.8); Lymphocytes % (Auto) 16 % (10-50); Mean Corpuscular HGB Conc 33.1 g/dl (31.0-37.0); Mean Corpuscular Hemoglobin 28.7 pg (25.0-35.0); Mean Corpuscular Volume 87 fL (80-100); Monocytes # (Auto) 0.8 Thou/mm3 (0.0-0.8); Monocytes % (Auto) 29 % (0-12); Neutrophils # (Auto) 1.4 Thou/mm3 (1.8-7.7); Neutrophils % (Auto) 50 % (37-80); Nitrite,Urine Negative (Negative); Nucleated Red Blood Cell # 0.00 Thou/mm3 (0.00-0.00); Nucleated Red Blood Cell % 0 /100 WBC (0); PH,Urine 6.0 (5.0-7.0); Platelet Count 151 Thou/mm3 (140-440); Protein,Urine Negative (Neg - Trace); RBC,Urine 1 /hpf (0-3); RDW Standard Deviation 50.1 fL (35.1-43.9); Red Blood Count 5.19 Miln/mm3 (4.50-5.90); Specific Gravity,Urine 1.022 (1.001-1.035); Urobilinogen,Urine Negative mg/dL (0.0-1.0); WBC,Urine 1 /hpf (0-5); White Blood Count 2.8 Thou/mm3 (3.8-10.6)
[2025-04-03 09:38] LABS: Alanine Aminotransferase 44 U/L (10-49); Albumin, Serum 4.7 gm/dL (3.4-4.8); Albumin/Globulin Ratio 3.4 (1.2-2.2); Alkaline Phosphatase 115 U/L (46-116); Anion Gap 7 (7-16); Aspartate Amino Transferase 28 U/L (0-34); BUN/Creatinine Ratio 13 Ratio (12-20); Bilirubin,Total 1.0 mg/dL (0.3-1.2); Blood Urea Nitrogen 16 mg/dL (9-23); Calcium 9.3 mg/dL (8.3-10.6); Calcium (Corrected) 9.3 mg/dL (8.5-10.1); Carbon Dioxide 30.1 mMol/L (20.0-31.0); Cardiac Risk Estimate 2.3 RATIO (4.0-6.7); Chloride 111 mMol/L (98-107); Cholesterol 119 mg/dL (132-200); Creatinine (Component) 1.2 mg/dL (0.6-1.3); Globulin 1.4 gm/dL (2.3-3.5); Glucose 111 mg/dL (74-106); HDL Cholesterol 51 mg/dL (40-60); LDL Cholesterol,Calculated 54 mg/dL (0-130); Osmolality,Calculated 296 (275-295); Potassium 4.2 mMol/L (3.4-5.1); Sodium 148 mMol/L (136-145); Total Protein 6.1 gm/dL (5.7-8.2); Triglycerides 69 mg/dL (30-150); eGFR > 60 See Note
== END | disposition home or self-care (01) ==
LOC: SLAB 08:42
PROVIDERS: PCP Internal Medicine; Referring Provider Internal Medicine; Visit Provider Internal Medicine
DX: E78.5 Hyperlipidemia, unspecified (principal)
CPT/HCPCS: 36415; 80053; 80061; 81001; 85025

== ENCOUNTER 2025-04-30 06:57 | Outpatient (RCR) | payer MEDICARE, OTHER, SELFPAY ==
[2025-04-30 07:40] LABS: Basophils # (Auto) 0.0 Thou/mm3 (0.0-0.2); Basophils % (Auto) 1 % (0-2.5); Eosinophils # (Auto) 0.2 Thou/mm3 (0.0-0.5); Eosinophils % (Auto) 3 % (0-10); Hematocrit 42.7 % (41.0-53.0); Hemoglobin 14.4 g/dL (13.5-16.0); Immature Granulocytes Auto 0.02 Thou/mm3 (0.00-0.00); Lymphocytes # (Auto) 0.5 Thou/mm3 (1.0-4.8); Lymphocytes % (Auto) 9 % (10-50); Mean Corpuscular HGB Conc 33.7 g/dl (31.0-37.0); Mean Corpuscular Hemoglobin 28.9 pg (25.0-35.0); Mean Corpuscular Volume 86 fL (80-100); Monocytes # (Auto) 0.7 Thou/mm3 (0.0-0.8); Monocytes % (Auto) 12 % (0-12); Neutrophils # (Auto) 4.3 Thou/mm3 (1.8-7.7); Neutrophils % (Auto) 74 % (37-80); Nucleated Red Blood Cell # 0.00 Thou/mm3 (0.00-0.00); Nucleated Red Blood Cell % 0 /100 WBC (0); Platelet Count 133 Thou/mm3 (140-440); RDW Standard Deviation 46.1 fL (35.1-43.9); Red Blood Count 4.98 Miln/mm3 (4.50-5.90); White Blood Count 5.7 Thou/mm3 (3.8-10.6)
[2025-04-30 08:03] LABS: Alanine Aminotransferase 37 U/L (10-49); Albumin, Serum 4.0 gm/dL (3.4-4.8); Albumin/Globulin Ratio 2.0 (1.2-2.2); Alkaline Phosphatase 106 U/L (46-116); Anion Gap 8 (7-16); Aspartate Amino Transferase 22 U/L (0-34); BUN/Creatinine Ratio 17 Ratio (12-20); Bilirubin,Total 0.8 mg/dL (0.3-1.2); Blood Urea Nitrogen 19 mg/dL (9-23); Calcium 8.9 mg/dL (8.3-10.6); Calcium (Corrected) 8.9 mg/dL (8.5-10.1); Carbon Dioxide 25.8 mMol/L (20.0-31.0); Chloride 111 mMol/L (98-107); Creatinine (Component) 1.1 mg/dL (0.6-1.3); Globulin 2.0 gm/dL (2.3-3.5); Glucose 115 mg/dL (74-106); Osmolality,Calculated 291 (275-295); Potassium 3.8 mMol/L (3.4-5.1); Sodium 145 mMol/L (136-145); Total Protein 6.0 gm/dL (5.7-8.2); eGFR > 60 See Note
== END 2025-05-22 23:59 | disposition home or self-care (01) ==
LOC: SCTC 06:57
PROVIDERS: PCP Internal Medicine; Referring Provider Internal Medicine; Visit Provider Internal Medicine Hematology & Oncology
DX: Z51.11 Encounter for antineoplastic chemotherapy (principal); C83.15 Mantle cell lymphoma, lymph nodes of inguinal region and lower limb
CPT/HCPCS: 80053; 85025; 96413; 96415; A4216; J1642; J7040; J7050; Q5119